=== PATIENT | female | born 1945 | race Caucasian/White ===

== ENCOUNTER 2016-11-02 10:00 | Outpatient (CLI) | payer MEDICARE, OTHER ==
[~2016-11-02] VITALS: Ht 167.6 cm; Wt 71.7 kg
[~2016-11-02 10:00] MED LIST: ALLO100T PO; ASCO500C14 PO; ASP81TEC PO; CHOL5000 PO; CLOP75TA PO; CYAN10006 PO; EXEN5PEN3 SQ; FELO10TA3 PO; FELO5TAB2 PO; FERR-74 PO; FLUT1DIS27 IH; GLIP10TA13 PO; HYDR-3812 PO; HYDR12.56 PO; IRON45TA2 PO; LEVO50TA6 PO; LIOT25TA4 PO; LIRA0.6P INJ; MAGN400T39 PO; METO-272 PO; METO50TA7 PO; MTF500T PO; MULT1CAP27 PO; OLME40TA14 PO; OMEG-105 PO; RT-COMBINH IH; SIMV40TA4 PO; TRAM50TA2 PO; VALS320T14 PO; VITORIN PO
[2016-11-02] MEDS ORDERED: MAGN250T35 PO (10:36)
== END 2016-11-02 11:05 ==
LOC: PREOP 10:00
PROVIDERS: ATTEND Internal Medicine
DX: Z01.818 Encounter for other preprocedural examination (principal); Z12.11 Encounter for screening for malignant neoplasm of colon; K21.9 Gastro-esophageal reflux disease without esophagitis

== ENCOUNTER 2016-11-04 07:14 | Day surgery (SDC) | payer MEDICARE, OTHER ==
[~2016-11-04] VITALS: Ht 167.6 cm; Wt 71.7 kg
[~2016-11-04 07:14] MED LIST changes: +MAGN250T35 PO
[2016-11-04] MEDS ORDERED: 1/2 NS IV SOLUTION 1,000 ML IV STA (07:22)
--- NOTE | 2016-11-04 07:29 | HISTORY AND PHYSICAL ---
DATE OF SERVICE: The patient is a 70-year-old white female referred by Dr. Hughes for screening colonoscopy. She has had one other colonoscopy a little over 10 years ago that she believes was unremarkable. She did have an episode of diarrhea starting about 3 weeks ago that lasted for 2 weeks. She was started on a probiotic a little over a week ago and reports that bowel habits are just about back to normal. She denies weight loss, bright red blood per rectum, melena or associated lower quadrant abdominal pain. She does report increased epigastric discomfort with increased antacid usage for the past several months. She denies dysphagia. She is not aware of any past history of peptic ulcer disease. She is on no nonsteroidal medication but does take an aspirin daily for secondary prevention. PAST MEDICAL HISTORY: Significant for type 2 diabetes mellitus, hypertension, hyperlipidemia and coronary artery disease. She has a distant past history of coronary artery stent placement. PAST SURGICAL HISTORY: She has had a total abdominal hysterectomy for benign reasons and some orthopedic surgeries. SOCIAL HISTORY: She is retired with no past smoking history and no reported alcohol intake. FAMILY HISTORY: She is not aware of any family history for colon cancer or colon polyps. Her mother of breast cancer at the age of 60. Father at age 69 with history of COPD and heart disease. MEDICATIONS: 1. Levothyroxine 50 mcg daily. 2. Glipizide 10 mg b.i.d. 3. Hydrochlorothiazide 12.5 ever other day. 4. Felodipine 10 mg daily. 5. Allopurinol 100 mg b.i.d. 6. Simvastatin 40 mg daily. 7. Metoprolol 50 mg daily. 8. Aspirin 81 mg daily. 9. Vitamin D 5000 units daily. 10. Victoza 1.2 mg subcu daily. 11. Fish oil 1 gm b.i.d. 12. Vitamin C. 13. Had been on ferrous sulfate 325 mg daily. 14. Magnesium 400 mg daily. PHYSICAL EXAMINATION: Reveals a pleasant white female, appears to be in no acute distress. BLOOD PRESSURE: 136/64. ORAL CAVITY: Reveals Mallampati class III pharyngeal configuration. NECK: No JVD, adenopathy or bruits. CHEST: Clear. CARDIOVASCULAR: Regular rate and rhythm without murmur, S3 or S4. ABDOMEN: Soft, supple. There is epigastric discomfort to palpation without rebound or guarding. No bruits are noted. EXTREMITIES: Reveal no clubbing, cyanosis or edema. ASSESSMENT: The patient is set up for screening colonoscopy as well as diagnostic esophagogastroduodenoscopy. The latter due to epigastric pain and increased reflux symptoms. She is advised to abstain from aspirin usage. Prep instructions with split dose Colyte were given and questions were answered. She is set up for November 04, 2016. Job ID: [id number] DocumentID: [id number] Dictated Date: 10/27/2016 08:47:23 Source Water Protection Specialist Date: 10/27/2016 10:29:09 Dictated By: DAREN ALMODOVAR MD MTDD
[2016-11-04] MEDS ORDERED: NALOXONE 0.4 MG/ML 1 ML (NARCAN) VIAL IVP PRN (07:30)
[2016-11-04] MEDS ORDERED: LIDOCAINE JELLY 2% (XYLOCAINE) 5 ML TUBE MM PRN (07:30)
[2016-11-04] MEDS ORDERED: FLUMAZENIL (ROMAZICON) 0.1 MG/ML 5 ML VIAL INJ PRN (07:30)
[2016-11-04] MEDS ORDERED: HURRICAINE EXT TUBE (BENZOCAINE) XX PRN (07:30)
[2016-11-04] MEDS ORDERED: 1/2 NS IV SOLUTION 1,000 ML IV ONE (07:37)
[2016-11-04 07:45] VITALS: BP 150/72
[2016-11-04] MEDS ORDERED: HURRICAINE EXT TUBE (BENZOCAINE) ONE (08:12)
[2016-11-04] MEDS ORDERED: fentaNYL INJECTION 100 MCG/2 ML AMP ONE ×2 (08:12)
[2016-11-04] MEDS ORDERED: LIDOCAINE JELLY 2% (XYLOCAINE) 5 ML TUBE ONE (08:12)
[2016-11-04] MEDS ORDERED: MIDAZOLAM 2 MG/2 ML (VERSED) VIAL ONE ×3 (08:12)
[2016-11-04] MEDS: fentaNYL INJECTION 100 MCG/2 ML AMP IVP PRN ×3 (08:40→08:55)
[2016-11-04] MEDS: MIDAZOLAM 2 MG/2 ML (VERSED) VIAL IVP PRN ×4 (08:41→09:15)
--- NOTE | 2016-11-04 09:34 | Pre-Op Note & Conscious Sedat ---
Pre-Operative Progress Note H&P Reviewed The H&P was reviewed, patient examined and no changes noted. Date H&P Reviewed: November 04, 2016 Time H&P Reviewed: 08:00 Conscious Sedation Pre-Proced ASA Class: 2 Airway Mallampati Classification: (huslia appropriate class) I. II. III, IV Lungs Heart ASA score ASA 1: a normal healthy patient ASA 2: a patient with a mild systemic disease (mid diabetes, controlled hypertension, obesity ASA 3: a patient with a severe systemic disease that limits activity (angina , COPD, prior Myocardial infarction) ASA 4: a patient with an incapacitating disease that is a constant threat to life (CHF, renal failure) ASA 5: a moribund patient not expected to survive 24 hrs. (ruptured aneurysm) ASA 6: a declared brain patient whose organs are being harvested. For emergent operations, add the letter E after the classification Grade 3 Sedation Plan: Analgesia, Amnesia, Plan communicated to team members, Discussed options with patient/fam, Discussed risks with patient/fam Note The patient is an appropriate candidate to undergo the planned procedure, sedation, and anesthesia. The patient immediately re-assessed prior to indication. DAREN ALMODOVAR MD November 04, 2016 09:33
[2016-11-04 09:45] VITALS: BP 147/72
[2016-11-04 10:15] VITALS: BP 124/77
[2016-11-04 10:30] VITALS: BP 124/77
--- NOTE | 2016-11-05 03:26 | OPERATIVE REPORT ---
DATE OF SERVICE: COLONOSCOPY AND DIAGNOSTIC ESOPHAGOGASTRODUODENOSCOPY INDICATION FOR PROCEDURE: Screening colonoscopy as well as diagnostic EGD due to epigastric pain with reflux symptoms. The patient was placed in the left lateral decubitus position. Rectal evaluation was performed. Anal sphincterotome was normal and the perianal reflex was intact. No abnormalities were noted on additional inspection of the anal canal or distal rectal vault. The colonoscope was then inserted into the rectum under direct visualization and advanced to the cecum. The cecum was identified by identification of the ileocecal valve and the cecal strap. Photographic documentation was obtained. A careful inspection was made as the colonoscope was withdrawn. FINDINGS: There was no evidence for internal or external hemorrhoids. The rectum, sigmoid colon, descending colon, transverse colon, ascending colon and the cecum were unremarkable with no evidence for neoplasia, diverticular disease or vascular malformation. ASSESSMENT: Normal colonoscopy to the cecum. As the patient denies any history of first-degree relatives with colon cancer, considering this patient's age, future screening colonoscopy is debatable but would reevaluate in 10 years. We then proceeded with esophagogastroduodenoscopy evaluation. The upper endoscope was inserted into the oral cavity and under direct visualization the esophagus was intubated. The scope was passed down the esophagus through the stomach and into the second portion of the duodenum. A careful inspection was made as the endoscope was withdrawn. FINDINGS: The esophagus was unremarkable. There was no evidence of rings, webs, strictures or Rascon's change. The Z-line was distinct with no evidence for ulceration. The cardia, fundus and antrum of the stomach were unremarkable. The pylorus, the pyloric channel, the duodenal bulb and second portion of the duodenum were unremarkable as well with no evidence of peptic ulcer disease. There is evidence for a small sliding hiatal hernia. ASSESSMENT: Small hiatal hernia is noted without evidence for erosive esophagitis. The patient was reassured by today's findings. She was advised to continued p.r.n. antacid therapy and non-medication reflux measures were discussed as well. I thank you for the referral of this pleasant lady. Sincerely, Job ID: [id number] DocumentID: [id number] Dictated Date: 11/04/2016 11:50:37 Currency Machine Operator Date: 11/05/2016 03:25:24 Dictated By: DAREN ALMODOVAR MD [facility]
== END 2016-11-04 10:30 | disposition home or self-care (01) ==
LOC: ENDO 07:14
PROVIDERS: ATTEND Internal Medicine
DX: Z12.11 Encounter for screening for malignant neoplasm of colon (principal); K21.9 Gastro-esophageal reflux disease without esophagitis; K44.9 Diaphragmatic hernia without obstruction or gangrene; E11.9 Type 2 diabetes mellitus without complications; I10 Essential (primary) hypertension; E78.5 Hyperlipidemia, unspecified; I25.10 Atherosclerotic heart disease of native coronary artery without angina pectoris; Z95.5 Presence of coronary angioplasty implant and graft; Z79.899 Other long term (current) drug therapy
CPT/HCPCS: 43235; G0121

== ENCOUNTER 2016-12-12 09:37 | Emergency (ER) | payer MEDICARE, OTHER ==
[~2016-12-12] VITALS: Ht 167.6 cm; Wt 70.3 kg
[2016-12-12] MEDS ORDERED: KETOROLAC 30 MG/ML VIAL IM ONE (10:45)
--- NOTE | 2016-12-12 11:06 | ED Back Pain ---
General Chief Complaint: Back Problems Stated Complaint: BACK PAIN Nursing Triage Note: STATES SHE SPENT MOST OF THE DAY [employer] ON MONDAY BENDING OVER ALOT. HAS HAD BACK PAIN SINCE BUT MORE SO YESTERDAY AND TODAY. STATES SHE TOOK A HYDROCODONE DURING THE NOC BUT DID NOT SLEEP WELL. Nursing Sepsis Screen: No Definite Risk Source of Information: Patient Exam Limitations: No Limitations History of Present Illness Time Seen by Provider: 10:25 Initial Comments This 71-year-old woman presents to emergency room with complaints of lower back pain progressively worsening since Monday when she stood to can beats all day. She has a history of lumbar spine problems and right sacroiliac problems. She had previously received injections for this problem but her provider moved from the area. She has some associated right knee pain which is not unusual for her. She denies any paresthesias or weakness in the extremities. She has chronic incontinence problems but denies any acute bowel or bladder changes. She took a hydrocodone at home which was not very helpful. She has not used any NSAIDs yet. Allergies and Home Medications Allergies Coded Allergies: aspirin (Unverified Allergy, Mild, HIVES, 01/15/10) CAN TAKE THE 81MG BUT NOT THE 325MG acetaminophen (Unverified Adverse Reaction, Mild, HALLUCINATIONS, 01/15/10) oxycodone (Unverified Adverse Reaction, Mild, HALLUCINATIONS, 01/15/10) Home Medications Allopurinol 100 Mg Tablet, 100 MG PO BID, (Reported) Ascorbic Acid 500 Mg Capsule.sa, 500 MG PO DAILY, (Reported) Aspirin 81 Mg Tabec, 81 MG PO DAILY, (Reported) Cephalexin 500 Mg Capsule, 500 MG PO TID, #21 Prescribed by: INÉS GANDHI on 12/12/16 1403 Cholecalciferol (Vitamin D3) 5,000 Unit Capsule, 5,000 UNIT PO DAILY, (Reported) Cyanocobalamin (Vitamin B-12) 1,000 Mcg Tablet, 1,000 MCG PO DAILY, (Reported) Cyclobenzaprine HCl 10 Mg Tablet, 10 MG PO TID PRN for SPASMS, #10 Prescribed by: INÉS GANDHI on 12/12/16 1403 Felodipine 10 Mg Tab.er.24h, 10 MG PO DAILY, (Reported) Ferrous Sulfate 325 Mg Tablet, 325 MG PO DAILY, (Reported) Glipizide 10 Mg Tablet, 10 MG PO BID, (Reported) Hydrochlorothiazide 12.5 Mg Tablet, 12.5 MG PO TuThSa, (Reported) Levothyroxine Sodium 50 Mcg Tablet, 50 MCG PO DAILY, (Reported) Liraglutide 0.6 Mg/0.1 Ml Pen.injctr, 1.2 MG INJ DAILY, (Reported) Magnesium Oxide 250 Mg Tablet, 250 MG PO DAILY, (Reported) Metoprolol Succinate 50 Mg Tab.er.24h, 50 MG PO HS, (Reported) Multivitamins 1 Each Capsule, 1 TAB PO DAILY, (Reported) [place]-3 Acid Ethyl Esters 1 Gm Capsule, 1 GM PO DAILY, (Reported) [place]-3 Acid Ethyl Esters 1 Gm Capsule, 2 GM PO EVERY EVENING, (Reported) TAKES 2 (1 GM) TABLETS Prednisone 10 Mg Tab, 10 MG PO DAILY, #5 Prescribed by: INÉS GANDHI on 12/12/16 1403 Simvastatin 40 Mg Tablet, 40 MG PO HS, (Reported) Constitutional: no symptoms reported EENTM: no symptoms reported Respiratory: no symptoms reported Cardiovascular: no symptoms reported Gastrointestinal: no symptoms reported Genitourinary: see HPI Musculoskeletal: see HPI Skin: no symptoms reported Psychiatric/Neurological: No Symptoms Reported Past Wgtmpqv-Sosrlt-Mesnng Hx Patient Social History Alcohol Use: Denies Use Recreational Drug Use: No Smoking Status: Never a Smoker Recent Foreign Travel: No Contact w/Someone Who Travel: No Recent Infectious Disease Expo: No Recent Hopitalizations: No Immunizations Up To Date Tetanus Booster (TDap): Unknown Date of Pneumonia Vaccine: May 09, 2014 Date of Influenza Vaccine: May 11, 2016 Seasonal Allergies Seasonal Allergies: No Surgeries HX Surgeries: Yes (FOOT SURGERY, bilat TKR, R hip replaced) Surgeries: Coronary Stent, Gallbladder, Hysterectomy, Joint Replacement, Orthopedic Respiratory Hx Respiratory Disorders: Yes Respiratory Disorders: Chronic Bronchitis Cardiovascular Hx Cardiac Disorders: Yes Cardiac Disorders: Coronary Artery Disease, High Cholesterol, Hypertension Neurological Hx Neurological Disorders: No Reproductive System Hx Reproductive Disorders: No Sexually Transmitted Disease: No HIV/AIDS: No Female Reproductive Disorders: Denies CAT DRIVER History: Hysterectomy Genitourinary Hx Genitourinary Disorders: Yes (bladder prolapse, kidney disease, incontinence ) Genitourinary Disorders: Renal Failure Gastrointestinal Hx Gastrointestinal Disorders: Yes (recent diarrhea for about 16 days) Gastrointestinal Disorders: Gastroesophageal Reflux Musculoskeletal Hx Musculoskeletal Disorders: Yes Musculoskeletal Disorders: Osteoporosis, Arthritis, Back Injury, Chronic Back Pain Endocrine Hx Endocrine Disorders: Yes Endocrine Disorders: Hypothyroidsim, Diabetes, Non-Insulin dep HEENT HX ENT Disorders: No Loss of Vision: Denies Hearing Impairment: Denies Cancer Hx Cancer: No Psychosocial Hx Psychiatric Problems: No Integumentary HX Skin/Integumentary Disorder: No Blood Transfusions Hx Blood Disorders: No Family Medical History Significant Family History: No Pertinent Family Hx Physical Exam Vital Signs Vital Sign - Last 12Hours 12/12/16 12/12/16 09:37 14:22 Temp 98.0 Pulse 74 Resp 16 B/P (MAP) 153/71 Pulse Ox 98 O2 Delivery Room Air Capillary Refill : Less Than 3 Seconds General Appearance: No Apparent Distress, WD/WN HEENT: Normal ENT Inspection Neck: Normal Inspection Cardiovascular: Regular Rate, Rhythm, No Edema, Systolic Murmur Respiratory: Lungs Clear, Normal Breath Sounds, No Accessory Muscle Use, No Respiratory Distress Gastrointestinal: Normal Bowel Sounds, Soft, Tenderness (mild in the left lower quadrant) Back: Normal Inspection, No Vertebral Tenderness (mid lumbar spine and paraspinous muscles down into the SI joint region) Extremity: Normal Inspection Neurologic/Psychiatric: Alert, Oriented x3, No Motor/Sensory Deficits, Normal Mood/Affect, director software quality assurance II-XII Norm as Tested Skin: Normal Color, Warm/Dry Progress/Results/Core Measures Results/Orders Lab Results Laboratory Tests Test 12/12/16 11:15 Range/Units Urine Color YELLOW Urine Clarity SLIGHTLY CLOUDY Urine pH 7 5-9 Urine Specific [place] 1.010 L 1.016-1.022 Urine Protein 3+ H NEGATIVE Urine Glucose (UA) NEGATIVE NEGATIVE Urine Ketones NEGATIVE NEGATIVE Urine Nitrite NEGATIVE NEGATIVE Urine Bilirubin NEGATIVE NEGATIVE Urine Urobilinogen NORMAL NORMAL MG/DL Urine Leukocyte Esterase 3+ H NEGATIVE Urine RBC (Auto) NEGATIVE NEGATIVE Urine RBC 0-2 /HPF Urine WBC 25-50 H /HPF Urine Squamous Epithelial Cells 5-10 /HPF Urine Crystals NONE /LPF Urine Bacteria NEGATIVE /HPF Urine Casts NONE /LPF Urine Mucus NEGATIVE /LPF Urine Culture Indicated YES My Orders Orders - INÉS AGUILAR MD Ketorolac Injection (Toradol Injection) (12/12/16 10:45) Ua Culture If Indicated (12/12/16 10:40) Orphenadrine Injection (Norflex Injectio (12/12/16 11:45) Hydrocodone/Apap 5/325 Tablet (Lortab 5 (12/12/16 11:45) Mri Lumbar Spine W/O Contrast (12/12/16 11:34) Urine Culture (12/12/16 11:15) Hydrocodone/Apap 5/325 Tablet (Lortab 5 (12/12/16 14:00) Medications Given in ED Current Medications Medications Dose Ordered Sig/Aron Route Start Time Stop Time Status Last Admin Dose Admin Acetaminophen/ Hydrocodone Bitart 1 tab ONCE ONCE PO 12/12/16 11:45 12/12/16 11:46 DC 12/12/16 11:39 1 TAB Acetaminophen/ Hydrocodone Bitart 1 tab ONCE ONCE PO 12/12/16 14:00 12/12/16 14:01 DC 12/12/16 14:15 1 TAB Ketorolac Tromethamine 30 mg ONCE ONCE IM 12/12/16 10:45 12/12/16 10:46 DC 12/12/16 10:45 30 MG Orphenadrine Citrate 60 mg ONCE ONCE IM 12/12/16 11:45 12/12/16 11:46 DC 12/12/16 11:40 60 MG Vital Signs/I&O Vital Sign - Last 12Hours 12/12/16 12/12/16 09:37 14:22 Temp 98.0 Pulse 74 78 Resp 16 16 B/P (MAP) 153/71 Pulse Ox 98 96 O2 Delivery Room Air Blood Pressure Mean: 98 Progress Note #1: Progress Note Patient received a Toradol injection which improved her pain some. She was able to get up and provide a urine sample. Progress Note #2: Time: 11:46 Progress Note Patient has modest improvement in pain after Toradol. She is still experiencing paroxysms of pain which she believes are spasms. Norflex and hydrocodone have been ordered. I inquired further about her incontinence. She reports this is been progressive over about 6 months. Additional inquired about prior imaging of the spine. She has not had any imaging of the spine beyond x-rays in several years and she has a known significant injury to the lumbar spine from her youth. MRI has been ordered for further evaluation as her incontinence may be related. UTI has also been identified which is probably a contributing factor. Progress Note #3: Progress Note MRI demonstrated some neural foraminal stenosis but no central stenosis. Patient was treated with one additional hydrocodone before dismissal. We discussed steroids which she will start if not improving over the next couple of days. She is aware steroids may cause blood sugar dyscrasias and she will monitor this. We discussed potentially seeking referral to a neurosurgeon or smoke and flame specialist. Diagnostic Imaging Diagonstic Imaging: MRI Plain Films/CT/US/NM/MRI: other (lumbar spine) Comments MRI of the lumbar spine viewed by me and report reviewed. See report below: NAME: SOPHIA CHOPRA [facility] REC#: [id number] PT STATUS: REG ER : 1945 PHYSICIAN: INÉS AGUILAR MD ADMIT DATE: 12/12/16/ER Draft Date of Exam:12/12/16 MRI LUMBAR SPINE W/O CONTRAST PROCEDURE: MRI lumbar spine. TECHNIQUE: A multiplanar/multisequence MRI of the lumbar spine was performed without contrast. INDICATION: Severe back pain. FINDINGS: There is grade 1 retrolisthesis of L2 over L3 and grade 1 spondylolisthesis of L4 over L5. The vertebral body heights are preserved. There is mild disc height loss at the L2-3, L4-5, and L5-S1 levels. There is disc desiccation at all levels. There is prominent facet joint arthropathy in the mid and lower lumbar spine levels with effusions in the L2-3 to L4-5 facet joints and some fluid is also seen between the spinous processes of L2 and L3 and also the spinous processes of L3 and L4. Bone marrow edema around the L2-3 disc is seen, compatible with Modic type I changes. No suspicious focal marrow lesion is seen. The cauda equina and conus medullaris appear grossly unremarkable. T12-L1: No disc herniation. No spinal canal or foraminal stenosis. L1-2: No disc herniation. No spinal canal or foraminal stenosis. L2-3: There is diffuse disc bulge and mild to moderate facet hypertrophy. No central canal stenosis. There is mild to moderate lateral recess stenosis bilaterally abutting the descending L3 nerve roots. The foramina demonstrate moderate narrowing bilaterally. L3-4: There is a diffuse disc bulge and bilateral facet arthropathy, severe on the left and moderate on the right side. No central canal stenosis. There is moderate lateral recess stenosis on the left abutting the descending L4 nerve root. The right lateral recess is patent. There is foraminal stenosis of a moderate degree on both sides, worse on the left. L5-S1: There is a diffuse disc bulge and severe bilateral facet arthropathy. No central canal stenosis. There is moderate to severe bilateral lateral recess stenosis with suggestion of encroachment on the descending L5 nerve roots. The foramina demonstrate mild narrowing bilaterally. L5-S1: Mild disc bulge and mild facet hypertrophy are seen. No central canal stenosis. There is mild lateral recess stenosis bilaterally. The foramina demonstrates severe stenosis on the left and mild stenosis on the right. IMPRESSION: Advanced facet and disc degenerative changes in the mid and lower lumbar spine levels. There is significant lateral recess stenosis bilaterally at the L4-5 level encroaching upon the descending L5 nerve roots. Other findings as above. Dictated on workstation # [id number] Dict: 12/12/16 1308 Trans: 12/12/16 1332 [id number] Interpreted by: NEVA MCDUFFIE MD Departure Impression Impression: Primary Impression: Lower back pain Qualified Codes: M54.5 - Low back pain Additional Impressions: Urinary tract infection Qualified Codes: N39.0 - Urinary tract infection, site not specified Urinary incontinence Qualified Codes: R32 - Unspecified urinary incontinence Muscle spasm Neuroforaminal stenosis of lumbar spine Disposition: 01 HOME, SELF-CARE Condition: Improved Departure-Patient Inst. Decision time for Depature: 13:45 Referrals: MIRI AVILEZ MD (PCP/Family) Primary Care Physician Patient Instructions: Urinary Tract Infections in Adults Add. Discharge Instructions: Drink plenty of clear liquids. Complete your antibiotic as prescribed. Follow- up with your primary care provider in 2 or 3 days to review the urine culture results. This will ensure you are taking an antibiotic appropriate for your bladder infection. You may take hydrocodone up to one tablet every 4 hours as needed for pain. Use a stool softener such as Colace while you are on narcotics to avoid constipation. If you're not improving after a couple of days, you may try the prednisone as prescribed. Monitor your blood sugars closely while on prednisone. Stop prednisone if blood sugars become too elevated. Consider seeking referral to a smoke and flame specialist or neurosurgeon when seeing your primary care provider. All discharge instructions reviewed with patient and/or family. Voiced understanding. Scripts Cyclobenzaprine HCl (Cyclobenzaprine HCl) 10 Mg Tablet 10 MG PO TID Y for SPASMS, #10 TAB Prov: INÉS AGUILAR MD 12/12/16 Cephalexin (Keflex) 500 Mg Capsule 500 MG PO TID, #21 CAP Prov: INÉS AGUILAR MD 12/12/16 Prednisone (Prednisone) 10 Mg Tab 10 MG PO DAILY, #5 TAB Prov: INÉS AGUILAR MD 12/12/16 Copy Copies To 1: MIRI AVILEZ MD, JOSHUA T MD Dec 12, 2016 11:06
[2016-12-12 11:28] LABS: BILIRUBIN,URINE NEGATIVE (NEGATIVE); KETONES,URINE NEGATIVE (NEGATIVE); LEUKOCYTE ESTERASE ,URINE 3+ (NEGATIVE); NITRITE,URINE NEGATIVE (NEGATIVE); PH,URINE 7 (5-9); PROTEIN,URINE 3+ (NEGATIVE); UROBILINOGEN,URINE NORMAL (NORMAL)
[2016-12-12 11:37] LABS: WBC,URINE 25-50 /HPF
[2016-12-12] MEDS ORDERED: HYDROcodone/APAP 5 MG/325 MG (LORTAB) TAB PO ONE ×2 (11:45→14:00)
[2016-12-12] MEDS ORDERED: ORPHENADRINE 60 MG/2 ML (NORFLEX) AMP IM ONE (11:45)
--- NOTE | 2016-12-12 13:33 | Diagnostic Imaging Report ---
PROCEDURE: MRI lumbar spine. TECHNIQUE: A multiplanar/multisequence MRI of the lumbar spine was performed without contrast. INDICATION: Severe back pain. FINDINGS: There is grade 1 retrolisthesis of L2 over L3 and grade 1 spondylolisthesis of L4 over L5. The vertebral body heights are preserved. There is mild disc height loss at the L2-3, L4-5, and L5-S1 levels. There is disc desiccation at all levels. There is prominent facet joint arthropathy in the mid and lower lumbar spine levels with effusions in the L2-3 to L4-5 facet joints and some fluid is also seen between the spinous processes of L2 and L3 and also the spinous processes of L3 and L4. Bone marrow edema around the L2-3 disc is seen, compatible with Modic type I changes. No suspicious focal marrow lesion is seen. The cauda equina and conus medullaris appear grossly unremarkable. T12-L1: No disc herniation. No spinal canal or foraminal stenosis. L1-2: No disc herniation. No spinal canal or foraminal stenosis. L2-3: There is diffuse disc bulge and mild to moderate facet hypertrophy. No central canal stenosis. There is mild to moderate lateral recess stenosis bilaterally abutting the descending L3 nerve roots. The foramina demonstrate moderate narrowing bilaterally. L3-4: There is a diffuse disc bulge and bilateral facet arthropathy, severe on the left and moderate on the right side. No central canal stenosis. There is moderate lateral recess stenosis on the left abutting the descending L4 nerve root. The right lateral recess is patent. There is foraminal stenosis of a moderate degree on both sides, worse on the left. L5-S1: There is a diffuse disc bulge and severe bilateral facet arthropathy. No central canal stenosis. There is moderate to severe bilateral lateral recess stenosis with suggestion of encroachment on the descending L5 nerve roots. The foramina demonstrate mild narrowing bilaterally. L5-S1: Mild disc bulge and mild facet hypertrophy are seen. No central canal stenosis. There is mild lateral recess stenosis bilaterally. The foramina demonstrates severe stenosis on the left and mild stenosis on the right. IMPRESSION: Advanced facet and disc degenerative changes in the mid and lower lumbar spine levels. There is significant lateral recess stenosis bilaterally at the L4-5 level encroaching upon the descending L5 nerve roots. Other findings as above. Dictated by: Dictated on workstation # [id number]
[2016-12-12] MEDS ORDERED: CEPH-507 PO (14:03)
[2016-12-12] MEDS ORDERED: PRD10T PO (14:03)
[2016-12-12] MEDS ORDERED: CYCL10TA9 PO (14:03)
[2016-12-12 14:22] VITALS: BP 143/79
== END 2016-12-12 14:22 | disposition home or self-care (01) ==
LOC: EDUNIT# 09:37 → ER 09:39
DX: M54.5 Low back pain (principal); N39.0 Urinary tract infection, site not specified; M62.838 Other muscle spasm; M48.06 Spinal stenosis, lumbar region; I25.10 Atherosclerotic heart disease of native coronary artery without angina pectoris; I10 Essential (primary) hypertension; E78.00 Pure hypercholesterolemia, unspecified; E03.9 Hypothyroidism, unspecified; E11.9 Type 2 diabetes mellitus without complications; Z79.84 Long term (current) use of oral hypoglycemic drugs; Z79.82 Long term (current) use of aspirin; Z90.710 Acquired absence of both cervix and uterus; Z95.5 Presence of coronary angioplasty implant and graft
CPT/HCPCS: 72148; 81000; 87077; 87088; 87186; 99283

== ENCOUNTER → 2016-12-21 | Outpatient (CLI) | payer MEDICARE, OTHER ==
[~2016-12-21] MED LIST changes: +CEPH-507 PO; +CYCL10TA9 PO; +PRD10T PO
== END ==
DX: R07.81 Pleurodynia (principal)

== ENCOUNTER 2017-08-14 14:35 | Emergency (ER) | payer MEDICARE, OTHER ==
[~2017-08-14] VITALS: Ht 167.6 cm; Wt 74.8 kg
[~2017-08-14 14:35] MED LIST changes: +ACHD5005 PO; -FERR-74 PO; +FERR325T18 PO; -HYDR-3812 PO; -METO-272 PO; +METO-370 PO
[2017-08-14] MEDS ORDERED: TETANUS,DIPTH,PERTUSS P/F (BOOSTRIX) 0.5 ML VIAL IM ONE (16:30)
--- NOTE | 2017-08-14 16:32 | ED Fall/Injury ---
General Chief Complaint: Trauma-Non Activation Stated Complaint: NOSE INJ Nursing Triage Note: ARRIVED VIA WC TO ROOM 01. PT WAS SENT OVER FROM [facility]. AROUND 11AM PT SLIPPED ON ICE AND FELL TO HER KNEES AND FACE PLANTED ONTO A STACK OF WOOD. PT HAS A KNOWN NASAL FRACTURE AND A LACERATION THAT HAS BEEN STITCHED. IN REPORT THEY STATED THEY THINK HER TEETH MIGHT HAVE GONE THRU HER LIPS IN SEVERAL PLACES. PT STATES THEY DID NOT -RAY HER KNEES AND FAMILY THINKS SHE NEEDS THEM. Source: patient, family Exam Limitations: no limitations History of Present Illness Date Seen by Provider: Aug 14, 2017 Time Seen by Provider: 16:15 Initial Comments Patient presents to ER by private conveyance where she comes from [facility] were she was seen after she had a fall this morning. She was on the third step above ground and fell flat on her face. She has x-rays at that time in [place] showing normal C-spine and a fractured right nasal bone. She also has a laceration that was sutured up at the ER. She was unable to breathe out of her left nostril and having some nasal bleeding so the concern was that she needed a CT scan of her head and subtly asked them patient to come straight to the ER. [facility] Patient did not have loss of consciousness, nausea vomiting, dizziness. She slipped on ice and denies any dysuria, discharge, fever, chest pain, shortness of breath. She has had both her knees replaced in the past and she says she did land on her knees and was having quite a bit of tenderness there but no x-rays were obtained at that time. She is able to stand and walk on her own. She did have an x-ray of her chest showing no fractured ribs as well as her shoulders and neck and face. She says they're of blood obtained and apparently nothing wrong or anemia. This provider also spoke over the phone with the MICHEL Degroot prior to the patient being sent up. Denies blood thinners. Allergies and Home Medications Allergies Coded Allergies: aspirin (Unverified Allergy, Mild, HIVES, 01/15/10) CAN TAKE THE 81MG BUT NOT THE 325MG acetaminophen (Unverified Adverse Reaction, Mild, HALLUCINATIONS, 01/15/10) oxycodone (Unverified Adverse Reaction, Mild, HALLUCINATIONS, 01/15/10) Home Medications Allopurinol 100 Mg Tablet, 100 MG PO BID, (Reported) Ascorbic Acid 500 Mg Capsule.sa, 500 MG PO DAILY, (Reported) Aspirin 81 Mg Tabec, 81 MG PO DAILY, (Reported) Cephalexin 500 Mg Capsule, 500 MG PO TID, #21 Prescribed by: INÉS GANDHI on 12/12/16 1403 Cholecalciferol (Vitamin D3) 5,000 Unit Capsule, 5,000 UNIT PO DAILY, (Reported) Cyanocobalamin (Vitamin B-12) 1,000 Mcg Tablet, 1,000 MCG PO DAILY, (Reported) Cyclobenzaprine HCl 10 Mg Tablet, 10 MG PO TID PRN for SPASMS, #10 Prescribed by: INÉS GANDHI on 12/12/16 1403 Felodipine 10 Mg Tab.er.24h, 10 MG PO DAILY, (Reported) Ferrous Sulfate 325 Mg Tablet, 325 MG PO DAILY, (Reported) Glipizide 10 Mg Tablet, 10 MG PO BID, (Reported) Hydrochlorothiazide 12.5 Mg Tablet, 12.5 MG PO TuThSa, (Reported) Levothyroxine Sodium 50 Mcg Tablet, 50 MCG PO DAILY, (Reported) Liraglutide 0.6 Mg/0.1 Ml Pen.injctr, 1.2 MG INJ DAILY, (Reported) Magnesium Oxide 250 Mg Tablet, 250 MG PO DAILY, (Reported) Metoprolol Succinate 50 Mg Tab.er.24h, 50 MG PO HS, (Reported) Multivitamins 1 Each Capsule, 1 TAB PO DAILY, (Reported) Dover-3 Acid Ethyl Esters 1 Gm Capsule, 1 GM PO DAILY, (Reported) [place]-3 Acid Ethyl Esters 1 Gm Capsule, 2 GM PO EVERY EVENING, (Reported) TAKES 2 (1 GM) TABLETS Prednisone 10 Mg Tab, 10 MG PO DAILY, #5 Prescribed by: INÉS GANDHI on 12/12/16 1403 Simvastatin 40 Mg Tablet, 40 MG PO HS, (Reported) Constitutional: No chills, No diaphoresis Eyes: Denies Blindness, Denies Blurred Vision Ears, Nose, Mouth, Throat: denies ear pain, denies ear discharge, nose pain, loose teeth (ant upper incisor tender after having it pressed thruough her upper lip. ) Respiratory: No cough, No phlegm Cardiovascular: see HPI, chest pain, No palpitations Gastrointestinal: No abdominal pain, No constipation, No diarrhea, No nausea Genitourinary: No discharge, No dysuria Past Mypoegp-Jqqclx-Lcnhke Hx Patient Social History Alcohol Use: Denies Use Recreational Drug Use: No Smoking Status: Never a Smoker Recent Foreign Travel: No Contact w/Someone Who Travel: No Recent Infectious Disease Expo: No Recent Hopitalizations: No Immunizations Up To Date Tetanus Booster (TDap): Unknown Date of Pneumonia Vaccine: May 09, 2014 Date of Influenza Vaccine: May 11, 2016 Seasonal Allergies Seasonal Allergies: No Surgeries History of Surgeries: Yes (FOOT SURGERY, bilat TKR, R hip replaced) Surgeries: Coronary Stent, Gallbladder, Hysterectomy, Joint Replacement, Orthopedic Respiratory History of Respiratory Disorde: Yes Respiratory Disorders: Chronic Bronchitis Currently Using CPAP: No Currently Using BIPAP: No Cardiovascular History of Cardiac Disorders: Yes Cardiac Disorders: Coronary Artery Disease, High Cholesterol, Hypertension Neurological History of Neurological Disord: No Reproductive System Hx Reproductive Disorders: No Sexually Transmitted Disease: No HIV/AIDS: No Female Reproductive Disorders: Denies FOOD EXPEDITOR History: Hysterectomy Genitourinary History of Genitourinary Disor: Yes Genitourinary Disorders: Renal Failure Gastrointestinal History of Gastrointestinal Di: Yes Gastrointestinal Disorders: Gastroesophageal Reflux Musculoskeletal History of Musculoskeletal Dis: Yes Musculoskeletal Disorders: Osteoporosis, Arthritis, Back Injury, Chronic Back Pain Endocrine History of Endocrine Disorders: Yes Endocrine Disorders: Hypothyroidsim, Diabetes, Non-Insulin dep HEENT Loss of Vision: Denies Hearing Impairment: Denies Cancer History of Cancer: No Psychosocial History of Psychiatric Problem: No Integumentary History of Skin or Integumenta: No Blood Transfusions History of Blood Disorders: No Family Medical History Significant Family History: No Pertinent Family Hx Physical Exam Vital Signs Vital Signs - First Documented 08/14/17 15:40 Temp 98.4 Pulse 74 Resp 18 B/P (MAP) 135/73 (93) Pulse Ox 97 Capillary Refill : Less Than 3 Seconds General Appearance: WD/WN, no apparent distress HEENT: PERRL/EOMI, TMs normal, pharynx normal, other (left anterior a left nosebleed with a 1 cm laceration; super glabellar hematoma 101) Neck: non-tender, full range of motion, supple, normal inspection Cardiovascular: normal peripheral pulses, regular rate, rhythm, no edema Respiratory: chest non-tender, lungs clear, normal breath sounds Gastrointestinal: normal bowel sounds, non tender, soft Neurologic/Psychiatric: 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 Small half centimeter laceration that has been well approximated on the upper lip.) Lymphatic: no adenopathy [place] Coma Score Best Eye Response: (4) Open Spontaneously Best Verbal Response: (5) Oriented Best Motor Response: (6) Obeys Commands [place] Total: 15 Progress/Results/Core Measures Results/Orders My Orders Orders - SHARAD BERNARD Ct Head/Face/Cervical Wo (08/14/17 15:32) Dipht,Pertuss(Acell),Tet Adult (Boostrix (08/14/17 16:30) Knee, 3 Views, Bilateral (08/14/17 16:26) Vital Signs/I&O Vital Sign - Last 12Hours 08/14/17 15:40 Temp 98.4 Pulse 74 Resp 18 B/P (MAP) 135/73 (93) Pulse Ox 97 Blood Pressure Mean: 93 Progress Note : Time: 16:35 Progress Note We will image her knees since they're hurting just make sure the prostheses look to be in good position. Would like to get a CT of her head neck and face make sure there is no trans-maxillary or other fracture to worry about infection risk. She is not having any tenderness or pain on moving her neck. No neurologic symptoms and she had C-spine x-ray so I significant cervical spinal fracture seems much less likely however patient still ruled this out using CT. Used silver cautery on the anterior nose laceration and it is now hemostatic. Diagnostic Imaging Diagonstic Imaging: Xray Plain Films/CT/US/NM/MRI: knee (bilateral 3 views each) Comments Postop changes noted. No acute fractures, loosening or other findings. Reviewed: Reviewed by Me Diagonstic Imaging: CT Plain Films/CT/US/NM/MRI: c-spine, head (maxillofacial) Comments [facility] [place], [place] NAME: SOPHIA CHOPRA REC#: [id number] PT STATUS: REG ER : 1945 PHYSICIAN: SHARAD BERNARD MD ADMIT DATE: 08/14/17/ER Draft Date of Exam:08/14/17 CT HEAD/FACE/CERVICAL WO PROCEDURE: CT head, face, and cervical spine without contrast. TECHNIQUE: Multiple contiguous axial images were obtained through the head, neck, and facial bones without the use of intravenous contrast. Sagittal and coronal reformations through the cervical spine and facial bones were also performed. INDICATION: Trauma. COMPARISON: None. FINDINGS: CT head and maxillofacial: Mildly displaced nasal bone fractures. No other maxillofacial or calvarial fractures. There is a chronic-appearing defect in the floor of the left orbit. Moderate mucosal thickening in the sphenoid sinuses. No air-fluid levels. Mastoids and middle ears are clear. Normal alignment of the temporomandibular joints. There are advanced degenerative changes in both temporomandibular joints. Soft tissue contusion overlying the left frontal bone. No intracranial hemorrhage, mass effect, hydrocephalus or extra-axial fluid collections. No CT evidence of acute infarction. Intracranial vascular calcifications. CT cervical spine: Mild anterolisthesis of C4 on C5 and C7 on T1. Alignment is otherwise unremarkable. Vertebral body heights are preserved. No fractures. There are advanced degenerative endplate changes at C5-T1. No high-grade spinal canal narrowing is evident on this noncontrast exam. Atherosclerotic calcifications in the carotid bifurcations. Lung apices are clear. IMPRESSION: 1. Mildly displaced nasal bone fractures. No other acute fractures. 2. No acute intracranial CT findings. 3. Advanced spondylotic changes in the cervical spine. No acute cervical spine CT findings. Dictated on workstation # [id number] Dict: 08/14/17 1646 Trans: 08/14/17 1700 [facility] [id number] Interpreted by: NAKUL VILLAGRAN MD Electronically signed by: Reviewed: Reviewed by Me Departure Impression Impression: Primary Impression: Fall Qualified Codes: W19.XXXA - Unspecified fall, initial encounter Additional Impressions: Laceration of nose Qualified Codes: S01.21XA - Laceration without foreign body of nose, initial encounter Nasal bone fracture Qualified Codes: S02.2XXA - Fracture of nasal bones, initial encounter for closed fracture Bilateral knee pain Qualified Codes: M25.561 - Pain in right knee; M25.562 - Pain in left knee Rib pain on left side Disposition: 01 HOME, SELF-CARE Condition: Stable Departure-Patient Inst. Decision time for Depature: 17:51 Referrals: MIRI AVILEZ MD (PCP/Family) Primary Care Physician Patient Instructions: Preventing Falls in the Older Adult Add. Discharge Instructions: Use Tylenol and Motrin as needed for your pain. Follow up with your doctor or go back to the ER to put the stitches in within 5-7 days to have them removed. If you begin to have fevers, nausea or other worrisome symptoms come back earlier. If your nose begins to bleed again apply the nasal clamp for 40 minutes and do not blow your nose or dab at it. If he still cannot get the bleeding to stop you may return to care for further evaluation and management. All discharge instructions reviewed with patient and/or family. Voiced understanding. Copy Copies To 1: MIRI AVILEZ MD, TITUS J Aug 14, 2017 16:32
--- NOTE | 2017-08-14 17:01 | Diagnostic Imaging Report ---
PROCEDURE: CT head, face, and cervical spine without contrast. TECHNIQUE: Multiple contiguous axial images were obtained through the head, neck, and facial bones without the use of intravenous contrast. Sagittal and coronal reformations through the cervical spine and facial bones were also performed. INDICATION: Trauma. COMPARISON: None. FINDINGS: CT head and maxillofacial: Mildly displaced nasal bone fractures. No other maxillofacial or calvarial fractures. There is a chronic-appearing defect in the floor of the left orbit. Moderate mucosal thickening in the sphenoid sinuses. No air-fluid levels. Mastoids and middle ears are clear. Normal alignment of the temporomandibular joints. There are advanced degenerative changes in both temporomandibular joints. Soft tissue contusion overlying the left frontal bone. No intracranial hemorrhage, mass effect, hydrocephalus or extra-axial fluid collections. No CT evidence of acute infarction. Intracranial vascular calcifications. CT cervical spine: Mild anterolisthesis of C4 on C5 and C7 on T1. Alignment is otherwise unremarkable. Vertebral body heights are preserved. No fractures. There are advanced degenerative endplate changes at C5-T1. No high-grade spinal canal narrowing is evident on this noncontrast exam. Atherosclerotic calcifications in the carotid bifurcations. Lung apices are clear. IMPRESSION: 1. Mildly displaced nasal bone fractures. No other acute fractures. 2. No acute intracranial CT findings. 3. Advanced spondylotic changes in the cervical spine. No acute cervical spine CT findings. Dictated by: Dictated on workstation # [id number]
--- NOTE | 2017-08-14 17:35 | Diagnostic Imaging Report ---
INDICATION: Status post fall down steps, landing on both knees. TECHNIQUE: 3 views of the bilateral knees CORRELATION STUDY: None FINDINGS: Postop changes of bilateral knee arthroplasties are present. There is also resurfacing of the patella. There is asymmetry with the left joint space larger than the right, may be normal. A few bone fragments noted in and around the knee. An acute appearing bony abnormality however is not suggested. There is the presence of vascular calcifications bilaterally. IMPRESSION: 1. 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 While there is asymmetry with the left joint space wider than the right, no acute bony abnormality is suggested. Dictated by: Dictated on workstation # [id number]
[2017-08-14 17:58] VITALS: BP 141/75
--- OUTSIDE RECORDS SUMMARY | 2017-08-17 12:37 | XMS REPORT | CCD ---
Author Author Melisa Hughes MD, [facility] Address [address] [place] [address] Phone Care Team Providers Care Clinical Support Specialist Name Role Phone PP Unavailable CCM Unavailable Summary Purpose Interface Exchange Insurance Providers Payer name Policy type / Coverage type Covered constitution party ID Effective Begin Date Effective End Date WPS Medicare Part B Medicare Part B [id number] Unknown Unknown GEHA Medicare Part B [id number] Unknown Unknown Family history Grandmother Diagnosis Age At Onset Stroke Unknown Mother Diagnosis Age At Onset Arthritis Unknown Osteoporosis Unknown Breast cancer Unknown Daughter Diagnosis Age At Onset Ovarian cancer Unknown Depression Unknown Cancer Unknown Father Diagnosis Age At Onset Heart disease Unknown Grandfather Diagnosis Age At Onset Diabetes Unknown Brother Diagnosis Age At Onset Hypertension Unknown Asthma Unknown Social History Social History Element Codes Description Effective Dates Marital status Unknown 03/03/2015 Employment Unknown Retired [employer] 03/03/[address]: 464849687 Never smoker 03/03/[address]: 084285898 Never drinks alcohol 03/03/2015 Allergies, Adverse Reactions, Alerts Substance Reaction Codes Entered Date Inactivated Date Status aspirin hives RxNorm: 1191 11/16/2015 No Inactive Date Active Past Medical History Illness Codes Condition Status Onset Date Resolved Date Essential (primary) hypertension ICD-9: 401.1 ICD-10: I10 Active 06/20/2016 Unknown Mixed hyperlipidemia ICD-9: 272.2 ICD-10: E78.2 Active 06/20/2016 Unknown Type 2 diabetes mellitus without complications ICD-9: 250.00 ICD-10: E11.9 Active 03/02/2015 Unknown 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 ICD-10: E11.21 Active 03/02/2015 Unknown Encounter for general adult medical examination with abnormal findings ICD-9: V70.0 ICD-10: Z00.01 Active 01/26/2017 Unknown Generalized anxiety disorder ICD-9: 300.00 ICD-10: F41.1 Active 06/20/2016 Unknown Pleurodynia ICD-9: 786.50 ICD-10: R07.81 Active 12/21/2016 Unknown Low back pain ICD-9: 724.2 ICD-10: M54.5 Active 12/15/2016 Unknown Urinary tract infection, site not specified ICD-9: 599.0 ICD-10: N39.0 Active 12/15/2016 Unknown Other insomnia ICD-9: 327.09 ICD-10: G47.09 Active 10/18/2016 Unknown Acute follicular conjunctivitis, bilateral ICD-9: 372.02 ICD-10: H10.013 Active 05/30/2016 Unknown Cystocele, unspecified ICD-9: 618.01 ICD-10: N81.10 Active 02/21/2016 Unknown Essential (primary) hypertension ICD-9: 401.9 ICD-10: I10 Active 03/02/2015 Unknown Pain in right hip ICD- 9: 719.45 ICD-10: M25.551 Active 02/21/2016 Unknown Pain in right knee ICD -9: 719.46 ICD-10: M25.561 Active 02/21/2016 Unknown Second degree hemorrhoids ICD-9: 455.8 ICD-10: K64.1 Active 02/21/2016 Unknown Sacroiliitis, not elsewhere classified ICD-9: 720.2 ICD-10: M46.1 Active 11/15/2015 Unknown Unspecified inflammatory spondylopathy, sacral and sacrococcygeal region ICD-9: 720.9 ICD-10: M46.98 Active 11/15/2015 Unknown Other specified hypothyroidism ICD-9: 244.9 ICD-10: E03.8 Active 03/02/2015 Unknown Hyperglycemia, unspecified ICD-9: 790.29 ICD-10: R73.9 Active 08/04/2015 Unknown Generalized abdominal pain ICD-9: 789.07 ICD-10: R10.84 Active 08/02/2015 Unknown Other cholelithiasis without obstruction ICD-9: 574.20 ICD-10: K80.80 Active 08/02/2015 Unknown Acute laryngopharyngitis ICD-9: 465.0 ICD-10: J06.0 Active 06/16/2015 Unknown Acute recurrent maxillary sinusitis ICD-9: 461.0 ICD-10: J01.01 Active 06/16/2015 Unknown Gastro-esophageal reflux disease without esophagitis ICD-9: 530.81 ICD-10: K21.9 Active 06/16/2015 Unknown Other specified diseases of inner ear, bilateral ICD-9: 386.8 ICD-10: H83.8X3 Active 06/16/2015 Unknown Diabetes Unknown Active 03/03/2015 Unknown Hypertension Unknown Active 03/03/2015 Unknown Hypothryroidism Unknown Active 03/03/2015 Unknown DIABETES TYPE II ICD-9 : 250.00 Active 03/02/2015 Unknown ESSENTIAL HYPERTENSION ICD-9: 401.9 Active 03/02/2015 Unknown HYPOTHYROIDISM ICD-9: 244.9 Active 03/02/2015 Unknown Stage 3 chronic kidney disease due to type 2 diabetes mellitus ICD-9: 250.40 Active 03/02/2015 Unknown Problems Condition Codes Effective Dates Condition Status Essential (primary) hypertension ICD-9: 401.1 ICD-10: I10 06/20/2016 Active Mixed hyperlipidemia ICD-9: 272.2 ICD-10: E78.2 06/20/2016 Active Type 2 diabetes mellitus without complications ICD-9: 250.00 ICD-10: E11.9 03/02/2015 Active 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 ICD-10: E11.21 03/02/2015 Active Encounter for general adult medical examination with abnormal findings ICD-9: V70.0 ICD-10: Z00.01 01/26/2017 Active Generalized anxiety disorder ICD-9: 300.00 ICD-10: F41.1 06/20/2016 Active Pleurodynia ICD-9: 786.50 ICD-10: R07.81 12/21/2016 Active Low back pain ICD-9: 724.2 ICD-10: M54.5 12/15/2016 Active Urinary tract infection, site not specified ICD-9: 599.0 ICD-10: N39.0 12/15/2016 Active Other insomnia ICD-9: 327.09 ICD-10: G47.09 10/18/2016 Active Acute follicular conjunctivitis, bilateral ICD-9: 372.02 ICD-10: H10.013 05/30/2016 Active Cystocele, unspecified ICD-9: 618.01 ICD-10: N81.10 02/21/2016 Active Essential (primary) hypertension ICD-9: 401.9 ICD-10: I10 03/02/2015 Active Pain in right hip ICD- 9: 719.45 ICD-10: M25.551 02/21/2016 Active Pain in right knee ICD -9: 719.46 ICD-10: M25.561 02/21/2016 Active Second degree hemorrhoids ICD-9: 455.8 ICD-10: K64.1 02/21/2016 Active Sacroiliitis, not elsewhere classified ICD-9: 720.2 ICD-10: M46.1 11/15/2015 Active Unspecified inflammatory spondylopathy, sacral and sacrococcygeal region ICD-9: 720.9 ICD-10: M46.98 11/15/2015 Active Other specified hypothyroidism ICD-9: 244.9 ICD-10: E03.8 03/02/2015 Active Hyperglycemia, unspecified ICD-9: 790.29 ICD-10: R73.9 08/04/2015 Active Generalized abdominal pain ICD-9: 789.07 ICD-10: R10.84 08/02/2015 Active Other cholelithiasis without obstruction ICD-9: 574.20 ICD-10: K80.80 08/02/2015 Active Acute laryngopharyngitis ICD-9: 465.0 ICD-10: J06.0 06/16/2015 Active Acute recurrent maxillary sinusitis ICD-9: 461.0 ICD-10: J01.01 06/16/2015 Active Gastro-esophageal reflux disease without esophagitis ICD-9: 530.81 ICD-10: K21.9 06/16/2015 Active Other specified diseases of inner ear, bilateral ICD-9: 386.8 ICD-10: H83.8X3 06/16/2015 Active Diabetes Unknown 03/03/2015 Active Hypertension Unknown 03/03/2015 Active Hypothryroidism Unknown 03/03/2015 Active DIABETES TYPE II ICD-9 : 250.00 03/02/2015 Active ESSENTIAL HYPERTENSION ICD-9: 401.9 03/02/2015 Active HYPOTHYROIDISM ICD-9: 244.9 03/02/2015 Active Stage 3 chronic kidney disease due to type 2 diabetes mellitus ICD-9: 250.40 03/02/2015 Active Medications Medication Codes Instructions Start Date Stop Date Status Fill Instructions Basaglpradeep KwikPen 100 unit/mL (3 mL) subcutaneous RxNorm: 4246604 34 Unit(s) SQ QPM - pt to increase dose by4 units as directed by physician for goal of 30 units 08/10/2017 08/13/2017 Active Basaglar KwikPen 100 unit/mL (3 mL) subcutaneous RxNorm: 7682479 30 Unit(s) SQ QPM - pt to increase dose by4 units as directed by physician for goal of 30 units 07/26/2017 07/29/2017 Inactive Basaglar KwikPen 100 unit/mL (3 mL) subcutaneous RxNorm: 9557755 30 Unit(s) SQ QPM - pt to increase dose by4 units as directed by physician for goal of 30 units 07/19/2017 07/22/2017 Inactive metoprolol succinate ER 50 mg tablet,extended release 24 hr RxNorm: 141220 TAKE 1 TABLET BY MOUTH EVERY DAY 07/11/201708/2018 Active felodipine ER 10 mg tablet,extended release 24 hr RxNorm: 715924 TAKE 1 TABLET BY MOUTH EVERY DAY 07/10/2017 04/05/2018 Active Basaglar KwikPen 100 unit/mL (3 mL) subcutaneous RxNorm: 4139381 14 Unit(s) SQ QPM 07/10/2017 07/13/2017 Inactive levothyroxine 50 mcg tablet RxNorm: 267457 TAKE 1 TABLET BY MOUTH DAILY 06/29/2017 09/26/2017 Active simvastatin 40 mg tablet RxNorm: 685291 TAKE 1 TABLET BY MOUTH EVERY DAY 06/19/2017 06/13/2018 Active Victoza 2-Dereck 0.6 mg/0.1 mL (18 mg/3 mL) subcutaneous pen injector RxNorm: 397281 INJECT 1.8 MILLIGRAM SUBCUTANEOUSLY DAILY 06/15/2017 12/11/2017 Active Basaglar KwikPen 100 unit/mL (3 mL) subcutaneous RxNorm: 3804608 10 Unit(s) SQ QPM 05/31/2017 05/30/2017 Inactive Basaglar KwikPen 100 unit/mL (3 mL) subcutaneous RxNorm: 6880214 10 Unit(s) SQ QPM 05/31/2017 07/09/2017 Inactive Pen Needle 32 gauge x 5/32" RxNorm: USE WITH INSULIN INJECTIONS WEEKLY 02/28/2017 11/24/2017 Active Victoza 2-Dereck 0.6 mg/0.1 mL (18 mg/3 mL) subcutaneous pen injector RxNorm: 730635 1.8 Milligram(s) SQ daily 02/09/201706/14 Inactive quanity sufficient for 30 day supply- hold for refill escitalopram 10 mg tablet RxNorm: 797757 1 Tablet(s) PO QPM 01/19/2018 Active sulfamethoxazole 800 mg-trimethoprim 160 mg tablet RxNorm: 428611 1 Tablet(s) PO BID 12/15/2016 12/21/2016 Inactive Eliquis 2.5 mg tablet RxNorm: 9097967 1 Tablet(s) PO BID 201610/17/2016 Inactive hydrocodone 10 mg-acetaminophen 325 mg tablet RxNorm: 810773 1 Tablet(s) PO Q4H as needed for pain 07/25/2016 08/08/2016 Inactive tramadol 50 mg tablet RxNorm: 097443 1-2 Tablet(s) PO Q6 as needed for pain 07/19/2016 08/09/2016 Inactive Pen Needle 32 gauge x 5/32" RxNorm: USE WITH INSULIN INJECTIONS WEEKLY 07/01/2016 02/27/2017 Inactive allopurinol 100 mg tablet RxNorm: 785759 1 Tablet(s) PO BID 06/15/2017 Inactive hydrochlorothiazide 12.5 mg tablet RxNorm: 286607 1 Tablet(s) PO 3 x week 06/21/2016 06/15/2017 Inactive glipizide 10 mg tablet RxNorm: 908061 1 Tablet(s) PO BID 201505/30/2017 Inactive felodipine ER 10 mg tablet,extended release 24 hr RxNorm: 452608 1 Tablet(s) PO daily 06/21/2016 06/15/2017 Inactive levothyroxine 50 mcg tablet RxNorm: 052978 1 Tablet(s) PO daily 06/21/2016 06/15/2017 Inactive simvastatin 40 mg tablet RxNorm: 541856 1 Tablet(s) PO daily TAKE 1 TABLET BY MOUTH EVERY DAY 06/21/2016 06/15/2017 Inactive Victoza 2-Dereck 0.6 mg/0.1 mL (18 mg/3 mL) subcutaneous pen injector RxNorm: 724426 1.2 Milligram(s) SQ daily 06/21/201602/08 Inactive quanity sufficient for 30 day supply/DC byetta valsartan 320 mg tablet RxNorm: 820444 1 Tablet(s) PO daily 10/17/2016 Inactive metoprolol succinate ER 50 mg tablet,extended release 24 hr RxNorm: 545645 1 Tablet(s) PO daily 06/21/2016 06/15/2017 Inactive escitalopram 10 mg tablet RxNorm: 138323 1 Tablet(s) PO QPM 11/01/2016 Inactive polymyxin B sulfate 10,000 unit-trimethoprim 1 mg/mL eye drops RxNorm: 937394 2 Drop(s) OPH QID 05/31/2016 06/09/2016 Inactive simvastatin 40 mg tablet RxNorm: 343057 TAKE 1 TABLET BY MOUTH EVERY DAY 03/14/2016 06/20/2016 Inactive hydrochlorothiazide 12.5 mg tablet RxNorm: 455651 1 Tablet(s) PO 3 x week 02/22/2016 06/20/2016 Inactive Anusol-HC 25 mg rectal suppository RxNorm: 6963531 1 Suppository RTL BID as needed hemorrhoid 02/22/2016 04/21/2016 Inactive valsartan 320 mg tablet RxNorm: 369239 1 Tablet(s) PO daily 02/201606/20/2016 Inactive Victoza 2-Dereck 0.6 mg/0.1 mL (18 mg/3 mL) subcutaneous pen injector RxNorm: 780818 1.2 Milligram(s) SQ daily 09/29/201506/20 Inactive quanity sufficient for 30 day supply/DC byetta Victoza 2-Dereck 0.6 mg/0.1 mL (18 mg/3 mL) subcutaneous pen injector RxNorm: 190133 1.2 Milligram(s) SQ daily 08/18/201509/27 Inactive quanity sufficient for 30 day supply/DC byetta glipizide 10 mg tablet RxNorm: 386703 1 Tablet(s) PO BID 201506/20/2016 Inactive levothyroxine 50 mcg tablet RxNorm: 595781 1 Tablet(s) PO daily 07/28/2015 06/20/2016 Inactive felodipine ER 10 mg tablet,extended release 24 hr RxNorm: 617995 1 Tablet(s) PO daily 07/28/2015 06/20/2016 Inactive metoprolol succinate ER 50 mg tablet,extended release 24 hr RxNorm: 994623 1 Tablet(s) PO daily 07/28/2015 06/20/2016 Inactive Victoza 2-Dereck 0.6 mg/0.1 mL (18 mg/3 mL) subcutaneous pen injector RxNorm: 991145 0.6 Milligram(s) SQ daily 07/13/201508/17 Inactive quanity sufficient for 30 day supply/DC byetta Victoza 2-Dereck 0.6 mg/0.1 mL (18 mg/3 mL) subcutaneous pen injector RxNorm: 239446 0.6 Milligram(s) SQ daily 07/13/201507/12 Inactive quanity sufficient for 30 day supply amoxicillin 500 mg capsule RxNorm: 802541 1 Capsule(s) PO TID 07/06/2015 07/15/2015 Inactive [place]etta 5 mcg/dose (250 mcg/mL)1.2 mL subcutaneous pen injector RxNorm: 378115 5 Microgram(s) SQ BID 07/06/20152015 Inactive amoxicillin 500 mg capsule RxNorm: 087220 1 Capsule(s) PO TID 06/17/2015 06/26/2015 Inactive prednisone 20 mg tablet RxNorm: 496547 1 Tablet(s) PO daily 06/21/2015 Inactive Pen Needle 32 gauge x 5/32" RxNorm: 1 injection Miscellaneous QW 06/04/2015 12/30/2015 Inactive Bydureon 2 mg/0.65 mL subcutaneous pen injector RxNorm: 9314742 2 Milligram(s) SQ BID 06/04/2015 07/05/2015 Inactive simvastatin 40 mg tablet RxNorm: 120971 1 Tablet(s) PO daily 02/25/2016 Inactive Vitamin B-12 1,000 mcg tablet RxNorm: 166444 1 Tablet(s) PO daily No Start Date Active Combivent 18 mcg-103 mcg/actuation aerosol inhaler RxNorm: 790754 1 INH daily as needed No Start Date Active magnesium oxide 400 mg tablet RxNorm: 205496 1 Tablet(s) PO daily No Start Date Active ferrous sulfate 325 mg (65 mg iron) tablet RxNorm: 236461 1 Tablet(s) PO daily No Start Date Active [place] 3 capsule RxNorm : Capsule(s) PO No Start Date Active Vitamin C 500 mg tablet RxNorm: 203668 1 Tablet(s) PO daily No Start Date Active Vitamin D3 5,000 unit tablet RxNorm: 373274 1 Tablet(s) PO daily No Start Date Active Aspirin Low Dose 81 mg tablet,delayed release RxNorm: 200175 Tablet(s) PO daily No Start Date Active Fish Oil 300 mg-1,000 mg capsule RxNorm: 359930 1 Capsule(s) PO daily No Start Date Active Senior-Jay oral RxNorm: oral No Start Date Active Eliquis 2.5 mg tablet RxNorm: 5941058 1 Tablet(s) PO BID No Start Date 07/31/2016 Inactive simvastatin 40 mg tablet RxNorm: 042409 1 Tablet(s) PO daily No Start Date 03/02/2015 Inactive Vitamin D3 1,000 unit tablet RxNorm: 254273 1 Tablet(s) PO daily No Start Date 08/17/2016 Inactive hydrochlorothiazide 12.5 mg tablet RxNorm: 900389 1 Tablet(s) PO daily No Start Date 02/21/2016 Inactive metoprolol succinate ER 50 mg tablet,extended release 24 hr RxNorm: 017809 1 Tablet(s) PO daily No Start Date 2015 Inactive Vitamin C RxNorm: PO No Start Date 2014 Inactive allopurinol 100 mg tablet RxNorm: 198107 1 Tablet(s) PO BID No Start Date 06/20/2016 Inactive metformin 1,000 mg tablet RxNorm: 335376 1 Tablet(s) PO BID No Start Date 06/03/2015 Inactive valsartan 320 mg tablet RxNorm: 549511 1 Tablet(s) PO daily No Start Date 10/17/2016 Inactive magnesium 250 mg tablet RxNorm: 1 Tablet(s) PO daily No Start Date 07/19/2016 Inactive Vitamin D3 5,000 unit tablet RxNorm: 977905 1 Tablet(s) PO daily No Start Date 07/19/2016 Inactive allopurinol 100 mg tablet RxNorm: 774143 1 Tablet(s) PO daily No Start Date 07/27/2015 Inactive levothyroxine 50 mcg tablet RxNorm: 118766 1 Tablet(s) PO daily No Start Date 07/27/2015 Inactive glipizide 10 mg tablet RxNorm: 472022 1 Tablet(s) PO BID No Start Date 07/27/2015 Inactive felodipine ER 10 mg tablet,extended release 24 hr RxNorm: 886448 1 Tablet(s) PO daily No Start Date 07/27/2015 Inactive Medication Administered No Medication Administered data Immunizations No Immunization data Assessments Condition Codes Effective Dates Mixed hyperlipidemia ICD-10: E78.2 ICD-9: 272.2 07/19/2017 Type 2 diabetes mellitus without complications ICD-10: E11.9 ICD-9: 250.00 07/19/2017 Essential (primary) hypertension ICD-10: I10 ICD-9: 401.1 07/19/2017 Type 2 diabetes mellitus with diabetic nephropathy ICD-10: E11.21 ICD-9: 250.40 05/30/2017 Encounter for general adult medical examination with abnormal findings ICD-10: Z00.01 ICD-9: V70.0 01/26/2017 Generalized anxiety disorder ICD-10: F41.1 ICD-9: 300.00 01/25/2017 Pleurodynia ICD-10: R07.81 ICD-9: 786.50 12/21/2016 Low back pain ICD-10: M54.5 ICD-9: 724.2 12/15/2016 Urinary tract infection, site not specified ICD-10: N39.0 ICD-9: 599.0 12/15/2016 Other insomnia ICD-10: G47.09 ICD-9: 327.09 10/18/2016 Acute follicular conjunctivitis, bilateral ICD-10: H10.013 ICD-9: 372.02 05/31/2016 Cystocele, unspecified ICD-10: N81.10 ICD-9: 618.01 02/22/2016 Pain in right hip ICD-10: M25.551 ICD-9: 719.45 02/22/2016 Essential (primary) hypertension ICD-10: I10 ICD-9: 401.9 02/22/2016 Pain in right knee ICD-10: M25.561 ICD-9: 719.46 02/22/2016 Second degree hemorrhoids ICD-10: K64.1 ICD-9: 455.8 02/22/2016 Sacroiliitis, not elsewhere classified ICD-10: M46.1 ICD-9: 720.2 11/16/2015 Unspecified inflammatory spondylopathy, sacral and sacrococcygeal region ICD-10: M46.98 ICD-9: 720.9 11/16/2015 Other specified hypothyroidism ICD-10: E03.8 ICD-9: 244.9 09/29/2015 Hyperglycemia, unspecified ICD-10: R73.9 ICD-9: 790.29 08/05/2015 Generalized abdominal pain ICD-10: R10.84 ICD-9: 789.07 08/03/2015 Other cholelithiasis without obstruction ICD-10: K80.80 ICD-9: 574.20 08/03/2015 Acute laryngopharyngitis ICD-10: J06.0 ICD-9: 465.0 06/17/2015 Gastro-esophageal reflux disease without esophagitis ICD-10 : K21.9 ICD-9: 530.81 06/17/2015 Other specified diseases of inner ear, bilateral ICD-10: H83.8X3 ICD-9: 386.8 06/17/2015 Acute recurrent maxillary sinusitis ICD-10: J01.01 ICD-9: 461.0 06/17/2015 HYPOTHYROIDISM ICD-9: 244.9 03/03/2015 Stage 3 chronic kidney disease due to type 2 diabetes mellitus ICD-9: 250.40 03/03/2015 DIABETES TYPE II ICD-9: 250.00 2014 ESSENTIAL HYPERTENSION ICD-9: 401.9 03/03 Reason For Visit Reason For Visit Effective Dates Notes diabetes mellitus 07/19/2017 diabetes mellitus 05/30/2017 Annual Medicare Wellness Exam 01/26/2017 diabetes mellitus 01/25/2017 joint complaint 12/21/2016 Hospital Follow Up 12/15/2016 depression 10/18/2016 depression 08/09/2016 depression 06/21/2016 sore throat 05/31/2016 hypertension 02/22/2016 hypertension 11/16/2015 Hospital Follow Up 09/29/2015 abdominal pain 08/03/2015 hypertension 07/06/2015 cough 06/17/2015 hypertension 06/04/2015 hypertension 03/03/2015 Results Observation Observation Code Item Item Code Result Date Metabolic Ord15 NA 139 mEq/L 05/30/2017 Metabolic Ord15 K 5.0 mEq/L 05/30/2017 Metabolic Ord15 CL 102 mEq/L 05/30/2017 Metabolic Ord15 CO2 27.0 mEq/L 05/30/2017 Metabolic Ord15 GLUCOSE 221 mg/dL 05/30/2017 Metabolic Ord15 BUN 39 mg/dL 05/30/2017 Metabolic Ord15 Creat 1.3 mg/dL 05/30/2017 Metabolic Ord15 B/C Ratio 30.5 Ratio 05/30/2017 Metabolic Ord15 eGFR 43 ml/min/1.73m2 05/30/2017 Metabolic Ord15 Osmo 294 mOsmo 05/30/2017 Metabolic Ord15 ANION GAP 15 05/30/2017 Metabolic Ord15 CALCIUM 9.4 mg/dL 05/30/2017 Microalbumin Krj732 MicroAlb 97.5 mg/dL 05/30/2017 %Hba1C Lna597 % HbA1c 96418-1 7.8 % 05/30/2017 %Hba1C Jol571 Gluc Ave 177 mg/dL 05/30/2017 %Hba1C Rjl298 % HbA1c 95663-0 7.8 % 08/06/2015 %Hba1C Ocw994 Gluc Ave 177 mg/dL 08/06/2015 Comp Metabolic Puo590 NA 135 mEq/L 08/03/2015 Comp Metabolic Hlt390 K 4.7 mEq/L 08/03/2015 Comp Metabolic Vfh617 CL 100 mEq/L 08/03/2015 Comp Metabolic Qdg577 CO2 24.0 mEq/L 08/03/2015 Comp Metabolic Cmx593 ANION GAP 16 08/03/2015 Comp Metabolic Xeg684 GLUCOSE 214 mg/dL 08/03/2015 Comp Metabolic Orb124 Creat 1.5 mg/dL 08/03/2015 Comp Metabolic Ykv080 eGFR 37 ml/min/1.73m2 08/03/2015 Comp Metabolic Usq118 BUN 46 mg/dL 08/03/2015 Comp Metabolic Qez046 B/C Ratio 31.3 Ratio 08/03/2015 Comp Metabolic Kby383 CALCIUM 9.6 mg/dL 08/03/2015 Comp Metabolic Edy768 ALK PHOS 51 U/L 08/03/2015 Comp Metabolic Xqp252 AST(SGOT) 25 U/L 08/03/2015 Comp Metabolic Wrs719 ALT(SGPT) 24 U/L 08/03/2015 Comp Metabolic Fzv269 BILI T 0.3 mg/dL 08/03/2015 Comp Metabolic Llm369 ALBUMIN 4.3 g/dL 08/03/2015 Comp Metabolic Aal288 TPRO 7.1 g/dL 08/03/2015 Comp Metabolic Yrp801 GLOB 2.8 g/dL 08/03/2015 Comp Metabolic Ukx739 A/G Ratio 1.5 Ratio 08/03/2015 Comp Metabolic Tmn424 Osmo 288 mOsmo 08/03/2015 Cbc With Differential Ord2 WBC 10.12 K/ul 08/03/2015 Cbc With Differential Ord2 RBC 3.89 M/ul 08/03/2015 Cbc With Differential Ord2 HGB 11.9 g/dl 08/03/2015 Cbc With Differential Ord2 HCT 35.6 % 08/03/2015 Cbc With Differential Ord2 Neut% 62.7 % 08/03/2015 Cbc With Differential Ord2 Lymph% 25.5 % 08/03/2015 Cbc With Differential Ord2 MCV 91.5 fl 08/03/2015 Cbc With Differential Ord2 [place]% 8.7 % 08/03/2015 Cbc With Differential Ord2 MCH 30.6 pg 08/03/2015 Cbc With Differential Ord2 MCHC 33.4 pg 08/03/2015 Cbc With Differential Ord2 Eos% 2.8 % 08/03/2015 Cbc With Differential Ord2 PLT 215 K/ul 08/03/2015 Cbc With Differential Ord2 Baso% 0.3 % 08/03/2015 Cbc With Differential Ord2 RDW 13.9 % 08/03/2015 Cbc With Differential Ord2 Neut ABS# 6.35 K/ul 08/03/2015 Cbc With Differential Ord2 Lymph ABS# 2.58 K/ul 08/03/2015 Cbc With Differential Ord2 [place] ABS# 0.9 K/ul 08/03/2015 Cbc With Differential Ord2 Eos ABS# 0.3 K/ul 08/03/2015 Cbc With Differential Ord2 Baso ABS# 0.0 K/ul 08/03/2015 Cbc With Differential Ord2 New Analyzer Notice Please note new ref ranges starting 07-15-2015 due to implemntation of new five part differential hematolgy analyzer. 08/03/2015 Amylase Ord34 AMYLASE 60 U/L 08/03/2015 Lipase Dfr847 LIPASE 64 U/L 08/03/2015 Review of Systems System Result Effective Dates Constitutional No recent illness 2017 Constitutional No chills 07/19/2017 Constitutional fatigue 07/19/2017 Constitutional No fever 07/19/2017 Eyes No vision change 07/19/2017 Ears/Nose/Throat/Neck No dizziness 2017 Ears/Nose/Throat/Neck No dysphagia 2017 Ears/Nose/Throat/Neck No headache 2017 Ears/Nose/Throat/Neck No hearing loss Ears/Nose/Throat/Neck No hoarseness 07/19 Cardiovascular No chest pain/pressure Respiratory No chest tightness 2017 Respiratory No cigarette smoking 2017 Respiratory No cough 07/19/2017 Respiratory No dyspnea 07/19/2017 Respiratory No pedal edema 07/19/2017 Respiratory No snoring 07/19/2017 Respiratory No wheezing 07/19/2017 Gastrointestinal No abdominal pain 2017 Gastrointestinal No constipation 2017 Gastrointestinal No diarrhea 07/19/2017 Gastrointestinal nausea 07/19/2017 Genitourinary/Nephrology No dysuria 07/19 Genitourinary/Nephrology No hernia 2017 Genitourinary/Nephrology urinary frequency 07/19/2017 Musculoskeletal No bone pain 07/19/2017 Musculoskeletal joint complaint 2017 Musculoskeletal No myalgias 07/19/2017 Dermatologic No rash 07/19/2017 Dermatologic actinic keratosis 2017 Neurologic No dizziness 07/19/2017 Neurologic No hearing loss 07/19/2017 Psychiatric No anxiety 07/19/2017 Psychiatric depression 07/19/2017 Hematologic/Lymphatic abnormal ecchymoses 07/19/2017 Constitutional No recent illness 2016 Constitutional No chills 05/30/2017 Constitutional fatigue 05/30/2017 Constitutional No fever 05/30/2017 Eyes No vision change 05/30/2017 Ears/Nose/Throat/Neck No dizziness 2016 Ears/Nose/Throat/Neck No dysphagia 2016 Ears/Nose/Throat/Neck No headache 2016 Ears/Nose/Throat/Neck No hearing loss Ears/Nose/Throat/Neck No hoarseness 05/30 Cardiovascular No chest pain/pressure Respiratory No chest tightness 2016 Respiratory No cigarette smoking 2016 Respiratory No cough 05/30/2017 Respiratory No dyspnea 05/30/2017 Respiratory No pedal edema 05/30/2017 Respiratory No snoring 05/30/2017 Respiratory No wheezing 05/30/2017 Gastrointestinal No abdominal pain 2016 Gastrointestinal No constipation 2016 Gastrointestinal No diarrhea 05/30/2017 Gastrointestinal nausea 05/30/2017 Genitourinary/Nephrology No dysuria 05/30 Genitourinary/Nephrology No hernia 2016 Genitourinary/Nephrology urinary frequency 05/30/2017 Musculoskeletal No bone pain 05/30/2017 Musculoskeletal joint complaint 2016 Musculoskeletal No myalgias 05/30/2017 Dermatologic No rash 05/30/2017 Dermatologic actinic keratosis 2016 Neurologic No dizziness 05/30/2017 Neurologic No hearing loss 05/30/2017 Psychiatric No anxiety 05/30/2017 Psychiatric depression 05/30/2017 Constitutional No recent illness 2016 Constitutional No chills 01/26/2017 Constitutional fatigue 01/26/2017 Constitutional No fever 01/26/2017 Eyes No vision change 01/26/2017 Cardiovascular No chest pain/pressure Respiratory No cough 01/26/2017 Respiratory No dyspnea 01/26/2017 Gastrointestinal No abdominal pain 2016 Ears/Nose/Throat/Neck No nasal discharge 01/26/2017 Cardiovascular No dyspnea 01/26/2017 Neurologic No alteration of consciousness 01/26/2017 Neurologic No mental status change 2016 Constitutional No chills 01/25/2017 Constitutional fatigue 01/25/2017 Constitutional No fever 01/25/2017 Eyes No vision change 01/25/2017 Ears/Nose/Throat/Neck No dizziness 2016 Ears/Nose/Throat/Neck No dysphagia 2016 Ears/Nose/Throat/Neck No headache 2016 Ears/Nose/Throat/Neck No hearing loss Ears/Nose/Throat/Neck No hoarseness 01/25 Cardiovascular No chest pain/pressure Respiratory No chest tightness 2016 Respiratory No cigarette smoking 2016 Respiratory No cough 01/25/2017 Respiratory No dyspnea 01/25/2017 Respiratory No pedal edema 01/25/2017 Respiratory No snoring 01/25/2017 Respiratory No wheezing 01/25/2017 Gastrointestinal No abdominal pain 2016 Gastrointestinal No constipation 2016 Gastrointestinal No diarrhea 01/25/2017 Gastrointestinal nausea 01/25/2017 Genitourinary/Nephrology No dysuria 01/25 Genitourinary/Nephrology No hernia 2016 Musculoskeletal No bone pain 01/25/2017 Musculoskeletal joint complaint 2016 Musculoskeletal No myalgias 01/25/2017 Dermatologic No rash 01/25/2017 Dermatologic actinic keratosis 2016 Neurologic No dizziness 01/25/2017 Neurologic No hearing loss 01/25/2017 Psychiatric No anxiety 01/25/2017 Psychiatric depression 01/25/2017 Constitutional No recent illness 2016 Genitourinary/Nephrology urinary frequency 01/25/2017 Constitutional No recent illness 2016 Constitutional No chills 12/21/2016 Constitutional No diaphoresis 12/21/2016 Constitutional No fever 12/21/2016 Eyes No eye erythema 12/21/2016 Ears/Nose/Throat/Neck No nasal discharge 12/21/2016 Cardiovascular No chest pain/pressure Cardiovascular No dyspnea 12/21/2016 Respiratory No cough 12/21/2016 Respiratory No chest congestion 2016 Gastrointestinal No abdominal pain 2016 Musculoskeletal joint complaint 2016 Dermatologic No rash 12/21/2016 Neurologic No alteration of consciousness 12/21/2016 Neurologic No mental status change 2016 Constitutional No chills 12/15/2016 Constitutional No fatigue 12/15/2016 Constitutional No fever 12/15/2016 Eyes No vision change 12/15/2016 Ears/Nose/Throat/Neck No dizziness 2016 Ears/Nose/Throat/Neck No dysphagia 2016 Ears/Nose/Throat/Neck No headache 2016 Ears/Nose/Throat/Neck No hearing loss Ears/Nose/Throat/Neck No hoarseness 12/15 Cardiovascular No chest pain/pressure Respiratory No chest tightness 2016 Respiratory No cigarette smoking 2016 Respiratory No cough 12/15/2016 Respiratory No dyspnea 12/15/2016 Respiratory No pedal edema 12/15/2016 Respiratory No snoring 12/15/2016 Respiratory No wheezing 12/15/2016 Gastrointestinal No abdominal pain 2016 Gastrointestinal No constipation 2016 Gastrointestinal No diarrhea 12/15/2016 Genitourinary/Nephrology No dysuria 12/15 Genitourinary/Nephrology No hernia 2016 Musculoskeletal No bone pain 12/15/2016 Musculoskeletal joint complaint 2016 Musculoskeletal No myalgias 12/15/2016 Dermatologic No rash 12/15/2016 Dermatologic actinic keratosis 2016 Neurologic No dizziness 12/15/2016 Neurologic No hearing loss 12/15/2016 Psychiatric No anxiety 12/15/2016 Psychiatric depression 12/15/2016 Hematologic/Lymphatic anemia 12/15/2016 Constitutional No chills 10/18/2016 Constitutional No fatigue 10/18/2016 Constitutional No fever 10/18/2016 Eyes No vision change 10/18/2016 Ears/Nose/Throat/Neck No dizziness 2016 Ears/Nose/Throat/Neck No dysphagia 2016 Ears/Nose/Throat/Neck No headache 2016 Ears/Nose/Throat/Neck No hearing loss Ears/Nose/Throat/Neck No hoarseness 10/18 Cardiovascular No chest pain/pressure Respiratory No chest tightness 2016 Respiratory No cigarette smoking 2016 Respiratory No cough 10/18/2016 Respiratory No dyspnea 10/18/2016 Respiratory No pedal edema 10/18/2016 Respiratory No snoring 10/18/2016 Respiratory No wheezing 10/18/2016 Gastrointestinal No abdominal pain 2016 Gastrointestinal No constipation 2016 Gastrointestinal No diarrhea 10/18/2016 Gastrointestinal nausea 10/18/2016 Genitourinary/Nephrology No dysuria 10/18 Genitourinary/Nephrology No hernia 2016 Musculoskeletal No bone pain 10/18/2016 Musculoskeletal joint complaint 2016 Musculoskeletal No myalgias 10/18/2016 Dermatologic No rash 10/18/2016 Dermatologic actinic keratosis 2016 Neurologic No dizziness 10/18/2016 Neurologic No hearing loss 10/18/2016 Psychiatric No anxiety 10/18/2016 Psychiatric depression 10/18/2016 Constitutional No chills 08/09/2016 Constitutional No fatigue 08/09/2016 Constitutional No fever 08/09/2016 Eyes No vision change 08/09/2016 Ears/Nose/Throat/Neck No dizziness 2016 Ears/Nose/Throat/Neck No dysphagia 2016 Ears/Nose/Throat/Neck No headache 2016 Ears/Nose/Throat/Neck No hearing loss 12/2016 Ears/Nose/Throat/Neck No hoarseness 08/09 Cardiovascular No chest pain/pressure 12/2016 Respiratory No chest tightness 2016 Respiratory No cigarette smoking 2016 Respiratory No cough 08/09/2016 Respiratory No dyspnea 08/09/2016 Respiratory No pedal edema 08/09/2016 Respiratory No snoring 08/09/2016 Respiratory No wheezing 08/09/2016 Gastrointestinal No abdominal pain 2016 Gastrointestinal No constipation 2016 Gastrointestinal No diarrhea 08/09/2016 Genitourinary/Nephrology No dysuria 08/09 Genitourinary/Nephrology No hernia 2016 Musculoskeletal No bone pain 08/09/2016 Musculoskeletal joint complaint 2016 Musculoskeletal No myalgias 08/09/2016 Dermatologic No rash 08/09/2016 Dermatologic actinic keratosis 2016 Neurologic No dizziness 08/09/2016 Neurologic No hearing loss 08/09/2016 Psychiatric No anxiety 08/09/2016 Psychiatric depression 08/09/2016 Hematologic/Lymphatic anemia 08/09/2016 Constitutional No chills 06/21/2016 Constitutional No fatigue 06/21/2016 Constitutional No fever 06/21/2016 Eyes No vision change 06/21/2016 Ears/Nose/Throat/Neck No dizziness 2015 Ears/Nose/Throat/Neck No dysphagia 2015 Ears/Nose/Throat/Neck No headache 2015 Ears/Nose/Throat/Neck No hearing loss Ears/Nose/Throat/Neck No hoarseness 06/21 Cardiovascular No chest pain/pressure Gastrointestinal No abdominal pain 2015 Gastrointestinal No constipation 2015 Gastrointestinal No diarrhea 06/21/2016 Genitourinary/Nephrology No dysuria 06/21 Genitourinary/Nephrology No hernia 2015 Musculoskeletal No bone pain 06/21/2016 Musculoskeletal joint complaint 2015 Musculoskeletal No myalgias 06/21/2016 Dermatologic No rash 06/21/2016 Dermatologic actinic keratosis 2015 Neurologic No dizziness 06/21/2016 Neurologic No hearing loss 06/21/2016 Psychiatric No anxiety 06/21/2016 Psychiatric depression 06/21/2016 Respiratory No chest tightness 2015 Respiratory No cigarette smoking 2015 Respiratory No cough 06/21/2016 Respiratory No dyspnea 06/21/2016 Respiratory No pedal edema 06/21/2016 Respiratory No snoring 06/21/2016 Respiratory No wheezing 06/21/2016 Gastrointestinal nausea 06/21/2016 Constitutional No recent illness 2015 Constitutional No anorexia 05/31/2016 Constitutional No diaphoresis 05/31/2016 Constitutional No chills 05/31/2016 Constitutional No night sweats 2015 Constitutional No fatigue 05/31/2016 Constitutional No fever 05/31/2016 Constitutional No insomnia 05/31/2016 Constitutional No malaise 05/31/2016 Constitutional No weight loss 05/31/2016 Constitutional No weight gain 05/31/2016 Eyes eye discharge 05/31/2016 Eyes eye erythema 05/31/2016 Ears/Nose/Throat/Neck No dizziness 2015 Ears/Nose/Throat/Neck No headache 2015 Ears/Nose/Throat/Neck No nasal discharge 05/31/2016 Ears/Nose/Throat/Neck nasal allergies Cardiovascular No chest pain/pressure Respiratory cough 05/31/2016 Gastrointestinal No abdominal pain 2015 Gastrointestinal No constipation 2015 Gastrointestinal No diarrhea 05/31/2016 Genitourinary/Nephrology No dysuria 05/31 Musculoskeletal joint complaint 2015 Dermatologic No rash 05/31/2016 Dermatologic No sores 05/31/2016 Constitutional No chills 02/22/2016 Constitutional No fatigue 02/22/2016 Constitutional No fever 02/22/2016 Eyes No vision change 02/22/2016 Ears/Nose/Throat/Neck No dizziness 2015 Ears/Nose/Throat/Neck No dysphagia 2015 Ears/Nose/Throat/Neck No headache 2015 Ears/Nose/Throat/Neck No hearing loss Ears/Nose/Throat/Neck No hoarseness 02/21 Cardiovascular No chest pain/pressure Respiratory No chest tightness 2015 Respiratory No cigarette smoking 2015 Respiratory No cough 02/22/2016 Respiratory No dyspnea 02/22/2016 Respiratory No pedal edema 02/22/2016 Respiratory No snoring 02/22/2016 Respiratory No wheezing 02/22/2016 Gastrointestinal No abdominal pain 2015 Gastrointestinal No constipation 2015 Gastrointestinal No diarrhea 02/22/2016 Gastrointestinal nausea 02/22/2016 Musculoskeletal bone pain 02/22/2016 Musculoskeletal joint complaint 2015 Musculoskeletal No myalgias 02/22/2016 Dermatologic No rash 02/22/2016 Dermatologic actinic keratosis 2015 Neurologic No dizziness 02/22/2016 Neurologic No hearing loss 02/22/2016 Psychiatric No anxiety 02/22/2016 Psychiatric No depression 02/22/2016 Musculoskeletal stiffness 02/22/2016 Musculoskeletal arthralgia(s) 02/22/2016 Constitutional No chills 11/16/2015 Constitutional fatigue 11/16/2015 Constitutional No fever 11/16/2015 Eyes No vision change 11/16/2015 Ears/Nose/Throat/Neck No dizziness 2015 Ears/Nose/Throat/Neck No dysphagia 2015 Ears/Nose/Throat/Neck No headache 2015 Ears/Nose/Throat/Neck No hearing loss Ears/Nose/Throat/Neck No hoarseness 11/15 Cardiovascular No chest pain/pressure Respiratory No chest tightness 2015 Respiratory No cigarette smoking 2015 Respiratory No cough 11/16/2015 Respiratory No dyspnea 11/16/2015 Respiratory No pedal edema 11/16/2015 Respiratory No snoring 11/16/2015 Respiratory No wheezing 11/16/2015 Gastrointestinal No abdominal pain 2015 Gastrointestinal No constipation 2015 Gastrointestinal No diarrhea 11/16/2015 Gastrointestinal nausea 11/16/2015 Genitourinary/Nephrology No dysuria 11/15 Genitourinary/Nephrology No hernia 2015 Musculoskeletal No bone pain 11/16/2015 Musculoskeletal joint complaint 2015 Musculoskeletal No myalgias 11/16/2015 Dermatologic No rash 11/16/2015 Dermatologic actinic keratosis 2015 Neurologic No dizziness 11/16/2015 Neurologic No hearing loss 11/16/2015 Psychiatric No anxiety 11/16/2015 Psychiatric No depression 11/16/2015 Constitutional No recent illness 2015 Musculoskeletal stiffness 11/16/2015 Musculoskeletal back pain 11/16/2015 Musculoskeletal sciatica 11/16/2015 Constitutional No chills 09/29/2015 Constitutional No fatigue 09/29/2015 Constitutional No fever 09/29/2015 Eyes No vision change 09/29/2015 Ears/Nose/Throat/Neck No dizziness 2015 Ears/Nose/Throat/Neck No dysphagia 2015 Ears/Nose/Throat/Neck No headache 2015 Ears/Nose/Throat/Neck No hearing loss Ears/Nose/Throat/Neck No hoarseness 09/28 Cardiovascular No chest pain/pressure Gastrointestinal No abdominal pain 2015 Gastrointestinal No constipation 2015 Gastrointestinal No diarrhea 09/29/2015 Gastrointestinal nausea 09/29/2015 Genitourinary/Nephrology No dysuria 09/28 Genitourinary/Nephrology No hernia 2015 Musculoskeletal No bone pain 09/29/2015 Musculoskeletal No joint complaint 2015 Musculoskeletal No myalgias 09/29/2015 Dermatologic No rash 09/29/2015 Dermatologic actinic keratosis 2015 Neurologic No dizziness 09/29/2015 Neurologic No hearing loss 09/29/2015 Psychiatric No anxiety 09/29/2015 Psychiatric No depression 09/29/2015 Respiratory No chest tightness 2015 Respiratory No cigarette smoking 2015 Respiratory No cough 09/29/2015 Respiratory No dyspnea 09/29/2015 Respiratory No pedal edema 09/29/2015 Respiratory No snoring 09/29/2015 Respiratory No wheezing 09/29/2015 Constitutional No chills 08/03/2015 Constitutional No fatigue 08/03/2015 Constitutional No fever 08/03/2015 Eyes No vision change 08/03/2015 Cardiovascular No chest pain/pressure 07/2015 Respiratory dyspnea 08/03/2015 Respiratory passive smoking 08/03/2015 Gastrointestinal abdominal pain 2015 Gastrointestinal No constipation 2015 Gastrointestinal diarrhea 08/03/2015 Gastrointestinal nausea 08/03/2015 Genitourinary/Nephrology No dysuria 08/03 Musculoskeletal No joint complaint 2015 Dermatologic No rash 08/03/2015 Psychiatric No anxiety 08/03/2015 Psychiatric No depression 08/03/2015 Ears/Nose/Throat/Neck No nasal allergies 08/03/2015 Ears/Nose/Throat/Neck No nasal discharge 08/03/2015 Gastrointestinal dyspepsia 08/03/2015 Genitourinary/Nephrology No flank pain Neurologic No alteration of consciousness 08/03/2015 Neurologic No mental status change 2015 Constitutional No chills 07/06/2015 Constitutional No fatigue 07/06/2015 Constitutional No fever 07/06/2015 Eyes No vision change 07/06/2015 Ears/Nose/Throat/Neck No dizziness 2015 Ears/Nose/Throat/Neck No dysphagia 2015 Ears/Nose/Throat/Neck No headache 2015 Ears/Nose/Throat/Neck No hearing loss 10/2015 Ears/Nose/Throat/Neck No hoarseness 07/06 Cardiovascular No chest pain/pressure 10/2015 Respiratory dyspnea 07/06/2015 Respiratory passive smoking 07/06/2015 Gastrointestinal No abdominal pain 2015 Gastrointestinal No constipation 2015 Gastrointestinal No diarrhea 07/06/2015 Genitourinary/Nephrology No dysuria 07/06 Genitourinary/Nephrology No hernia 2015 Musculoskeletal No bone pain 07/06/2015 Musculoskeletal No joint complaint 2015 Musculoskeletal No myalgias 07/06/2015 Dermatologic No rash 07/06/2015 Dermatologic actinic keratosis 2015 Neurologic No dizziness 07/06/2015 Neurologic No hearing loss 07/06/2015 Psychiatric No anxiety 07/06/2015 Psychiatric No depression 07/06/2015 Gastrointestinal nausea 07/06/2015 Constitutional No chills 06/17/2015 Constitutional No fatigue 06/17/2015 Constitutional fever 06/17/2015 Eyes No vision change 06/17/2015 Ears/Nose/Throat/Neck dizziness 2014 Ears/Nose/Throat/Neck No headache 2014 Cardiovascular No chest pain/pressure Respiratory dyspnea 06/17/2015 Respiratory passive smoking 06/17/2015 Gastrointestinal No abdominal pain 2014 Gastrointestinal No constipation 2014 Gastrointestinal No diarrhea 06/17/2015 Neurologic dizziness 06/17/2015 Psychiatric No anxiety 06/17/2015 Psychiatric No depression 06/17/2015 Constitutional recent illness 06/17/2015 Ears/Nose/Throat/Neck nasal allergies Ears/Nose/Throat/Neck nasal discharge Ears/Nose/Throat/Neck sinus congestion Ears/Nose/Throat/Neck sore throat 2014 Ears/Nose/Throat/Neck otalgia 06/17/2015 Respiratory cough 06/17/2015 Gastrointestinal No nausea 06/17/2015 Gastrointestinal No vomiting 06/17/2015 Gastrointestinal gastroesophageal reflux 06/17/2015 Neurologic No alteration of consciousness 06/17/2015 Neurologic No mental status change 2014 Constitutional No chills 06/04/2015 Constitutional No fatigue 06/04/2015 Constitutional No fever 06/04/2015 Eyes No vision change 06/04/2015 Ears/Nose/Throat/Neck No dizziness 2014 Ears/Nose/Throat/Neck No dysphagia 2014 Ears/Nose/Throat/Neck No headache 2014 Ears/Nose/Throat/Neck No hearing loss 08/2014 Ears/Nose/Throat/Neck No hoarseness 06/04 Cardiovascular No chest pain/pressure 08/2014 Respiratory dyspnea 06/04/2015 Respiratory passive smoking 06/04/2015 Gastrointestinal No abdominal pain 2014 Gastrointestinal No constipation 2014 Gastrointestinal No diarrhea 06/04/2015 Genitourinary/Nephrology No dysuria 06/04 Genitourinary/Nephrology No hernia 2014 Musculoskeletal No bone pain 06/04/2015 Musculoskeletal No joint complaint 2014 Musculoskeletal No myalgias 06/04/2015 Dermatologic No rash 06/04/2015 Dermatologic actinic keratosis 2014 Neurologic No dizziness 06/04/2015 Neurologic No hearing loss 06/04/2015 Psychiatric No anxiety 06/04/2015 Psychiatric No depression 06/04/2015 Respiratory passive smoking 03/03/2015 Respiratory dyspnea 03/03/2015 Allergy/Immunology rhinitis 03/03/2015 Cardiovascular No chest pain/pressure 07/2014 Gastrointestinal No diarrhea 03/03/2015 Gastrointestinal No constipation 2014 Gastrointestinal No abdominal pain 2014 Musculoskeletal No myalgias 03/03/2015 Musculoskeletal No bone pain 03/03/2015 Musculoskeletal No joint complaint 2014 Constitutional No chills 03/03/2015 Constitutional No fatigue 03/03/2015 Constitutional No fever 03/03/2015 Dermatologic No rash 03/03/2015 Neurologic No dizziness 03/03/2015 Neurologic No hearing loss 03/03/2015 Dermatologic actinic keratosis 2014 Psychiatric No anxiety 03/03/2015 Psychiatric No depression 03/03/2015 Eyes No vision change 03/03/2015 Endocrine dry or coarse skin 03/03/2015 Endocrine No cold sensitivity 03/03/2015 Endocrine No weakness 03/03/2015 Genitourinary/Nephrology No hernia 2014 Genitourinary/Nephrology No dysuria 03/03 Ears/Nose/Throat/Neck No headache 2014 Ears/Nose/Throat/Neck No hearing loss 07/2014 Ears/Nose/Throat/Neck No hoarseness 03/03 Ears/Nose/Throat/Neck No dysphagia 2014 Ears/Nose/Throat/Neck No dizziness 2014 Hematologic/Lymphatic No abnormal bleeding and bruising 03/03/2015 Physical Exam Exam Name System Name Item Name Status Result Effective Dates Notes Full Exam - General 1994 Constitutional general appearance Overall: well developed 07/19/2017 None Full Exam - General 1994 Constitutional general appearance Overall: in no acute distress 07/19/2017 None Full Exam - General 1994 Constitutional general appearance Overall: well nourished 07/19/2017 None Full Exam - General 1994 Eyes pupils and irises Overall: pupils equal, round, reactive to light and accomodation 07/19/2017 None Full Exam - General 1994 Ears/Nose/Throat otoscopic exam Overall: external auditory canals clear 07/19/2017 None Full Exam - General 1994 Ears/Nose/Throat otoscopic exam Tympanic membrane: erythematous 07/19/2017 None Full Exam - General 1994 Ears/Nose/Throat otoscopic exam Tympanic membrane: air- fluid level 07/19/2017 None Full Exam - General 1994 Ears/Nose/Throat lips/teeth/gingiva Overall: benign lips 07/19/2017 None Full Exam - General 1994 Ears/Nose/Throat lips/teeth/gingiva Overall: normal dentition 07/19/2017 None Full Exam - General 1994 Ears/Nose/Throat lips/teeth/gingiva Overall: benign gingiva 07/19/2017 None Full Exam - General 1994 Ears/Nose/Throat lips/teeth/gingiva Overall: no masses 07/19/2017 None Full Exam - General 1994 Ears/Nose/Throat oral cavity/pharynx/larynx Overall: oral mucosa clear 07/19/2017 None Full Exam - General 1994 Ears/Nose/Throat oral cavity/pharynx/larynx Overall: oropharyngeal mucosa clear 07/19/2017 None Full Exam - General 1994 Ears/Nose/Throat oral cavity/pharynx/larynx Overall: no masses 07/19/2017 None Full Exam - General 1994 Respiratory auscultation Overall: breath sounds clear bilaterally 07/19/2017 None Full Exam - General 1994 Cardiovascular inspection of carotid pulses Overall: strong, bilaterally equal, no bruits 07/19/2017 None Full Exam - General 1994 Cardiovascular auscultation of heart Overall: regular rate 07/19/2017 None Full Exam - General 1994 Cardiovascular auscultation of heart Overall: normal heart sounds 07/19/2017 None Full Exam - General 1994 Cardiovascular auscultation of heart Overall: no murmurs 07/19/2017 None Full Exam - General 1994 Abdomen abdominal exam Overall: no tenderness 07/19/2017 None Full Exam - General 1994 Abdomen abdominal exam Overall: normal bowel sounds 07/19/2017 None Full Exam - General 1994 Lymphatic neck nodes Overall: shotty lymphadenopathy 07/19/2017 None Full Exam - General 1994 Musculoskeletal spine, ribs and pelvis Overall: spine benign 07/19/2017 None Full Exam - General 1994 Musculoskeletal spine, ribs and pelvis Overall: sacroiliac joint benign 07/19/2017 None Full Exam - General 1994 Musculoskeletal spine, ribs and pelvis Overall: good posture 07/19/2017 None Full Exam - General 1994 Musculoskeletal head and neck Overall: head atraumatic 07/19/2017 None Full Exam - General 1994 Musculoskeletal head and neck Overall: cervical spine benign 07/19/2017 None Full Exam - General 1994 Neurologic cranial nerves Overall: crainial nerves 2 - 12 grossly intact 07/19/2017 None Full Exam - General 1994 Psychiatric orientation/consciousness Overall: oriented to person, place and time 07/19/2017 None Full Exam - General 1994 Constitutional general appearance Overall: well developed 05/30/2017 None Full Exam - General 1994 Constitutional general appearance Overall: in no acute distress 05/30/2017 None Full Exam - General 1994 Constitutional general appearance Overall: well nourished 05/30/2017 None Full Exam - General 1994 Eyes pupils and irises Overall: pupils equal, round, reactive to light and accomodation 05/30/2017 None Full Exam - General 1994 Ears/Nose/Throat otoscopic exam Overall: external auditory canals clear 05/30/2017 None Full Exam - General 1994 Ears/Nose/Throat otoscopic exam Tympanic membrane: erythematous 05/30/2017 None Full Exam - General 1994 Ears/Nose/Throat otoscopic exam Tympanic membrane: air- fluid level 05/30/2017 None Full Exam - General 1994 Ears/Nose/Throat lips/teeth/gingiva Overall: benign lips 05/30/2017 None Full Exam - General 1994 Ears/Nose/Throat lips/teeth/gingiva Overall: normal dentition 05/30/2017 None Full Exam - General 1994 Ears/Nose/Throat lips/teeth/gingiva Overall: benign gingiva 05/30/2017 None Full Exam - General 1994 Ears/Nose/Throat lips/teeth/gingiva Overall: no masses 05/30/2017 None Full Exam - General 1994 Ears/Nose/Throat oral cavity/pharynx/larynx Overall: oral mucosa clear 05/30/2017 None Full Exam - General 1994 Ears/Nose/Throat oral cavity/pharynx/larynx Overall: oropharyngeal mucosa clear 05/30/2017 None Full Exam - General 1994 Ears/Nose/Throat oral cavity/pharynx/larynx Overall: no masses 05/30/2017 None Full Exam - General 1994 Respiratory auscultation Overall: breath sounds clear bilaterally 05/30/2017 None Full Exam - General 1994 Cardiovascular inspection of carotid pulses Overall: strong, bilaterally equal, no bruits 05/30/2017 None Full Exam - General 1994 Cardiovascular auscultation of heart Overall: regular rate 05/30/2017 None Full Exam - General 1994 Cardiovascular auscultation of heart Overall: normal heart sounds 05/30/2017 None Full Exam - General 1994 Cardiovascular auscultation of heart Overall: no murmurs 05/30/2017 None Full Exam - General 1994 Abdomen abdominal exam Overall: no tenderness 05/30/2017 None Full Exam - General 1994 Abdomen abdominal exam Overall: normal bowel sounds 05/30/2017 None Full Exam - General 1994 Lymphatic neck nodes Overall: shotty lymphadenopathy 05/30/2017 None Full Exam - General 1994 Neurologic cranial nerves Overall: crainial nerves 2 - 12 grossly intact 05/30/2017 None Full Exam - General 1994 Psychiatric orientation/consciousness Overall: oriented to person, place and time 05/30/2017 None Full Exam - General 1995 Musculoskeletal spine, ribs and pelvis Overall: good posture 05/30/2017 None Full Exam - General 1994 Musculoskeletal spine, ribs and pelvis Overall: sacroiliac joint benign 05/30/2017 None Full Exam - General 1994 Musculoskeletal spine, ribs and pelvis Overall: spine benign 05/30/2017 None Full Exam - General 1994 Musculoskeletal head and neck Overall: cervical spine benign 05/30/2017 None Full Exam - General 1994 Musculoskeletal head and neck Overall: head atraumatic 05/30/2017 None Full Exam - General 1994 Constitutional general appearance Overall: well developed 01/26/2017 None Full Exam - General 1994 Constitutional general appearance Overall: in no acute distress 01/26/2017 None Full Exam - General 1994 Constitutional general appearance Overall: well nourished 01/26/2017 None Full Exam - General 1994 Ears/Nose/Throat lips/teeth/gingiva Overall: benign lips 01/26/2017 None Full Exam - General 1994 Ears/Nose/Throat oral cavity/pharynx/larynx Overall: oral mucosa clear 01/26/2017 None Full Exam - General 1994 Neurologic cranial nerves Overall: crainial nerves 2 - 12 grossly intact 01/26/2017 None Full Exam - General 1994 Psychiatric orientation/consciousness Overall: oriented to person, place and time 01/26/2017 None Full Exam - General 1994 Eyes conjunctiva /eyelids Overall: conjunctiva clear 01/26/2017 None Full Exam - General 1994 Eyes conjunctiva /eyelids Overall: eyelids normal 01/26/2017 None Full Exam - General 1994 Respiratory respiratory effort/rhythm Overall: no retractions 01/26/2017 None Full Exam - General 1994 Respiratory respiratory effort/rhythm Overall: normal rate 01/26/2017 None Full Exam - General 1994 Musculoskeletal head and neck Overall: head atraumatic 01/26/2017 None Full Exam - General 1994 Psychiatric mood and affect Overall: normal mood and affect 01/26/2017 None Full Exam - General 1994 Psychiatric appearance Overall: well-groomed, good eye contact 01/26/2017 None Full Exam - General 1994 Constitutional general appearance Overall: well developed 01/25/2017 None Full Exam - General 1994 Constitutional general appearance Overall: in no acute distress 01/25/2017 None Full Exam - General 1994 Constitutional general appearance Overall: well nourished 01/25/2017 None Full Exam - General 1994 Eyes pupils and irises Overall: pupils equal, round, reactive to light and accomodation 01/25/2017 None Full Exam - General 1994 Ears/Nose/Throat otoscopic exam Overall: external auditory canals clear 01/25/2017 None Full Exam - General 1994 Ears/Nose/Throat otoscopic exam Tympanic membrane: erythematous 01/25/2017 None Full Exam - General 1994 Ears/Nose/Throat otoscopic exam Tympanic membrane: air- fluid level 01/25/2017 None Full Exam - General 1994 Ears/Nose/Throat lips/teeth/gingiva Overall: benign lips 01/25/2017 None Full Exam - General 1994 Ears/Nose/Throat lips/teeth/gingiva Overall: normal dentition 01/25/2017 None Full Exam - General 1994 Ears/Nose/Throat lips/teeth/gingiva Overall: benign gingiva 01/25/2017 None Full Exam - General 1994 Ears/Nose/Throat lips/teeth/gingiva Overall: no masses 01/25/2017 None Full Exam - General 1994 Ears/Nose/Throat oral cavity/pharynx/larynx Overall: oral mucosa clear 01/25/2017 None Full Exam - General 1994 Ears/Nose/Throat oral cavity/pharynx/larynx Overall: oropharyngeal mucosa clear 01/25/2017 None Full Exam - General 1994 Ears/Nose/Throat oral cavity/pharynx/larynx Overall: no masses 01/25/2017 None Full Exam - General 1994 Respiratory auscultation Overall: breath sounds clear bilaterally 01/25/2017 None Full Exam - General 1994 Cardiovascular inspection of carotid pulses Overall: strong, bilaterally equal, no bruits 01/25/2017 None Full Exam - General 1994 Cardiovascular auscultation of heart Overall: regular rate 01/25/2017 None Full Exam - General 1994 Cardiovascular auscultation of heart Overall: normal heart sounds 01/25/2017 None Full Exam - General 1994 Cardiovascular auscultation of heart Overall: no murmurs 01/25/2017 None Full Exam - General 1994 Abdomen abdominal exam Overall: no tenderness 01/25/2017 None Full Exam - General 1994 Abdomen abdominal exam Overall: normal bowel sounds 01/25/2017 None Full Exam - General 1994 Lymphatic neck nodes Overall: shotty lymphadenopathy 01/25/2017 None Full Exam - General 1994 Neurologic cranial nerves Overall: crainial nerves 2 - 12 grossly intact 01/25/2017 None Full Exam - General 1994 Psychiatric orientation/consciousness Overall: oriented to person, place and time 01/25/2017 None Full Exam - Orthopedics Constitutional general appearance Overall: well nourished 12/21/2016 None Full Exam - Orthopedics Constitutional general appearance Overall: well developed 12/21/2016 None Full Exam - Orthopedics Constitutional general appearance Overall: in no acute distress 12/21/2016 None Full Exam - Orthopedics Eyes conjunctiva/ eyelids Overall: conjunctiva clear 12/21/2016 None Full Exam - Orthopedics Eyes conjunctiva/ eyelids Overall: eyelids normal 12/21/2016 None Full Exam - Orthopedics Ears/Nose/Throat lips/teeth/gingiva Overall: benign lips 12/21/2016 None Full Exam - Orthopedics Ears/Nose/Throat oral cavity/pharynx/larynx Overall: oral mucosa clear 12/21/2016 None Full Exam - Orthopedics Respiratory auscultation Overall: breath sounds clear bilaterally 12/21/2016 None Full Exam - Orthopedics Respiratory respiratory effort/rhythm Overall: no retractions 12/21/2016 None Full Exam - Orthopedics Respiratory respiratory effort/rhythm Overall: normal rate 12/21/2016 None Full Exam - Orthopedics MS: spine/rib/pelvis insp & palp - S/R/P Ribs/trunk inspection: normal ribs and sternum 12/21/2016 tender to palpation over right ribs Full Exam - Orthopedics Psychiatric orientation/consciousness Overall: oriented to person, place and time 12/21/2016 None Full Exam - Orthopedics Psychiatric mood and affect Overall: normal mood and affect 12/21/2016 None Full Exam - Orthopedics Psychiatric appearance Overall: well-groomed, good eye contact 12/21/2016 None Full Exam - General 1994 Constitutional general appearance Overall: well developed 12/15/2016 None Full Exam - General 1994 Constitutional general appearance Overall: in no acute distress 12/15/2016 None Full Exam - General 1994 Constitutional general appearance Overall: well nourished 12/15/2016 None Full Exam - General 1994 Eyes pupils and irises Overall: pupils equal, round, reactive to light and accomodation 12/15/2016 None Full Exam - General 1994 Ears/Nose/Throat otoscopic exam Overall: external auditory canals clear 12/15/2016 None Full Exam - General 1994 Ears/Nose/Throat otoscopic exam Tympanic membrane: erythematous 12/15/2016 None Full Exam - General 1994 Ears/Nose/Throat otoscopic exam Tympanic membrane: air- fluid level 12/15/2016 None Full Exam - General 1994 Ears/Nose/Throat lips/teeth/gingiva Overall: benign lips 12/15/2016 None Full Exam - General 1994 Ears/Nose/Throat lips/teeth/gingiva Overall: normal dentition 12/15/2016 None Full Exam - General 1994 Ears/Nose/Throat lips/teeth/gingiva Overall: benign gingiva 12/15/2016 None Full Exam - General 1994 Ears/Nose/Throat lips/teeth/gingiva Overall: no masses 12/15/2016 None Full Exam - General 1994 Ears/Nose/Throat oral cavity/pharynx/larynx Overall: oral mucosa clear 12/15/2016 None Full Exam - General 1994 Ears/Nose/Throat oral cavity/pharynx/larynx Overall: oropharyngeal mucosa clear 12/15/2016 None Full Exam - General 1994 Ears/Nose/Throat oral cavity/pharynx/larynx Overall: no masses 12/15/2016 None Full Exam - General 1994 Respiratory auscultation Overall: breath sounds clear bilaterally 12/15/2016 None Full Exam - General 1994 Cardiovascular inspection of carotid pulses Overall: strong, bilaterally equal, no bruits 12/15/2016 None Full Exam - General 1994 Cardiovascular auscultation of heart Overall: regular rate 12/15/2016 None Full Exam - General 1994 Cardiovascular auscultation of heart Overall: normal heart sounds 12/15/2016 None Full Exam - General 1994 Cardiovascular auscultation of heart Overall: no murmurs 12/15/2016 None Full Exam - General 1994 Abdomen abdominal exam Overall: no tenderness 12/15/2016 None Full Exam - General 1994 Abdomen abdominal exam Overall: normal bowel sounds 12/15/2016 None Full Exam - General 1994 Lymphatic neck nodes Overall: shotty lymphadenopathy 12/15/2016 None Full Exam - General 1994 Neurologic cranial nerves Overall: crainial nerves 2 - 12 grossly intact 12/15/2016 None Full Exam - General 1994 Psychiatric orientation/consciousness Overall: oriented to person, place and time 12/15/2016 None Full Exam - General 1994 Constitutional general appearance Overall: well developed 10/18/2016 None Full Exam - General 1994 Constitutional general appearance Overall: in no acute distress 10/18/2016 None Full Exam - General 1994 Constitutional general appearance Overall: well nourished 10/18/2016 None Full Exam - General 1994 Eyes pupils and irises Overall: pupils equal, round, reactive to light and accomodation 10/18/2016 None Full Exam - General 1994 Ears/Nose/Throat otoscopic exam Overall: external auditory canals clear 10/18/2016 None Full Exam - General 1994 Ears/Nose/Throat otoscopic exam Tympanic membrane: erythematous 10/18/2016 None Full Exam - General 1994 Ears/Nose/Throat otoscopic exam Tympanic membrane: air- fluid level 10/18/2016 None Full Exam - General 1994 Ears/Nose/Throat lips/teeth/gingiva Overall: benign lips 10/18/2016 None Full Exam - General 1994 Ears/Nose/Throat lips/teeth/gingiva Overall: normal dentition 10/18/2016 None Full Exam - General 1994 Ears/Nose/Throat lips/teeth/gingiva Overall: benign gingiva 10/18/2016 None Full Exam - General 1994 Ears/Nose/Throat lips/teeth/gingiva Overall: no masses 10/18/2016 None Full Exam - General 1994 Ears/Nose/Throat oral cavity/pharynx/larynx Overall: oral mucosa clear 10/18/2016 None Full Exam - General 1994 Ears/Nose/Throat oral cavity/pharynx/larynx Overall: oropharyngeal mucosa clear 10/18/2016 None Full Exam - General 1994 Ears/Nose/Throat oral cavity/pharynx/larynx Overall: no masses 10/18/2016 None Full Exam - General 1994 Respiratory auscultation Overall: breath sounds clear bilaterally 10/18/2016 None Full Exam - General 1994 Cardiovascular inspection of carotid pulses Overall: strong, bilaterally equal, no bruits 10/18/2016 None Full Exam - General 1994 Cardiovascular auscultation of heart Overall: regular rate 10/18/2016 None Full Exam - General 1994 Cardiovascular auscultation of heart Overall: normal heart sounds 10/18/2016 None Full Exam - General 1994 Cardiovascular auscultation of heart Overall: no murmurs 10/18/2016 None Full Exam - General 1994 Abdomen abdominal exam Overall: no tenderness 10/18/2016 None Full Exam - General 1994 Abdomen abdominal exam Overall: normal bowel sounds 10/18/2016 None Full Exam - General 1994 Lymphatic neck nodes Overall: shotty lymphadenopathy 10/18/2016 None Full Exam - General 1994 Neurologic cranial nerves Overall: crainial nerves 2 - 12 grossly intact 10/18/2016 None Full Exam - General 1994 Psychiatric orientation/consciousness Overall: oriented to person, place and time 10/18/2016 None Full Exam - General 1994 Constitutional general appearance Overall: well developed 08/09/2016 None Full Exam - General 1994 Constitutional general appearance Overall: in no acute distress 08/09/2016 None Full Exam - General 1994 Constitutional general appearance Overall: well nourished 08/09/2016 None Full Exam - General 1994 Eyes pupils and irises Overall: pupils equal, round, reactive to light and accomodation 08/09/2016 None Full Exam - General 1994 Ears/Nose/Throat otoscopic exam Overall: external auditory canals clear 08/09/2016 None Full Exam - General 1994 Ears/Nose/Throat otoscopic exam Tympanic membrane: erythematous 08/09/2016 None Full Exam - General 1994 Ears/Nose/Throat otoscopic exam Tympanic membrane: air- fluid level 08/09/2016 None Full Exam - General 1994 Ears/Nose/Throat lips/teeth/gingiva Overall: benign lips 08/09/2016 None Full Exam - General 1994 Ears/Nose/Throat lips/teeth/gingiva Overall: normal dentition 08/09/2016 None Full Exam - General 1995 Ears/Nose/Throat lips/teeth/gingiva Overall: benign gingiva 08/09/2016 None Full Exam - General 1995 Ears/Nose/Throat lips/teeth/gingiva Overall: no masses 08/09/2016 None Full Exam - General 1994 Ears/Nose/Throat oral cavity/pharynx/larynx Overall: oral mucosa clear 08/09/2016 None Full Exam - General 1994 Ears/Nose/Throat oral cavity/pharynx/larynx Overall: oropharyngeal mucosa clear 08/09/2016 None Full Exam - General 1995 Ears/Nose/Throat oral cavity/pharynx/larynx Overall: no masses 08/09/2016 None Full Exam - General 1994 Respiratory auscultation Overall: breath sounds clear bilaterally 08/09/2016 None Full Exam - General 1994 Cardiovascular inspection of carotid pulses Overall: strong, bilaterally equal, no bruits 08/09/2016 None Full Exam - General 1994 Cardiovascular auscultation of heart Overall: regular rate 08/09/2016 None Full Exam - General 1994 Cardiovascular auscultation of heart Overall: normal heart sounds 08/09/2016 None Full Exam - General 1994 Cardiovascular auscultation of heart Overall: no murmurs 08/09/2016 None Full Exam - General 1994 Abdomen abdominal exam Overall: no tenderness 08/09/2016 None Full Exam - General 1994 Abdomen abdominal exam Overall: normal bowel sounds 08/09/2016 None Full Exam - General 1994 Lymphatic neck nodes Overall: shotty lymphadenopathy 08/09/2016 None Full Exam - General 1994 Neurologic cranial nerves Overall: crainial nerves 2 - 12 grossly intact 08/09/2016 None Full Exam - General 1994 Psychiatric orientation/consciousness Overall: oriented to person, place and time 08/09/2016 None Full Exam - General 1994 Constitutional general appearance Overall: well developed 06/21/2016 None Full Exam - General 1994 Constitutional general appearance Overall: in no acute distress 06/21/2016 None Full Exam - General 1994 Constitutional general appearance Overall: well nourished 06/21/2016 None Full Exam - General 1994 Eyes pupils and irises Overall: pupils equal, round, reactive to light and accomodation 06/21/2016 None Full Exam - General 1994 Ears/Nose/Throat otoscopic exam Overall: external auditory canals clear 06/21/2016 None Full Exam - General 1994 Ears/Nose/Throat otoscopic exam Tympanic membrane: erythematous 06/21/2016 None Full Exam - General 1994 Ears/Nose/Throat otoscopic exam Tympanic membrane: air- fluid level 06/21/2016 None Full Exam - General 1994 Ears/Nose/Throat lips/teeth/gingiva Overall: benign lips 06/21/2016 None Full Exam - General 1994 Ears/Nose/Throat lips/teeth/gingiva Overall: normal dentition 06/21/2016 None Full Exam - General 1994 Ears/Nose/Throat lips/teeth/gingiva Overall: benign gingiva 06/21/2016 None Full Exam - General 1994 Ears/Nose/Throat lips/teeth/gingiva Overall: no masses 06/21/2016 None Full Exam - General 1994 Ears/Nose/Throat oral cavity/pharynx/larynx Overall: oral mucosa clear 06/21/2016 None Full Exam - General 1994 Ears/Nose/Throat oral cavity/pharynx/larynx Overall: oropharyngeal mucosa clear 06/21/2016 None Full Exam - General 1994 Ears/Nose/Throat oral cavity/pharynx/larynx Overall: no masses 06/21/2016 None Full Exam - General 1994 Respiratory auscultation Overall: breath sounds clear bilaterally 06/21/2016 None Full Exam - General 1994 Cardiovascular inspection of carotid pulses Overall: strong, bilaterally equal, no bruits 06/21/2016 None Full Exam - General 1994 Cardiovascular auscultation of heart Overall: regular rate 06/21/2016 None Full Exam - General 1994 Cardiovascular auscultation of heart Overall: normal heart sounds 06/21/2016 None Full Exam - General 1994 Cardiovascular auscultation of heart Overall: no murmurs 06/21/2016 None Full Exam - General 1994 Abdomen abdominal exam Overall: no tenderness 06/21/2016 None Full Exam - General 1994 Abdomen abdominal exam Overall: normal bowel sounds 06/21/2016 None Full Exam - General 1994 Lymphatic neck nodes Overall: shotty lymphadenopathy 06/21/2016 None Full Exam - General 1994 Psychiatric orientation/consciousness Overall: oriented to person, place and time 06/21/2016 None Full Exam - General 1994 Neurologic cranial nerves Overall: crainial nerves 2 - 12 grossly intact 06/21/2016 None Full Exam - General 1994 Constitutional general appearance Overall: well developed 05/31/2016 None Full Exam - General 1994 Constitutional general appearance Overall: in no acute distress 05/31/2016 None Full Exam - General 1994 Constitutional general appearance Overall: well nourished 05/31/2016 None Full Exam - General 1994 Eyes pupils and irises Overall: pupils equal, round, reactive to light and accomodation 05/31/2016 None Full Exam - General 1994 Respiratory auscultation Overall: breath sounds clear bilaterally 05/31/2016 None Full Exam - General 1994 Cardiovascular auscultation of heart Overall: normal heart sounds 05/31/2016 None Full Exam - General 1994 Cardiovascular auscultation of heart Overall: no murmurs 05/31/2016 None Full Exam - General 1994 Eyes conjunctiva /eyelids Conjunctiva: injection 05/31/2016 None Full Exam - General 1994 Eyes conjunctiva /eyelids Conjunctiva: erythema 05/31/2016 None Full Exam - General 1994 Psychiatric orientation/consciousness Overall: oriented to person, place and time 05/31/2016 None Full Exam - General 1994 Integument inspection of skin Overall: few scattered moles, no gross abnormalities 05/31/2016 None Full Exam - General 1994 Lymphatic neck nodes Overall: anterior cervical chain benign 05/31/2016 None Full Exam - General 1994 Lymphatic neck nodes Overall: posterior cervical chain benign 05/31/2016 None Full Exam - General 1994 Respiratory respiratory effort/rhythm Overall: no retractions 05/31/2016 None Full Exam - General 1994 Respiratory respiratory effort/rhythm Overall: normal rate 05/31/2016 None Full Exam - General 1994 Ears/Nose/Throat otoscopic exam Overall: external auditory canals clear 05/31/2016 None Full Exam - General 1994 Ears/Nose/Throat otoscopic exam Overall: tympanic membranes clear 05/31/2016 None Full Exam - General 1994 Constitutional general appearance Overall: well developed 02/22/2016 None Full Exam - General 1994 Constitutional general appearance Overall: in no acute distress 02/22/2016 None Full Exam - General 1994 Constitutional general appearance Overall: well nourished 02/22/2016 None Full Exam - General 1994 Eyes pupils and irises Overall: pupils equal, round, reactive to light and accomodation 02/22/2016 None Full Exam - General 1994 Ears/Nose/Throat otoscopic exam Overall: external auditory canals clear 02/22/2016 None Full Exam - General 1994 Ears/Nose/Throat otoscopic exam Tympanic membrane: erythematous 02/22/2016 None Full Exam - General 1994 Ears/Nose/Throat otoscopic exam Tympanic membrane: air- fluid level 02/22/2016 None Full Exam - General 1994 Ears/Nose/Throat lips/teeth/gingiva Overall: benign lips 02/22/2016 None Full Exam - General 1994 Ears/Nose/Throat lips/teeth/gingiva Overall: normal dentition 02/22/2016 None Full Exam - General 1994 Ears/Nose/Throat lips/teeth/gingiva Overall: benign gingiva 02/22/2016 None Full Exam - General 1994 Ears/Nose/Throat lips/teeth/gingiva Overall: no masses 02/22/2016 None Full Exam - General 1994 Ears/Nose/Throat oral cavity/pharynx/larynx Overall: oral mucosa clear 02/22/2016 None Full Exam - General 1994 Ears/Nose/Throat oral cavity/pharynx/larynx Overall: oropharyngeal mucosa clear 02/22/2016 None Full Exam - General 1994 Ears/Nose/Throat oral cavity/pharynx/larynx Overall: no masses 02/22/2016 None Full Exam - General 1994 Respiratory auscultation Overall: breath sounds clear bilaterally 02/22/2016 None Full Exam - General 1994 Cardiovascular inspection of carotid pulses Overall: strong, bilaterally equal, no bruits 02/22/2016 None Full Exam - General 1994 Cardiovascular auscultation of heart Overall: regular rate 02/22/2016 None Full Exam - General 1994 Cardiovascular auscultation of heart Overall: normal heart sounds 02/22/2016 None Full Exam - General 1994 Cardiovascular auscultation of heart Overall: no murmurs 02/22/2016 None Full Exam - General 1994 Abdomen abdominal exam Overall: no tenderness 02/22/2016 None Full Exam - General 1994 Abdomen abdominal exam Overall: normal bowel sounds 02/22/2016 None Full Exam - General 1994 Lymphatic neck nodes Overall: shotty lymphadenopathy 02/22/2016 None Full Exam - General 1994 Neurologic cranial nerves Overall: crainial nerves 2 - 12 grossly intact 02/22/2016 None Full Exam - General 1994 Psychiatric orientation/consciousness Overall: oriented to person, place and time 02/22/2016 None Full Exam - General 1994 Constitutional general appearance Overall: well developed 11/16/2015 None Full Exam - General 1994 Constitutional general appearance Overall: in no acute distress 11/16/2015 None Full Exam - General 1994 Constitutional general appearance Overall: well nourished 11/16/2015 None Full Exam - General 1994 Eyes pupils and irises Overall: pupils equal, round, reactive to light and accomodation 11/16/2015 None Full Exam - General 1994 Ears/Nose/Throat otoscopic exam Overall: external auditory canals clear 11/16/2015 None Full Exam - General 1994 Ears/Nose/Throat otoscopic exam Tympanic membrane: erythematous 11/16/2015 None Full Exam - General 1994 Ears/Nose/Throat otoscopic exam Tympanic membrane: air- fluid level 11/16/2015 None Full Exam - General 1994 Ears/Nose/Throat lips/teeth/gingiva Overall: benign lips 11/16/2015 None Full Exam - General 1994 Ears/Nose/Throat lips/teeth/gingiva Overall: normal dentition 11/16/2015 None Full Exam - General 1994 Ears/Nose/Throat lips/teeth/gingiva Overall: benign gingiva 11/16/2015 None Full Exam - General 1994 Ears/Nose/Throat lips/teeth/gingiva Overall: no masses 11/16/2015 None Full Exam - General 1994 Ears/Nose/Throat oral cavity/pharynx/larynx Overall: oral mucosa clear 11/16/2015 None Full Exam - General 1994 Ears/Nose/Throat oral cavity/pharynx/larynx Overall: oropharyngeal mucosa clear 11/16/2015 None Full Exam - General 1994 Ears/Nose/Throat oral cavity/pharynx/larynx Overall: no masses 11/16/2015 None Full Exam - General 1994 Respiratory auscultation Overall: breath sounds clear bilaterally 11/16/2015 None Full Exam - General 1994 Cardiovascular inspection of carotid pulses Overall: strong, bilaterally equal, no bruits 11/16/2015 None Full Exam - General 1994 Cardiovascular auscultation of heart Overall: regular rate 11/16/2015 None Full Exam - General 1994 Cardiovascular auscultation of heart Overall: normal heart sounds 11/16/2015 None Full Exam - General 1994 Cardiovascular auscultation of heart Overall: no murmurs 11/16/2015 None Full Exam - General 1994 Abdomen abdominal exam Overall: no tenderness 11/16/2015 None Full Exam - General 1994 Abdomen abdominal exam Overall: normal bowel sounds 11/16/2015 None Full Exam - General 1994 Lymphatic neck nodes Overall: shotty lymphadenopathy 11/16/2015 None Full Exam - General 1994 Neurologic cranial nerves Overall: crainial nerves 2 - 12 grossly intact 11/16/2015 None Full Exam - General 1994 Psychiatric orientation/consciousness Overall: oriented to person, place and time 11/16/2015 None Full Exam - General 1994 Musculoskeletal spine, ribs and pelvis Sacroiliac joints: tender left sacroiliac joint 11/16/2015 None Full Exam - General 1994 Musculoskeletal spine, ribs and pelvis Sacroiliac joints: tender right sacroiliac joint 11/16/2015 None Full Exam - General 1994 Constitutional general appearance Overall: well developed 09/29/2015 None Full Exam - General 1994 Constitutional general appearance Overall: in no acute distress 09/29/2015 None Full Exam - General 1994 Constitutional general appearance Overall: well nourished 09/29/2015 None Full Exam - General 1994 Eyes pupils and irises Overall: pupils equal, round, reactive to light and accomodation 09/29/2015 None Full Exam - General 1994 Ears/Nose/Throat otoscopic exam Overall: external auditory canals clear 09/29/2015 None Full Exam - General 1994 Ears/Nose/Throat otoscopic exam Tympanic membrane: erythematous 09/29/2015 None Full Exam - General 1994 Ears/Nose/Throat otoscopic exam Tympanic membrane: air- fluid level 09/29/2015 None Full Exam - General 1994 Ears/Nose/Throat lips/teeth/gingiva Overall: benign lips 09/29/2015 None Full Exam - General 1994 Ears/Nose/Throat lips/teeth/gingiva Overall: normal dentition 09/29/2015 None Full Exam - General 1994 Ears/Nose/Throat lips/teeth/gingiva Overall: benign gingiva 09/29/2015 None Full Exam - General 1994 Ears/Nose/Throat lips/teeth/gingiva Overall: no masses 09/29/2015 None Full Exam - General 1994 Ears/Nose/Throat oral cavity/pharynx/larynx Overall: oral mucosa clear 09/29/2015 None Full Exam - General 1994 Ears/Nose/Throat oral cavity/pharynx/larynx Overall: oropharyngeal mucosa clear 09/29/2015 None Full Exam - General 1994 Ears/Nose/Throat oral cavity/pharynx/larynx Overall: no masses 09/29/2015 None Full Exam - General 1994 Respiratory auscultation Overall: breath sounds clear bilaterally 09/29/2015 None Full Exam - General 1994 Cardiovascular inspection of carotid pulses Overall: strong, bilaterally equal, no bruits 09/29/2015 None Full Exam - General 1994 Cardiovascular auscultation of heart Overall: regular rate 09/29/2015 None Full Exam - General 1994 Cardiovascular auscultation of heart Overall: normal heart sounds 09/29/2015 None Full Exam - General 1994 Cardiovascular auscultation of heart Overall: no murmurs 09/29/2015 None Full Exam - General 1994 Abdomen abdominal exam Overall: no tenderness 09/29/2015 None Full Exam - General 1994 Abdomen abdominal exam Overall: normal bowel sounds 09/29/2015 None Full Exam - General 1994 Lymphatic neck nodes Overall: shotty lymphadenopathy 09/29/2015 None Full Exam - General 1994 Psychiatric orientation/consciousness Overall: oriented to person, place and time 09/29/2015 None Full Exam - General 1994 Neurologic cranial nerves Overall: crainial nerves 2 - 12 grossly intact 09/29/2015 None Full Exam - General 1994 Constitutional general appearance Overall: well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 adulthood 10/18/2016 None hypertension Blood Pressure Values patient checking blood pressure at home - did not bring in readings 10/18/2016 None hypertension Alleviating Factors medication 10/18/2016 None hypertension Pertinent Findings Denies dizziness 10/18/2016 -occasional hypertension Pertinent Findings Denies dyspnea 10/18/2016 None hypertension Pertinent Findings edema 10/18/2016 None diabetes mellitus Quality chronic 10/18/2016 None diabetes mellitus Alleviating Factors medication 10/18/2016 None diabetes mellitus Exacerbating Factors diet 10/18/2016 None diabetes mellitus Pertinent Findings dizziness 10/18/2016 None diabetes mellitus Pertinent Findings Denies nausea 10/18/2016 None diabetes mellitus Test results Pt checking blood glucose readings, did not bring results to clinic 10/18/2016 124 this AM diabetes mellitus Glucose monitoring twice daily 10/18/2016 None diabetes mellitus Pertinent Findings Denies dyspnea 10/18/2016 None depression Quality stable 10/18/2016 None depression Quality improving 10/18/2016 None depression Quality worsening 08/09/2016 None depression Onset and Resolution gradual in onset 08/09/2016 None hypertension Onset and Resolution ongoing 08/09/2016 None hypertension Onset of Symptom during adulthood 08/09/2016 None hypertension Blood Pressure Values patient checking blood pressure at home - did not bring in readings 08/09/2016 None hypertension Alleviating Factors medication 08/09/2016 None hypertension Pertinent Findings Denies dizziness 08/09/2016 -occasional hypertension Pertinent Findings Denies dyspnea 08/09/2016 None hypertension Pertinent Findings edema 08/09/2016 None diabetes mellitus Quality chronic 08/09/2016 None diabetes mellitus Alleviating Factors medication 08/09/2016 None diabetes mellitus Exacerbating Factors diet 08/09/2016 None diabetes mellitus Pertinent Findings Denies dizziness 08/09/2016 None diabetes mellitus Pertinent Findings Denies nausea 08/09/2016 None hypertension Onset and Resolution ongoing 06/21/2016 None hypertension Onset of Symptom during adulthood 06/21/2016 None hypertension Blood Pressure Values patient checking blood pressure at home - did not bring in readings 06/21/2016 None hypertension Alleviating Factors medication 06/21/2016 None hypertension Pertinent Findings Denies dizziness 06/21/2016 -occasional hypertension Pertinent Findings Denies dyspnea 06/21/2016 None hypertension Pertinent Findings edema 06/21/2016 None diabetes mellitus Quality chronic 06/21/2016 None diabetes mellitus Alleviating Factors medication 06/21/2016 None diabetes mellitus Exacerbating Factors diet 06/21/2016 None diabetes mellitus Pertinent Findings Denies dizziness 06/21/2016 None diabetes mellitus Pertinent Findings Denies nausea 06/21/2016 None depression Onset and Resolution gradual in onset 06/21/2016 None depression Quality worsening 06/21/2016 None sore throat Location on both sides 05/31/2016 None sore throat Quality aching 05/31/2016 None sore throat Onset and Resolution gradual in onset 05/31/2016 None sore throat Pertinent Findings Denies cough 05/31/2016 None sore throat Pertinent Findings decreased energy level 05/31/2016 None sore throat Pertinent Findings Denies fever 05/31/2016 None eye discharge Location in the left eye 05/31/2016 None eye discharge Location in the right eye 05/31/2016 None eye discharge Quality intermittent 05/31/2016 None eye discharge Onset and Resolution sudden in onset 05/31/2016 None eye discharge Onset of Symptom 1 weeks ago 05/31/2016 None eye discharge Pertinent Findings Denies use of eye drops 05/31/2016 None eye discharge Pertinent Findings Denies URI symptoms 05/31/2016 None eye discharge Pertinent Findings eyelid erythema 05/31/2016 sclera redness sore throat Onset of Symptom 1 days ago 05/31/2016 None hypertension Onset and Resolution ongoing 02/22/2016 None hypertension Onset of Symptom during adulthood 02/22/2016 None hypertension Blood Pressure Values patient checking blood pressure at home - did not bring in readings 02/22/2016 None hypertension Alleviating Factors medication 02/22/2016 None hypertension Pertinent Findings Denies dizziness 02/22/2016 -occasional hypertension Pertinent Findings Denies dyspnea 02/22/2016 None hypertension Pertinent Findings edema 02/22/2016 None diabetes mellitus Quality chronic 02/22/2016 None diabetes mellitus Alleviating Factors medication 02/22/2016 None diabetes mellitus Exacerbating Factors diet 02/22/2016 None diabetes mellitus Glucose monitoring twice daily 02/22/2016 None diabetes mellitus Pertinent Findings Denies dizziness 02/22/2016 None diabetes mellitus Pertinent Findings Denies nausea 02/22/2016 None hip pain Location on the right 11/16/2015 None hip pain Quality constant 11/16/2015 None hip pain Quality worsening 11/16/2015 None hip pain Location in the groin 11/16/2015 None hip pain Quality sharp pain 11/16/2015 None hip pain Quality acute 11/16/2015 None hip pain Onset and Resolution sudden in onset 11/16/2015 None hip pain Onset of Symptom 3 weeks ago 11/16/2015 None hip pain Onset and Resolution ongoing 11/16/2015 None hip pain Pertinent Findings pain with movement 11/16/2015 None hypertension Onset and Resolution ongoing 11/16/2015 None hypertension Onset of Symptom during adulthood 11/16/2015 None hypertension Blood Pressure Values patient checking blood pressure at home - did not bring in readings 11/16/2015 None hypertension Alleviating Factors medication 11/16/2015 None hypertension Pertinent Findings dizziness 11/16/2015 -occasional hypertension Pertinent Findings Denies dyspnea 11/16/2015 None hypertension Pertinent Findings edema 11/16/2015 None diabetes mellitus Quality chronic 11/16/2015 None diabetes mellitus Glucose monitoring daily 11/16/2015 None diabetes mellitus Glucose monitoring twice daily 11/16/2015 None diabetes mellitus Test results Pt checking blood glucose at home, see scanned readings 2015 None diabetes mellitus Alleviating Factors medication 11/16/2015 None diabetes mellitus Exacerbating Factors diet 11/16/2015 None low back and leg pain Location on the right 11/16/2015 None low back and leg pain Radiating the right groin 11/16/2015 None low back and leg pain Quality sharp pain 11/16/2015 None low back and leg pain Quality acute 11/16/2015 None low back and leg pain Quality constant 11/16/2015 None low back and leg pain Onset of Symptom 3 weeks ago 11/16/2015 None low back and leg pain Limitation on Activities allows weight bearing activity 11/16/2015 None low back and leg pain Limitation on Activities moderately limits activities 11/16/2015 None low back and leg pain Pertinent Findings pain with movement 11/16/2015 None Hospital Follow Up Quality acute 09/29/2015 None Hospital Follow Up Onset and Resolution resolved 09/29/2015 None hypertension Quality stable 09/29/2015 None hypertension Onset and Resolution ongoing 09/29/2015 None hypertension Frequency of Episodes unchanged 09/29/2015 None hypertension Alleviating Factors medication 09/29/2015 None abdominal pain Location in the LUQ 08/03/2015 None abdominal pain Quality stabbing 08/03/2015 None abdominal pain Quality dull 08/03/2015 when she eats abdominal pain Onset and Resolution sudden in onset 08/03/2015 None abdominal pain Onset of Symptom 2 weeks ago 08/03/2015 None abdominal pain Limitation on Activities does not limit activities 08/03/2015 None abdominal pain Pertinent Findings abdominal distension 08/03/2015 None abdominal pain Pertinent Findings bloating 08/03/2015 None hypertension Quality intermittent 07/06/2015 None hypertension Onset and Resolution ongoing 07/06/2015 None hypertension Blood Pressure Values patient checking blood pressure at home - did not bring in readings 07/06/2015 None hypertension Frequency of Episodes unchanged 07/06/2015 None hypertension Alleviating Factors medication 07/06/2015 None hypertension Pertinent Findings Denies dizziness 07/06/2015 None hypertension Pertinent Findings Denies dyspnea 07/06/2015 None hypertension Pertinent Findings Denies edema 07/06/2015 None diabetes mellitus Alleviating Factors medication 07/06/2015 None diabetes mellitus Alleviating Factors diet 07/06/2015 None diabetes mellitus Nutrition ADA diet 07/06/2015 None hyperlipidemia Onset and Resolution ongoing 07/06/2015 None hyperlipidemia Frequency of Episodes unchanged 07/06/2015 None hyperlipidemia Significant Medical Conditions renal failure 07/06/2015 None hyperlipidemia Alleviating Factors medication 07/06/2015 None hyperlipidemia Exacerbating Factors diet 07/06/2015 None diabetes mellitus Glucose monitoring daily 07/06/2015 Checks sporadically diabetes mellitus Quality IDDM 07/06/2015 None diabetes mellitus Test results Pt checking blood glucose at home, see scanned readings 2015 None diabetes mellitus Pertinent Findings Denies dizziness 07/06/2015 None diabetes mellitus Pertinent Findings Denies increased hunger 07/06/2015 None diabetes mellitus Pertinent Findings Denies lethargy 07/06/2015 None diabetes mellitus Pertinent Findings nausea 07/06/2015 Since beginning bydureon hypertension Quality stable 07/06/2015 None nausea Onset and Resolution sudden in onset 07/06/2015 None nausea Onset and Resolution ongoing 07/06/2015 None nausea Onset of Symptom 4 weeks ago 07/06/2015 None nausea Frequency of Episodes daily 07/06/2015 Comes on about 36 hours after the bydureon injection and it lasts at least 3 days nausea Length of Episodes 3-5 days 07/06/2015 at a time neck pain Location on the left 07/06/2015 None neck pain Quality acute 07/06/2015 None neck pain Onset and Resolution sudden in onset 07/06/2015 None neck pain Onset of Symptom 10 days ago 07/06/2015 None neck pain Pertinent Findings ear pain 07/06/2015 None neck pain Pertinent Findings hoarseness 07/06/2015 None neck pain Pertinent Findings Denies mental status changes 07/06/2015 None cough Location in the throat 06/17/2015 None cough Quality constant 06/17/2015 None cough Quality hacking 06/17/2015 None cough Quality productive 06/17/2015 None cough Onset and Resolution sudden in onset 06/17/2015 None cough Onset of Symptom 2 weeks ago 06/17/2015 None cough Frequency of Episodes daily 06/17/2015 None cough Pertinent Findings chest discomfort 06/17/2015 None cough Pertinent Findings fever 06/17/2015 None cough Pertinent Findings hoarseness 06/17/2015 None cough Pertinent Findings nausea 06/17/2015 None cough Pertinent Findings vomiting 06/17/2015 None sore throat Location on both sides 06/17/2015 None sore throat Quality dull 06/17/2015 None sore throat Quality scratchy 06/17/2015 None sore throat Onset and Resolution sudden in onset 06/17/2015 None sore throat Onset of Symptom 2 weeks ago 06/17/2015 None sore throat Frequency of Episodes daily 06/17/2015 None earache Location both ears 06/17/2015 None earache Onset and Resolution gradual in onset 06/17/2015 None earache Onset of Symptom 2 weeks ago 06/17/2015 None earache Frequency of Episodes daily 06/17/2015 None chest congestion Quality constant 06/17/2015 None chest congestion Onset and Resolution sudden in onset 06/17/2015 None chest congestion Onset of Symptom 2 weeks ago 06/17/2015 None chest congestion Pertinent Findings cough 06/17/2015 None nausea Onset of Symptom 2 weeks ago 06/17/2015 None hypertension Quality intermittent 06/04/2015 None hypertension Blood Pressure Values patient checking blood pressure at home - did not bring in readings 06/04/2015 None hypertension Pertinent Findings dizziness 06/04/2015 None hypertension Pertinent Findings dyspnea 06/04/2015 None hypertension Pertinent Findings edema 06/04/2015 Was started on allopurinal and hctz in January diabetes mellitus Quality NIDDM 06/04/2015 None diabetes mellitus Pertinent Findings Denies numbness 06/04/2015 None hyperlipidemia Onset and Resolution ongoing 06/04/2015 None hypertension Onset and Resolution ongoing 06/04/2015 None hypertension Frequency of Episodes unchanged 06/04/2015 None hypertension Alleviating Factors medication 06/04/2015 None diabetes mellitus Test results Pt checking blood glucose readings, did not bring results to clinic 06/04/2015 None diabetes mellitus Glucose monitoring twice daily 06/04/2015 None diabetes mellitus Alleviating Factors medication 06/04/2015 None diabetes mellitus Alleviating Factors diet 06/04/2015 None diabetes mellitus Nutrition ADA diet 06/04/2015 None diabetes mellitus Exercise minimal exercise 06/04/2015 None hyperlipidemia Frequency of Episodes unchanged 06/04/2015 None hyperlipidemia Significant Medical Conditions renal failure 06/04/2015 None hypertension Quality intermittent 03/03/2015 None hypertension Blood Pressure Values patient checking blood pressure at home - did not bring in readings 03/03/2015 None hypertension Pertinent Findings dizziness 03/03/2015 occ lightheaded due to med hypertension Pertinent Findings Denies dyspnea 03/03/2015 None hypertension Pertinent Findings Denies edema 03/03/2015 None diabetes mellitus Quality NIDDM 03/03/2015 None diabetes mellitus Glucose monitoring before meals 03/03/2015 2-3 times diabetes mellitus Pertinent Findings Denies numbness 03/03/2015 None hyperlipidemia Onset and Resolution ongoing 03/03/2015 None Advance Directives Advance Directives Present Encounters Encounter Performer Location Codes Date ([id number]) [id number] EST. PATIENT, LEVEL IV Diagnosis: Type 2 diabetes mellitus without complications[ICD10: E11.9] Diagnosis: Essential (primary) hypertension[ICD10: I10] Diagnosis: Mixed hyperlipidemia[ICD10: E78.2] Melisa Hughes MD, [facility] CPT-4: 57318 07/19/2017 ([id number]) 50175 EST. 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 PATIENT, LEVEL IV Diagnosis: Type 2 diabetes mellitus without complications[ICD10: E11.9] Diagnosis: Generalized anxiety disorder[ICD10: F41.1] Diagnosis: Essential (primary) hypertension[ICD10: I10] Melisa Hughes MD, [facility] CPT-4: 82694 01/25/2017 [id number] EST. PATIENT, LEVEL III Diagnosis: Pleurodynia[ICD10: R07.81] Virgie Hughes MD, [facility] CPT-4 : 40635 12/21/2016 [id number]) 23143 EST. PATIENT, LEVEL IV Diagnosis: Generalized anxiety disorder[ICD10: F41.1] Diagnosis: Essential (primary) hypertension[ICD10: I10] Diagnosis: Low back pain[ICD10: M54.5] Diagnosis: Urinary tract infection, site not specified[ICD10: N39.0] Diagnosis: Type 2 diabetes mellitus without complications[ICD10: E11.9] Melisa Hughes MD [facility] CPT-4: 64780 12/15/2016 ([id number]) 41727 EST. PATIENT, LEVEL IV Diagnosis: Type 2 diabetes mellitus without complications[ICD10: E11.9] Diagnosis: Essential (primary) hypertension[ICD10: I10] Diagnosis: Other insomnia[ICD10: G47.09] Melisa Hughes MD [facility] CPT- 4: 84282 10/18/2016 ([id number]) 03131 EST. PATIENT, LEVEL IV Diagnosis: Essential (primary) hypertension[ICD10: I10] Diagnosis: Type 2 diabetes mellitus without complications[ICD10: E11.9] Melisa Hughes MD [facility] CPT-4: 65734 08/09/2016 ([id number]) 53311 EST. PATIENT, LEVEL IV Diagnosis: Type 2 diabetes mellitus without complications[ICD10: E11.9] Diagnosis: Essential (primary) hypertension[ICD10: I10] Diagnosis: Mixed hyperlipidemia[ICD10: E78.2] Diagnosis: Generalized anxiety disorder[ICD10: F41.1] Melisa Hughes MD [facility] CPT-4: 56884 06/21/2016 ([id number]) 57388 EST. PATIENT, LEVEL III Diagnosis: Acute follicular conjunctivitis, bilateral[ICD10: H10.013] Aleena Hughes MD [facility] CPT-4: 02939 05/31/2016 ([id number]) 41561 EST. 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 PATIENT, LEVEL IV Diagnosis: Sacroiliitis, not elsewhere classified[ICD10: M46.1] Diagnosis: Unspecified inflammatory spondylopathy, sacral and sacrococcygeal region[ICD10: M46.98] Diagnosis: Essential (primary) hypertension[ICD10: I10] Melisa Hughes MD, [facility] CPT-4: 11779 11/16/2015 ([id number]) 31667 EST. 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 PATIENT, LEVEL IV Diagnosis: Generalized abdominal pain[ICD10: R10.84] Diagnosis: Other cholelithiasis without obstruction[ICD10: K80.80] Virgie Hughes MD, [facility] CPT-4: 34263 08/03/2015 ([id number]) 22848 EST. 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 PATIENT, LEVEL IV Diagnosis: Acute recurrent maxillary sinusitis[ICD10: J01.01] Diagnosis: Acute laryngopharyngitis[ICD10: J06.0] Diagnosis: Gastro-esophageal reflux disease without esophagitis[ICD10: K21.9] Diagnosis: Other specified diseases of inner ear, bilateral[ICD10: H83.8X3] Virgie Hughes MD, [facility] CPT-4: 61107 06/17/2015 ([id number]) 23575 EST. 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] Diagnosis: Essential (primary) hypertension[ICD10: I10] Melisa Hughes MD, [facility] CPT-4: 93644 06/04/2015 ([id number]) OFFICE VISIT, NEW - LEVEL 4 Diagnosis: ESSENTIAL HYPERTENSION[ICD9: 401.9] Diagnosis: HYPOTHYROIDISM[ICD9: 244.9] Diagnosis: DIABETES TYPE II[ICD9: 250.00] Diagnosis: Stage 3 chronic kidney disease due to type 2 diabetes mellitus[ICD9: 250.40] Melisa Hughes MD, [facility] CPT-4: 00070 2014 Plan of Care Planned Activity Notes Codes Status Date Appointment: Melisa Hughes WPtel: [phone] [facility] [place] (15 min) Moderate 07/19/2017 Patient Education: Patient Medication Summary Completed 07/19/2017 Appointment: Melisa Hughes WPtel: [phone] [facility] [place] (15 min) Moderate 05/30/2017 Patient Education: Patient Medication Summary Completed 05/30/2017 [facility]ment[phone] [place] [facility] - Annual Wellness Visit 01/26/2017 Patient Education: Patient Medication Summary Completed 01/26/2017 Appointment: [phone] [place] (15 min) Moderate 01/25/2017 Patient Education: Patient Medication Summary Completed 01/25/2017 Appointment: [facility] Hughes [phone] [place] (15 min) Moderate 01/17/2017 Referral: Giuliano Santo at 12:40 PM. Patient informed. Referral info faxed. Completed 01/17/2017 App[facility]ment: [phone] [place] (30 min) Complex 12/21/2016 Patient Education: Patient Medication Summary Completed 12/21/2016 Referral: External, Ordering Provider Patient informed. Script faxed. Completed 12/20/2016 Appointment: Melisa Hughes WPtel: [phone] [facility] [place] (15 min) Moderate 12/15/2016 Patient Education: Patient Medication Summary Completed 12/15/2016 Care Plan: Referral Order SNOMED-CT : 450306557 Pending 12/15/2016 Care Plan: Referral Order SNOMED-CT : [id number] Pending 12/15/2016 Appointment: Melisa Hughes WPtel: [facility] [place] (15 min) Moderate 10/18/2016 Patient Education: Patient Medication Summary Completed 10/18/2016 Appointment: Melisa Hughes WPtel: [address] [place], [place] [phone] [place] (15 min) Moderate 08/09/2016 Patient Education: Patient Medication Summary Completed 08/09/2016 Appointment: Melisa Hughes WPtel: [address] [place], [place] [phone] [place] (15 min) Moderate 06/21/2016 Patient Education: Patient Medication Summary Completed 06/21/2016 Care Plan: SCREENINGMAMMOGRAPHYDIGITAL LOINC : 60088-7 Pending 06/21/2016 Appointment: Aleena Melton WPtel: [address] [place], [place] [phone] [place] (15 min) Moderate 05/31/2016 Patient Education: Patient Medication Summary Completed 05/31/2016 Referral: Giuliano Joseph at 0925. Patient informed. Completed 02/25/2016 Appointment: Melisa Hughes WPtel: [address] [place], [place] [id number] [place] (15 min) Moderate 02/22/2016 Patient Education: Patient Medication Summary Completed 02/22/2016 Patient Education: Hypertension Completed 02/22/2016 Care Plan: Referral Order SNOMED-CT : [id number] Pending 02/22/2016 Care Plan: Referral Order SNOMED-CT : [id number] Pending 02/22/2016 Patient Education: Patient Medication Summary Completed 11/16/2015 Care Plan: Referral Order SNOMED-CT : [id number] Pending 11/16/2015 Appointment: Melisa Hughes WPtel: [facility] [place] (15 min) Moderate 2015 Appointment: [phone] (15 min) Moderate 09/29/2015 Patient Education: Patient Medication Summary Completed 09/29/2015 Patient Education: Hypertension Completed 09/29/2015 Appointment: (30 min) Complex 09/03/2015 Patient Education: Patient Medication Summary Completed 08/05/2015 Appointment: (30 min) Complex 08/03/2015 Patient Education: Patient Medication Summary Completed 08/03/2015 Appointment: Melisa Hughes WPtel: [facility] (15 min) Moderate 07/06/2015 Patient Education: Patient Medication Summary Completed 07/06/2015 Patient Education: Hypertension Completed 07/06/2015 Appointment: (15 min) Moderate 06/17/2015 Patient Education: Patient Medication Summary Completed 06/17/2015 Appointment: Melisa Hughes WPtel: [facility] (15 min) Moderate 06/04/2015 Patient Education: Patient Medication Summary Completed 06/04/2015 Patient Education: Hypertension Completed 06/04/2015 Appointment: Melisa Hughes WPtel: [facility] [place] New Patient 03/03/2015 Patient Education: Patient Medication Summary Completed 03/03/2015 Patient Education: Hypertension Completed 03/03/2015 Referral: External, Ordering Provider Referral Appointment Requested Referral: Josesito Covarrubias WPtel: Referral Initiated Referral: Josesito Covarrubias WPtel: Referral Appointment Requested Referral: Giuliano Santo Referral Completed Referral: Giuliano Joseph Referral Appointment Requested Referral: Linnea Cleveland WPtel: [address] [place], [place] [phone] [place] Referral Appointment Requested Referral: Linnea Cleveland WPtel: [address] [place], [place] [phone] Referral Completed Instructions No Instructions
--- OUTSIDE RECORDS SUMMARY | 2017-08-17 12:39 | XMS REPORT ---
Author Author JOE KENYON [facility] DENTAL Address Unknown Care Team Providers Care Accounts Payable Associate Name Role Phone JOE KENYON Unavailable PROBLEMS Unknown Problems ALLERGIES Substance Reaction Event Type Date Status hig dose of aspirin Unknown Non Drug Allergy May, Active SOCIAL HISTORY No smoking Hx information available PLAN OF CARE Activity Details Follow Up prn Reason:prophy VITAL SIGNS Blood pressure systolic 161 mmHg 2016-05-17 Blood pressure diastolic 84 mmHg 2016-05-17 MEDICATIONS Medication Instructions Dosage Frequency Start Date End Date Duration Status Metoprolol Succinate Active Hydrochlorothiazide Active Vitamin D-3 Active Mtccv-0-tmrb Ethyl Esters Active Valsartan Active Multi Vitamin Daily Active Felodipine Active Combivent Active Victoza Active Vitamin C Active Ferrous Sulfate Active Magnesium Active Levothyroxine Sodium Active Vitamin B12 Active Allopurinol Active Simvastatin Active Tramadol HCl Active GlipiZIDE Active Aspirin Adult Low Dose Active RESULTS No Results PROCEDURES Procedure Date Ordered Related Diagnosis Body Site LTD ORAL EVALUATION - PROBLEM FOCUS May 17, 2016 INTRAORL-PERIAPICAL 1 FILM [id number] May 17, 2016 RESIN COMPOS - 1 SURFACE POSTERIOR May 17, 2016 BITEWING - SINGLE FILM May 17, 2016 IMMUNIZATIONS No Known Immunizations
--- OUTSIDE RECORDS SUMMARY | 2017-08-17 12:39 | XMS REPORT | CCD ---
Author Author Melisa Hughes MD, [facility] Address [address] [place] [address] Phone Care Team Providers Care Channeler Runner Name Role Phone PP Unavailable CCM Unavailable Summary Purpose Interface Exchange Insurance Providers Payer name Policy type / Coverage type Covered alliance party ID Effective Begin Date Effective End Date WPS Medicare Part B Medicare Part B [id number] Unknown Unknown GEHA Medicare Part B [id number] Unknown Unknown Family history Grandmother Diagnosis Age [...] Retired [employer] 03/03/[address]: 549763597 Never smoker 03/03/[address]: 309491949 Never drinks alcohol 03/03/2015 Allergies, Adverse Reactions, [...] KwikPen 100 unit/mL (3 mL) subcutaneous RxNorm: 8088188 30 Unit(s) SQ QPM - pt to increase dose by4 units as directed by physician for goal of 30 units 07/19/2017 07/22/2017 Active metoprolol succinate ER 50 mg tablet,extended release 24 hr RxNorm: 262499 TAKE 1 TABLET BY MOUTH EVERY DAY 07/11/201708/2018 Active felodipine ER 10 mg tablet,extended release 24 hr RxNorm: 953024 TAKE 1 TABLET BY MOUTH EVERY DAY 07/10/2017 04/05/2018 Active Basaglar KwikPen 100 unit/mL (3 mL) subcutaneous RxNorm: 2735054 14 Unit(s) SQ QPM 07/10/2017 07/13/2017 Inactive levothyroxine 50 mcg tablet RxNorm: 604827 TAKE 1 TABLET BY MOUTH DAILY 06/29/2017 09/26/2017 Active simvastatin 40 mg tablet RxNorm: 200587 TAKE 1 TABLET BY MOUTH EVERY DAY 06/19/2017 06/13/2018 Active Victoza 2-Dereck 0.6 mg/0.1 mL (18 mg/3 mL) subcutaneous pen injector RxNorm: 585531 INJECT 1.8 MILLIGRAM SUBCUTANEOUSLY DAILY 06/15/2017 12/11/2017 Active Basaglar KwikPen 100 unit/mL (3 mL) subcutaneous RxNorm: 5797042 10 Unit(s) SQ QPM 05/31/2017 05/30/2017 Inactive Basaglar KwikPen 100 unit/mL (3 mL) subcutaneous RxNorm: 3354131 10 Unit(s) SQ QPM 05/31/2017 07/09/2017 Inactive Pen Needle 32 gauge x 5/32" RxNorm: USE WITH INSULIN INJECTIONS WEEKLY 02/28/2017 11/24/2017 Active Victoza 2-Dereck 0.6 mg/0.1 mL (18 mg/3 mL) subcutaneous pen injector RxNorm: 768917 1.8 Milligram(s) SQ daily 02/09/201706/14 Inactive quanity sufficient for 30 day supply- hold for refill escitalopram 10 mg tablet RxNorm: 126565 1 Tablet(s) PO QPM 01/19/2018 Active sulfamethoxazole 800 mg-trimethoprim 160 mg tablet RxNorm: 181738 1 Tablet(s) PO BID 12/15/2016 12/21/2016 Inactive Eliquis 2.5 mg tablet RxNorm: 9451245 1 Tablet(s) PO BID 201610/17/2016 Inactive hydrocodone 10 mg-acetaminophen 325 mg tablet RxNorm: 900065 1 Tablet(s) PO Q4H as needed for pain 07/25/2016 08/08/2016 Inactive tramadol 50 mg tablet RxNorm: 387340 1-2 Tablet(s) PO Q6 as needed for pain 07/19/2016 08/09/2016 Inactive Pen Needle 32 gauge x 32" RxNorm: USE WITH INSULIN INJECTIONS WEEKLY 07/01/2016 02/27/2017 Inactive allopurinol 100 mg tablet RxNorm: 300825 1 Tablet(s) PO BID 06/15/2017 Inactive hydrochlorothiazide 12.5 mg tablet RxNorm: 395799 1 Tablet(s) PO 3 x week 06/21/2016 06/15/2017 Inactive glipizide 10 mg tablet RxNorm: 127795 1 Tablet(s) PO BID 201505/30/2017 Inactive felodipine ER 10 mg tablet,extended release 24 hr RxNorm: 358084 1 Tablet(s) PO daily 06/21/2016 06/15/2017 Inactive levothyroxine 50 mcg tablet RxNorm: 024388 1 Tablet(s) PO daily 06/21/2016 06/15/2017 Inactive simvastatin 40 mg tablet RxNorm: 241342 1 Tablet(s) PO daily TAKE 1 TABLET BY MOUTH EVERY DAY 06/21/2016 06/15/2017 Inactive Victoza 2-Dereck 0.6 mg/0.1 mL (18 mg/3 mL) subcutaneous pen injector RxNorm: 937449 1.2 Milligram(s) SQ daily 06/21/201602/08 Inactive quanity sufficient for 30 day supply/DC byetta valsartan 320 mg tablet RxNorm: 940701 1 Tablet(s) PO daily 10/17/2016 Inactive metoprolol succinate ER 50 mg tablet,extended release 24 hr RxNorm: 745445 1 Tablet(s) PO daily 06/21/2016 06/15/2017 Inactive escitalopram 10 mg tablet RxNorm: 614509 1 Tablet(s) PO QPM 11/01/2016 Inactive polymyxin B sulfate 10,000 unit-trimethoprim 1 mg/mL eye drops RxNorm: 666548 2 Drop(s) OPH QID 05/31/2016 06/09/2016 Inactive simvastatin 40 mg tablet RxNorm: 601942 TAKE 1 TABLET BY MOUTH EVERY DAY 03/14/2016 06/20/2016 Inactive hydrochlorothiazide 12.5 mg tablet RxNorm: 006162 1 Tablet(s) PO 3 x week 02/22/2016 06/20/2016 Inactive Anusol-HC 25 mg rectal suppository RxNorm: 5653772 1 Suppository RTL BID as needed hemorrhoid 02/22/2016 04/21/2016 Inactive valsartan 320 mg tablet RxNorm: 200267 1 Tablet(s) PO daily 02/201606/20/2016 Inactive Victoza 2-Dereck 0.6 mg/0.1 mL (18 mg/3 mL) subcutaneous pen injector RxNorm: 483451 1.2 Milligram(s) SQ daily 09/29/201506/20 Inactive quanity sufficient for 30 day supply/DC byetta Victoza 2-Dereck 0.6 mg/0.1 mL (18 mg/3 mL) subcutaneous pen injector RxNorm: 558635 1.2 Milligram(s) SQ daily 08/18/201509/27 Inactive quanity sufficient for 30 day supply/DC byetta glipizide 10 mg tablet RxNorm: 926137 1 Tablet(s) PO BID 201506/20/2016 Inactive levothyroxine 50 mcg tablet RxNorm: 663968 1 Tablet(s) PO daily 07/28/2015 06/20/2016 Inactive felodipine ER 10 mg tablet,extended release 24 hr RxNorm: 257038 1 Tablet(s) PO daily 07/28/2015 06/20/2016 Inactive metoprolol succinate ER 50 mg tablet,extended release 24 hr RxNorm: 995667 1 Tablet(s) PO daily 07/28/2015 06/20/2016 Inactive Victoza 2-Dereck 0.6 mg/0.1 mL (18 mg/3 mL) subcutaneous pen injector RxNorm: 165546 0.6 Milligram(s) SQ daily 07/13/201508/17 Inactive quanity sufficient for 30 day supply/DC byetta Victoza 2-Dereck 0.6 mg/0.1 mL (18 mg/3 mL) subcutaneous pen injector RxNorm: 770838 0.6 Milligram(s) SQ daily 07/13/201507/12 Inactive quanity sufficient for 30 day supply amoxicillin 500 mg capsule RxNorm: 061393 1 Capsule(s) PO TID 07/06/2015 07/15/2015 Inactive Byetta 5 mcg/dose (250 mcg/mL)1.2 mL subcutaneous pen injector RxNorm: 181436 5 Microgram(s) SQ BID 07/06/20152015 Inactive amoxicillin 500 mg capsule RxNorm: 892431 1 Capsule(s) PO TID 06/17/2015 06/26/2015 Inactive prednisone 20 mg tablet RxNorm: 412371 1 Tablet(s) PO daily 06/21/2015 Inactive Pen Needle 32 gauge x 5/32" RxNorm: 1 injection Miscellaneous QW 06/04/2015 12/30/2015 Inactive Bydureon 2 mg/0.65 mL subcutaneous pen injector RxNorm: 6871792 2 Milligram(s) SQ BID 06/04/2015 07/05/2015 Inactive simvastatin 40 mg tablet RxNorm: 763307 1 Tablet(s) PO daily 02/25/2016 Inactive Vitamin B-12 1,000 mcg tablet RxNorm: 082877 1 Tablet(s) PO daily No Start Date Active Combivent 18 mcg-103 mcg/actuation aerosol inhaler RxNorm: 939451 1 INH daily as needed No Start Date Active magnesium oxide 400 mg tablet RxNorm: 942357 1 Tablet(s) PO daily No Start Date Active ferrous sulfate 325 mg (65 mg iron) tablet RxNorm: 805031 1 Tablet(s) PO daily No Start Date Active Flint 3 capsule RxNorm : Capsule(s) PO No Start Date Active Vitamin C 500 mg tablet RxNorm: 872358 1 Tablet(s) PO daily No Start Date Active Vitamin D3 5,000 unit tablet RxNorm: 461478 1 Tablet(s) PO daily No Start Date Active Aspirin Low Dose 81 mg tablet,delayed release RxNorm: 126777 Tablet(s) PO daily No Start Date Active Fish Oil 300 mg-1,000 mg capsule RxNorm: 784641 1 Capsule(s) PO daily No Start Date Active Senior-Jay oral RxNorm: oral No Start Date Active Eliquis 2.5 mg tablet RxNorm: 0137657 1 Tablet(s) PO BID No Start Date 07/31/2016 Inactive simvastatin 40 mg tablet RxNorm: 496294 1 Tablet(s) PO daily No Start Date 03/02/2015 Inactive Vitamin D3 1,000 unit tablet RxNorm: 856916 1 Tablet(s) PO daily No Start Date 08/17/2016 Inactive hydrochlorothiazide 12.5 mg tablet RxNorm: 937888 1 Tablet(s) PO daily No Start Date 02/21/2016 Inactive metoprolol succinate ER 50 mg tablet,extended release 24 hr RxNorm: 817543 1 Tablet(s) PO daily No Start Date 2015 Inactive Vitamin C RxNorm: PO No Start Date 2014 Inactive allopurinol 100 mg tablet RxNorm: 451232 1 Tablet(s) PO BID No Start Date 06/20/2016 Inactive metformin 1,000 mg tablet RxNorm: 425273 1 Tablet(s) PO BID No Start Date 06/03/2015 Inactive valsartan 320 mg tablet RxNorm: 176759 1 Tablet(s) PO daily No Start Date 10/17/2016 Inactive magnesium 250 mg tablet RxNorm: 1 Tablet(s) PO daily No Start Date 07/19/2016 Inactive Vitamin D3 5,000 unit tablet RxNorm: 357977 1 Tablet(s) PO daily No Start Date 07/19/2016 Inactive allopurinol 100 mg tablet RxNorm: 509288 1 Tablet(s) PO daily No Start Date 07/27/2015 Inactive levothyroxine 50 mcg tablet RxNorm: 291586 1 Tablet(s) PO daily No Start Date 07/27/2015 Inactive glipizide 10 mg tablet RxNorm: 260617 1 Tablet(s) PO BID No Start Date 07/27/2015 Inactive felodipine ER 10 mg tablet,extended release 24 hr RxNorm: 916551 1 Tablet(s) PO daily No Start Date [...] Observation Code Item Item Code Result Date %Hba1C Haz364 % HbA1c 44497-4 7.8 % 05/30/2017 %Hba1C Kzx846 Gluc Ave 177 mg/dL 05/30/2017 Metabolic Ord15 NA 139 mEq/L 05/30/2017 Metabolic [...] Metabolic Ord15 CALCIUM 9.4 mg/dL 05/30/2017 Microalbumin Bsx889 MicroAlb 97.5 mg/dL 05/30/2017 %Hba1C Uuj807 % HbA1c 81847-5 7.8 % 08/06/2015 %Hba1C Zlw134 Gluc Ave 177 mg/dL 08/06/2015 Comp Metabolic Pun687 NA 135 mEq/L 08/03/2015 Comp Metabolic Cjc832 K 4.7 mEq/L 08/03/2015 Comp Metabolic Hft902 CL 100 mEq/L 08/03/2015 Comp Metabolic Fow622 CO2 24.0 mEq/L 08/03/2015 Comp Metabolic Vsh482 ANION GAP 16 08/03/2015 Comp Metabolic Buh081 GLUCOSE 214 mg/dL 08/03/2015 Comp Metabolic Zuv658 Creat 1.5 mg/dL 08/03/2015 Comp Metabolic Cyy684 eGFR 37 ml/min/1.73m2 08/03/2015 Comp Metabolic Mja764 BUN 46 mg/dL 08/03/2015 Comp Metabolic Urb457 B/C Ratio 31.3 Ratio 08/03/2015 Comp Metabolic Vab395 CALCIUM 9.6 mg/dL 08/03/2015 Comp Metabolic Jjc742 ALK PHOS 51 U/L 08/03/2015 Comp Metabolic Ynw020 AST(SGOT) 25 U/L 08/03/2015 Comp Metabolic Skf239 ALT(SGPT) 24 U/L 08/03/2015 Comp Metabolic Fim695 BILI T 0.3 mg/dL 08/03/2015 Comp Metabolic Apt186 ALBUMIN 4.3 g/dL 08/03/2015 Comp Metabolic Wdb308 TPRO 7.1 g/dL 08/03/2015 Comp Metabolic Ggq557 GLOB 2.8 g/dL 08/03/2015 Comp Metabolic Jtk295 A/G Ratio 1.5 Ratio 08/03/2015 Comp Metabolic Ydy508 Osmo 288 mOsmo 08/03/2015 Cbc With Differential [...] 91.5 fl 08/03/2015 Cbc With Differential Ord2 [place]% 8.7 % 08/03/2015 Cbc With Differential Ord2 [...] 2.58 K/ul 08/03/2015 Cbc With Differential Ord2 [place] ABS# 0.9 K/ul 08/03/2015 Cbc With Differential Ord2 Eos ABS# 0.3 K/ul 08/03/2015 Cbc With Differential Ord2 Baso ABS# 0.0 K/ul 08/03/2015 Cbc With Differential Ord2 New Analyzer Notice Please note new ref ranges starting 07-15-2015 due to implemntation of new five part differential hematolgy analyzer. 08/03/2015 Lipase Nlc204 LIPASE 64 U/L 08/03/2015 Amylase Ord34 AMYLASE 60 U/L 08/03/2015 Review of Systems System Result [...] time 05/30/2017 None Full Exam - General 1994 [...] level 08/09/2016 None Full Exam - General 1995 Ears/Nose/Throat lips/teeth/gingiva Overall: benign lips 08/09/2016 None Full Exam - General 1994 Ears/Nose/Throat lips/teeth/gingiva Overall: normal dentition 08/09/2016 None Full Exam - General 1994 Ears/Nose/Throat lips/teeth/gingiva Overall: benign gingiva 08/09/2016 None Full Exam - General 1994 Ears/Nose/Throat lips/teeth/gingiva Overall: no masses 08/09/2016 None Full Exam - General 1994 Ears/Nose/Throat oral cavity/pharynx/larynx Overall: oral mucosa clear 08/09/2016 None Full Exam - General 1994 Ears/Nose/Throat oral cavity/pharynx/larynx Overall: oropharyngeal mucosa clear 08/09/2016 None Full Exam - General 1994 Ears/Nose/Throat oral cavity/pharynx/larynx Overall: no masses 08/09/2016 [...] accomodation 03/03/2015 None Full Exam - General 1994 Ears/Nose/Throat oral cavity/pharynx/larynx Overall: oropharyngeal mucosa clear 03/03/2015 None Full Exam - General 1994 Ears/Nose/Throat oral cavity/pharynx/larynx Overall: no masses 03/03/2015 None Full Exam - General 1994 Ears/Nose/Throat oral cavity/pharynx/larynx Overall: oral mucosa clear 03/03/2015 None Full Exam - General 1994 Ears/Nose/Throat lips/teeth/gingiva Overall: benign gingiva 03/03/2015 None Full Exam - General 1994 Ears/Nose/Throat lips/teeth/gingiva Overall: no masses 03/03/2015 None Full Exam - General 1994 Ears/Nose/Throat lips/teeth/gingiva Overall: normal dentition 03/03/2015 None [...] 1: 140/60 Code: 8480-6 BMI: 26.5 Code: 23934-7 Heart Rate 1: 87 bpm Height: 5'6" SpO2: 97% Weight: 164 lbs 05/30/2017 Blood Pressure 1: 128/66 Code : 8480-6 BMI: 26.6 Code : 21076-0 Heart Rate 1 : 66 bpm Height: 5'6" SpO2: 94% Weight: 165 lbs 01/26/2017 Blood Pressure 1: 140/82 Code : 8480-6 BMI: 26.3 Code : 61269-3 Heart Rate 1 : 73 bpm Height: 5'6" SpO2: 96% Waist Measure (cm): 84 cm Weight: 163 lbs 01/25/2017 Blood Pressure 1: 140/80 Code : 8480-6 BMI: 26.3 Code : 77979-0 Heart Rate 1 : 73 bpm Height: 5'6" SpO2: 96% Weight: 163 lbs 12/21/2016 Blood Pressure 1: 122/68 Code : 8480-6 BMI: 26.6 Code : 49410-5 Heart Rate 1 : 73 bpm Height: 5'6" SpO2: 97% Weight: 165 lbs 12/15/2016 Blood Pressure 1: 124/60 Code : 8480-6 BMI: 26.6 Code : 56402-7 Heart Rate 1 : 68 bpm Height: 5'6" SpO2: 96% Weight: 165 lbs 10/18/2016 Blood Pressure 1: 138/68 Code : 8480-6 BMI: 26.1 Code : 78166-8 Heart Rate 1 : 68 bpm Height: 5'6" SpO2: 96% Weight: 162 lbs 08/09/2016 Blood Pressure 1: 116/54 Code : 8480-6 BMI: 25.7 Code : 33264-0 Heart Rate 1 : 71 bpm Height: 5'6" SpO2: 97% Weight: 159 lbs 06/21/2016 Blood Pressure 1: 140/72 Code : 8480-6 BMI: 26.5 Code : 97693-8 Heart Rate 1 : 71 bpm Height: 5'6" SpO2: 98% Weight: 164 lbs 05/31/2016 Blood Pressure 1: 142/88 Code : 8480-6 BMI: 26.6 Code : 45323-8 Heart Rate 1 : 77 bpm Height: 5'6" SpO2: 97% Weight: 165 lbs 02/22/2016 Blood Pressure 1: 138/80 Code : 8480-6 BMI: 26.1 Code : 89512-8 Heart Rate 1 : 72 bpm Height: 5'6" SpO2: 97% Weight: 162 lbs 11/16/2015 Blood Pressure 1: 148/70 Code : 8480-6 BMI: 25.5 Code : 09943-2 Heart Rate 1 : 76 bpm Height: 5'6" SpO2: 97% Weight: 158 lbs 09/29/2015 Blood Pressure 1: 130/70 Code : 8480-6 BMI: 26.0 Code : 25248-9 Heart Rate 1 : 78 bpm Height: 5'6" SpO2: 98% Weight: 161 lbs 08/03/2015 Blood Pressure 1: 140/72 Code : 8480-6 BMI: 26.0 Code : 28462-7 Heart Rate 1 : 90 bpm Height: 5'6" SpO2: 97% Weight: 161 lbs 07/06/2015 Blood Pressure 1: 122/70 Code : 8480-6 BMI: 26.0 Code : 51892-4 Heart Rate 1 : 76 bpm Height: 5'6" SpO2: 96% Weight: 161 lbs 06/17/2015 Blood Pressure 1: 136/68 Code : 8480-6 BMI: 25.5 Code : 09664-4 Heart Rate 1 : 75 bpm Height: 5'6" SpO2: 98% Weight: 158 lbs 06/04/2015 Blood Pressure 1: 135/78 Code : 8480-6 BMI: 26.8 Code : 19029-3 Heart Rate 1 : 73 bpm Height: 5'6" SpO2: 98% Weight: 166 lbs 03/03/2015 Blood Pressure 1: 128/62 Code : 8480-6 BMI: 26.0 Code : 03342-3 Heart Rate 1 : 66 bpm Height: [...] Present Encounters Encounter Performer Location Codes Date ([id number]) 06484 EST. PATIENT, LEVEL IV Diagnosis: Type 2 diabetes mellitus without complications[ICD10: E11.9] Diagnosis: Essential (primary) hypertension[ICD10: I10] Diagnosis: Mixed hyperlipidemia[ICD10: E78.2] Melisa Hughes MD, [facility] CPT-4: 62662 07/19/2017 ([id number]) 09223 EST. 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 PATIENT, LEVEL IV Diagnosis: Type 2 diabetes mellitus without complications[ICD10: E11.9] Diagnosis: Generalized anxiety disorder[ICD10: F41.1] Diagnosis: Essential (primary) hypertension[ICD10: I10] Melisa Hughes MD, [facility] CPT-4: 57511 01/25/2017 05655 EST. PATIENT, LEVEL III Diagnosis: Pleurodynia[ICD10: R07.81] Virgie Hughes MD, [facility] CPT-4 : 42707 12/21/2016 ([id number]) 12470 EST. PATIENT, LEVEL IV Diagnosis: Generalized anxiety disorder[ICD10: F41.1] Diagnosis: Essential (primary) hypertension[ICD10: I10] Diagnosis: Low back pain[ICD10: M54.5] Diagnosis: Urinary tract infection, site not specified[ICD10: N39.0] Diagnosis: Type 2 diabetes mellitus without complications[ICD10: E11.9] Melisa Hughes MD, [facility] CPT-4: 57879 12/15/2016 ([id number]) 11734 EST. PATIENT, LEVEL IV Diagnosis: Type 2 diabetes mellitus without complications[ICD10: E11.9] Diagnosis: Essential (primary) hypertension[ICD10: I10] Diagnosis: Other insomnia[ICD10: G47.09] Melisa Hughes MD, [facility] CPT- 4: 15984 10/18/2016 ([id number]) 35270 EST. PATIENT, LEVEL IV Diagnosis: Essential (primary) hypertension[ICD10: I10] Diagnosis: Type 2 diabetes mellitus without complications[ICD10: E11.9] Melisa Hughes MD [facility] CPT-4: 48137 08/09/2016 ([id number]) 12542 EST. PATIENT, LEVEL IV Diagnosis: Type 2 diabetes mellitus without complications[ICD10: E11.9] Diagnosis: Essential (primary) hypertension[ICD10: I10] Diagnosis: Mixed hyperlipidemia[ICD10: E78.2] Diagnosis: Generalized anxiety disorder[ICD10: F41.1] Melisa Hughes MD, [facility] CPT-4: 29670 06/21/2016 ([id number]) 32490 EST. PATIENT, LEVEL III Diagnosis: Acute follicular conjunctivitis, bilateral[ICD10: H10.013] Aleena Hughes MD, [facility] CPT-4: 64132 05/31/2016 ([id number]) 66861 EST. 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 PATIENT, LEVEL IV Diagnosis: Generalized abdominal pain[ICD10: R10.84] Diagnosis: Other cholelithiasis without obstruction[ICD10: K80.80] ANKIT Olson MD CPT-4: 67952 08/03/2015 ([id number]) 67762 EST. 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 PATIENT, LEVEL IV Diagnosis: Acute recurrent maxillary sinusitis[ICD10: J01.01] Diagnosis: Acute laryngopharyngitis[ICD10: J06.0] Diagnosis: Gastro-esophageal reflux disease without esophagitis[ICD10: K21.9] Diagnosis: Other specified diseases of inner ear, bilateral[ICD10: H83.8X3] Virgie Hughes MD, [facility] CPT-4: 67155 06/17/2015 ([id number]) 06044 EST. 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 I have recommended for the patient to have follow up labs prior to the next office visit. The patient has been instructed to continue with current medications as previously directed, continue with regular FSBS monitoring to assure continued control of diabetes. Pt to call for any acute concerns, complaints, or if the blood glucose readings are starting to become less controlled. Pt to increase basaglar to 22 units - and after 3 days if the blood glucose averages are below 150, then increase up to 26 units x 3 days and if the blood glucose is on average greater than 150, increase up to 30 units, if the blood glucose is still at or above 150 after 3 days, then increase up to 34 units and then call the office with your blood glucose averages, let the office staff know which end dose of basaglar your are taking. Hypertension - well controlled - continue with current medications, continue with no added salt diet. Pt has been encouraged to exercise daily. The pt has been advised to call the office if there are any acute concerns about change in blood pressure readings at home. Bruise of right bicep - continue with monitoring, call if not improving. 07/19/2017 Patient Education: Patient Medication Summary Completed 07/19/2017 Visit Plan: Diabetes Mellitus - per patient report - not optimally controlled - I have recommended labs today. The patient has been instructed to continue with current medications as previously directed, continue with regular FSBS monitoring to assure continued control of diabetes. Pt to call for any acute concerns, complaints, or if the blood glucose readings are starting to become less controlled. Hypertension - well controlled - continue with current medications, continue with no added salt diet. Pt has been encouraged to exercise daily. The pt has been advised to call the office if there are any acute concerns about change in blood pressure readings at home. Hyperlipidemia - pt has been counseled about appropriate diet, exercise, and need for low fat food choices. I have discussed the need for the patient to take medications as prescribed. If the patient has negative side effects from the medication, they are to CALL the office and not abruptly discontinue the medication without discussion with a practitioner in the office. We will check labs in 3-6 months for follow up on the patient's chronic medical problem and to assure normal liver response to medications. 05/30/2017 Appointment: Melisa Hughes WPtel: [address] [place], [place] [phone] (15 min) Moderate 05/30/2017 Patient Education: Patient Medication Summary Completed 05/30/2017 Visit Plan: Medicare Exam - today we discussed the patients past history, immunizations, preventative exams/evaluations - colonoscopy, fecal occult blood testing, routine labs for renal function, glucose, cholesterol, osteoporosis evaluations, cardiovascular testing and cancer screenings. We have also discussed mental health and the signs/symptoms of depression. The patient was advised of home safety evaluations and the need to make sure that as the aging process continues, we need to be aware of different ways to make the home a safer place to reside. The patient has also been counseled that exercise is necessary - and of utmost importance as we age to help decrease fall risk and to maintain independence in the home. Today we discussed the need for the patient to create paperwork for Advanced directives as well as for the patient to provide this office with a copy of her DOPA paperwork for health care surrogate. 01/26/2017 Appointment: Virgie Holbrook WPtel: [id number] [place] [address] - Annual Wellness Visit 01/26/2017 Patient Education: Patient Medication Summary Completed 01/26/2017 Visit Plan: Hypertension - well controlled - continue with current medications, continue with no added salt diet. Pt has been encouraged to exercise daily. The pt has been advised to call the office if there are any acute concerns about change in blood pressure readings at home. Diabetes Mellitus - controlled - per recent FSBS reports. I have recommended for the patient to have follow up labs prior to the next office visit. The patient has been instructed to continue with current medications as previously directed, continue with regular FSBS monitoring to assure continued control of diabetes. Pt to call for any acute concerns, complaints, or if the blood glucose readings are starting to become less controlled. Chronic Depression and anxiety - the pt has symptoms of chronic anxiety and depression that have been fairly well controlled since the last office visit. The pt has expected periods of exacerbation with abatement of the symptoms with change in situational exposure. No change in current medications. 01/25/2017 Appointment: Melisa Hughes WPtel: [phone] [facility] (15 min) Moderate 01/25/2017 Patient Education: Patient Medication Summary Completed 01/25/2017 Appointment: Melisa Hughes WPtel: [facility]8 [facility] [place] (15 min) Moderate 01/17/2017 Referral: Giuliano Santo Arrive at 12:40 PM. Patient informed. Referral info faxed. Completed 01/17/2017 Visit Plan: Right rib pain - will send for x-ray. Pt is to Turn, Cough, and Deep breath to help prevent pneumonia, discussed 10 deep breaths an hour to help prevent pneumonia. The pt is to use prn antiinflammatories to manage acute pain. The patient is to call the office if the pain is worsening or does not improve. 12/21/2016 Appointment: [facility] Hol[facility] [place] (30 min) Complex 12/21/2016 Patient Education: Patient Medication Summary Completed 12/21/2016 Referral: External, Ordering Provider Patient informed. Script faxed. Completed 12/20/2016 Visit Plan: Back pain - lumbar spine disc degeneration - we will do a referral to dr. santo for injections and physical therapy at [place] or [facility] if we cannot get you in to [place]. HTN - stable continue with current medications. UTI - antibiotic not covering infeciton - recommended pt to stop current antibiotic (keflex) and start on bactrim ds bid x 7 days. Diabetes Mellitus - controlled - per recent FSBS reports. I have recommended for the patient to have follow up labs prior to the next office visit. The patient has been instructed to continue with current medications as previously directed, continue with regular FSBS monitoring to assure continued control of diabetes. Pt to call for any acute concerns, complaints, or if the blood glucose readings are starting to become less controlled. 12/15/2016 Appointment: [facility] Hughes [facility]el[phone] [facility] [place] (15 min) Moderate 12/15/2016 Patient Education: Patient Medication Summary Completed 12/15/2016 Care Plan: Referral Order SNOMED-CT : [id number] Pending 12/15/2016 Care Plan: Referral Order SNOMED-CT : [id number] Pending 12/15/2016 Visit Plan: Diabetes Mellitus - controlled - per recent FSBS reports. I have recommended for the patient to have follow up labs prior to the next office visit. The patient has been instructed to continue with current medications as previously directed, continue with regular FSBS monitoring to assure continued control of diabetes. Pt to call for any acute concerns, complaints, or if the blood glucose readings are starting to become less controlled. last hgba1c was 6.1 - on 08/12/16 Hypertension - well controlled - continue with current medications, continue with no added salt diet. Pt has been encouraged to exercise daily. The pt has been advised to call the office if there are any acute concerns about change in blood pressure readings at home. Insomnia - Pt has been advised to increase the light in the house during the day, and start dimming the lights during the evening hours. Pt has been advised to cut out caffeine after 5pm. Daytime napping worsens night time insomnia. 10/18/2016 Appointment: Melisa Hughes WPtel: 101 [facility] (15 min) Moderate 10/18/2016 Patient Education: Patient Medication Summary Completed 10/18/2016 Visit Plan: Hypertension - well controlled - continue with current medications, continue with no added salt diet. Pt has been encouraged to exercise daily. The pt has been advised to call the office if there are any acute concerns about change in blood pressure readings at home. Diabetes Mellitus - controlled - per recent FSBS reports. I have recommended for the patient to have follow up labs prior to the next office visit. The patient has been instructed to continue with current medications as previously directed, continue with regular FSBS monitoring to assure continued control of diabetes. Pt to call for any acute concerns, complaints, or if the blood glucose readings are starting to become less controlled. Anemia - recommended extra iron daily take independent of meals Right hip OA - post-op - continue with care and treatment per Dr. Ruiz - pt has been receiving home health - continue with therapy as indicated. 08/09/2016 Appointment: Melisa Hughes WPtel: [phone] [facility] (15 min) Moderate 08/09/2016 Patient Education: Patient Medication Summary Completed 08/09/2016 Visit Plan: Hypertension - well controlled - continue with current medications, continue with no added salt diet. Pt has been encouraged to exercise daily. The pt has been advised to call the office if there are any acute concerns about change in blood pressure readings at home. Diabetes Mellitus - controlled - per recent FSBS reports. I have recommended for the patient to have follow up labs prior to the next office visit. The patient has been instructed to continue with current medications as previously directed, continue with regular FSBS monitoring to assure continued control of diabetes. Pt to call for any acute concerns, complaints, or if the blood glucose readings are starting to become less controlled. Hyperlipidemia - pt has been counseled about appropriate diet, exercise, and need for low fat food choices. I have discussed the need for the patient to take medications as prescribed. If the patient has negative side effects from the medication, they are to CALL the office and not abruptly discontinue the medication without discussion with a practitioner in the office. We will check labs in 3-6 months for follow up on the patient's chronic medical problem and to assure normal liver response to medications. Planning on surgery for right hip in the next few weeks - July 11. Anxiety - continue with lexapro 06/21/2016 Appointment: Melisa Hughes WPtel: [phone] [facility] (15 min) Moderate 06/21/2016 Patient Education: Patient Medication Summary Completed 06/21/2016 Care Plan: SCREENINGMAMMOGRAPHYDIGITAL LOINC : 95673-6 Pending 06/21/2016 Visit Plan: Conjunctivitis - rx for eye drops/lube sent electronically to the patient's pharmacy. The patient has been instructed to cleanse affected eye with warm washcloth, then place medication into affected eye four times daily. 05/31/2016 Appointment: Aleena Melton [facility]Ptel: [phone] [facility] (15 min) Moderate 05/31/2016 Patient Education: Patient Medication Summary Completed 05/31/2016 Referral: Giuliano Joseph Arrive at 0925. Patient informed. Completed 02/25/2016 Visit Plan: Hypertension - well controlled - continue with current medications, continue with no added salt diet. Pt has been encouraged to exercise daily. The pt has been advised to call the office if there are any acute concerns about change in blood pressure readings at home. Arthritis- occasionally uncontrolled symptoms- recommend pt to take antiinflammatory as directed for pain control. Use tylenol for break through pain symptoms. Diabetes Mellitus - controlled - per recent FSBS reports. I have recommended for the patient to have follow up labs prior to the next office visit. The patient has been instructed to continue with current medications as previously directed, continue with regular FSBS monitoring to assure continued control of diabetes. Pt to call for any acute concerns, complaints, or if the blood glucose readings are starting to become less controlled. 02/22/2016 Appointment: Melisa Hughes WPtel: [phone] [facility]66[facility] (15 min) Moderate 02/22/2016 Patient Education: Patient Medication Summary Completed 02/22/2016 Patient Education: Hypertension Completed 02/22/2016 Care Plan: Referral Order SNOMED-CT : [id number] Pending 02/22/2016 Care Plan: Referral Order SNOMED-CT : [id number] Pending 02/22/2016 Visit Plan: Sacroiliitis - referral to Dr. Covarrubias at [facility] for injections- sample of voltaren gel given to patient to use topically until she can be seen by the specialist - hopefully she will get a little bit of anti-inflammation with the topical medication - enough to get her through to injections in the SI space. Pt is to call if the symptoms do not improve or if they worsen. HTN - elevated due to uncontrolled pain. Vaginal prolapse - referral to Dr. Cleveland for eval for pessary. 11/16/2015 Patient Education: Patient Medication Summary Completed 11/16/2015 Care Plan: Referral Order SNOMED-CT : [id number] Pending 11/16/2015 Appointment: Melisa Hughes WPtel: [facility]5 [facility] (15 min) Moderate 2015 Visit Plan: Diabetes Mellitus - controlled - per recent FSBS reports. I have recommended for the patient to have follow up labs prior to the next office visit. The patient has been instructed to continue with current medications as previously directed, continue with regular FSBS monitoring to assure continued control of diabetes. Pt to call for any acute concerns, complaints, or if the blood glucose readings are starting to become less controlled. Hypertension - well controlled - continue with current medications, continue with no added salt diet. Pt has been encouraged to exercise daily. The pt has been advised to call the office if there are any acute concerns about change in blood pressure readings at home. Hypothyroidism - pt with chronic hypothyroidism, continue with current medication, will monitor pt to signs or symptoms of lack of adequate supplementation. Pt is to continue with current dose of medication unless directed otherwise. Check labs at regular intervals wither q 3 months or q 6 months based on previous levels of control. 09/29/2015 Appointment: Melisa Hughes WPtel: [phone] [facility] (15 min) Moderate 09/29/2015 Patient Education: Patient Medication Summary Completed 09/29/2015 Patient Education: Hypertension Completed 09/29/2015 Appointment: (30 min) Complex 09/03/2015 Patient Education: Patient Medication Summary Completed 08/05/2015 Visit Plan: abdominal pain/nausea - will order labs and CT scan, pt is to notify clinic if symptoms do not improve, if they worsen, or with any acute concerns. 08/03/2015 Appointment: (30 min) Complex 08/03/2015 Patient Education: Patient Medication Summary Completed 08/03/2015 Visit Plan: Hypertension - well controlled - continue with current medications, continue with no added salt diet. Pt has been encouraged to exercise daily. The pt has been advised to call the office if there are any acute concerns about change in blood pressure readings at home. Diabetes Mellitus - controlled - per recent FSBS reports. I have recommended for the patient to have follow up labs prior to the next office visit. The patient has been instructed to continue with current medications as previously directed, continue with regular FSBS monitoring to assure continued control of diabetes. Pt to call for any acute concerns, complaints, or if the blood glucose readings are starting to become less controlled. change from bydureon and start on byetta - due to GI upset. Ear infection - RX for amoxicillin 07/06/2015 Appointment: Melisa Hughes WPtel: [phone] [facility] (15 min) Moderate 07/06/2015 Patient Education: Patient Medication Summary Completed 07/06/2015 Patient Education: Hypertension Completed 07/06/2015 Visit Plan: Sinusitis - Pt has acute infection - pain in face, maxillary region, Pt informed to use decongestant, RX given to patient, sinus rinses also recommended. Call if symptoms do not show improvement. Pt complained of intermittent dizziness, denies head trauma, pt instructed to notify clinic if symptoms do not improve with treatment of sinus infection. URI - Pt advised to increase fluids, vitamin C. Discussed natural and expected course of this diagnosis and need to alert me if symptoms do not follow expected course, or if any worse. RX sent to patient's pharmacy. Esophageal Reflux - the patient has been counseled against excessive intake of caffeine, spicy foods, peppermint, and cinnamon - all of which can exacerbate esophageal reflux. The patient is to take medications as prescribed and call the office if the symptoms are not improving. 06/17/2015 Appointment: (15 min) Moderate 06/17/2015 Patient Education: Patient Medication Summary Completed 06/17/2015 Visit Plan: Diabetes Mellitus - Uncontrolled - per recent FSBS reports. I have recommended for the patient to have follow up labs prior to the next office visit. The patient has been instructed to continue with current medications as previously directed, continue with regular FSBS monitoring to assure continued control of diabetes. Pt to call for any acute concerns, complaints, or if the blood glucose readings are starting to become less controlled. I have recommended for the patient to follow more strictly to the diabetic diet as discussed in clinic to allow for greater blood glucose control. Hypertension - well controlled - continue with current medications, continue with no added salt diet. Pt has been encouraged to exercise daily. The pt has been advised to call the office if there are any acute concerns about change in blood pressure readings at home. 06/04/2015 Appointment: Melisa Hughes WPtel: [address] [place], [place] [address] (15 min) Moderate 06/04/2015 Patient Education: Patient Medication Summary Completed 06/04/2015 Patient Education: Hypertension Completed 06/04/2015 Visit Plan: CKD- will obtain labs from aviation ordn[employer] officer in [place]. She saw the PA, Liya Ridley, most recently. We have called and left a message to have these faxed over. DM- she is following an locker attendant in [place] who manages her labs and medications CAD- following Dr. Pagan in [facility]. She has had two stents placed in 2008 and 2009. She has an appt. with him coming up soon. Dry skin/sun damage- continue to use the skin cream from home bladder prolapse- has been there since her hysterectomy. She has not seen anybody for this. Will refer her to specialist to get her muscles strengthened to possibly prevent needing procedures or medications. Hypertension - well controlled - continue with current medications, continue with no added salt diet. Pt has been encouraged to exercise daily. The pt has been advised to call the office if there are any acute concerns about change in blood pressure readings at home. 03/03/2015 Appointment: ReginaMelisa WPtel: [phone] [facility]6[address] New Patient 03/03/2015 Patient Education: Patient Medication Summary Completed 03/03/2015 Patient Education: Hypertension Completed 03/03/2015 Referral: External, Ordering Provider Referral Appointment Requested Referral: Josesito Covarrubias WPtel: Referral Initiated Referral: Josesito Covarrubias WPtel: Referral Appointment Requested Referral: Giuliano Santo Referral Completed Referral: Giuliano Joseph Referral Appointment Requested Referral: Linnea Cleveland WPtel: [phone] [facility] [address]66[facility] Referral Appointment Requested Referral: Linnea Cleveland WPtel: [facility] Referral Completed Instructions Comment . Sinusitis - Pt has acute infection - pain in face, maxillary region, Pt informed to use decongestant, RX given to patient, sinus rinses also recommended. Call if symptoms do not show improvement. Pt complained of intermittent dizziness, denies head trauma, pt instructed to notify clinic if symptoms do not improve with treatment of sinus infection. URI - Pt advised to increase fluids, vitamin C. Discussed natural and expected course of this diagnosis and need to alert me if symptoms do not follow expected course, or if any worse. RX sent to patient's pharmacy. Esophageal Reflux - the patient has been counseled against excessive intake of caffeine, spicy foods, peppermint, and cinnamon - all of which can exacerbate esophageal reflux. The patient is to take medications as prescribed and call the office if the symptoms are not improving. increase basaglar to 22 units - and after 3 days if the blood glucose averages are below 150, then increase up to 26 units x 3 days and if the blood glucose is on average greater than 150, increase up to 30 units, if the blood glucose is still at or above 150 after 3 days, then increase up to 34 units and then call the office with your blood glucose averages, let the office staff know which end dose of basaglar your are taking. . Diabetes Mellitus - controlled - per recent FSBS reports. I have recommended for the patient to have follow up labs prior to the next office visit. The patient has been instructed to continue with current medications as previously directed, continue with regular FSBS monitoring to assure continued control of diabetes. Pt to call for any acute concerns, complaints, or if the blood glucose readings are starting to become less controlled. Pt to increase basaglar to 22 units - and after 3 days if the blood glucose averages are below 150, then increase up to 26 units x 3 days and if the blood glucose is on average greater than 150, increase up to 30 units, if the blood glucose is still at or above 150 after 3 days, then increase up to 34 units and then call the office with your blood glucose averages, let the office staff know which end dose of basaglar your are taking. Hypertension - well controlled - continue with current medications, continue with no added salt diet. Pt has been encouraged to exercise daily. The pt has been advised to call the office if there are any acute concerns about change in blood pressure readings at home. Bruise of right bicep - continue with monitoring, call if not improving. . Diabetes Mellitus - controlled - per recent FSBS reports. I have recommended for the patient to have follow up labs prior to the next office visit. The patient has been instructed to continue with current medications as previously directed, continue with regular FSBS monitoring to assure continued control of diabetes. Pt to call for any acute concerns, complaints, or if the blood glucose readings are starting to become less controlled. Hypertension - well controlled - continue with current medications, continue with no added salt diet. Pt has been encouraged to exercise daily. The pt has been advised to call the office if there are any acute concerns about change in blood pressure readings at home. Hypothyroidism - pt with chronic hypothyroidism, continue with current medication, will monitor pt to signs or symptoms of lack of adequate supplementation. Pt is to continue with current dose of medication unless directed otherwise. Check labs at regular intervals wither q 3 months or q 6 months based on previous levels of control. . Hypertension - well controlled - continue with current medications, continue with no added salt diet. Pt has been encouraged to exercise daily. The pt has been advised to call the office if there are any acute concerns about change in blood pressure readings at home. Diabetes Mellitus - controlled - per recent FSBS reports. I have recommended for the patient to have follow up labs prior to the next office visit. The patient has been instructed to continue with current medications as previously directed, continue with regular FSBS monitoring to assure continued control of diabetes. Pt to call for any acute concerns, complaints, or if the blood glucose readings are starting to become less controlled. Anemia - recommended extra iron daily take independent of meals Right hip OA - post-op - continue with care and treatment per Dr. Ruiz - pt has been receiving home health - continue with therapy as indicated. . Sacroiliitis - referral to Dr. Covarrubias at [facility] for injections- sample of voltaren gel given to patient to use topically until she can be seen by the specialist - hopefully she will get a little bit of anti- inflammation with the topical medication - enough to get her through to injections in the SI space. Pt is to call if the symptoms do not improve or if they worsen. HTN - elevated due to uncontrolled pain. Vaginal prolapse - referral to Dr. Cleveland for eval for pessary. . abdominal pain/nausea - will order labs and CT scan, pt is to notify clinic if symptoms do not improve, if they worsen, or with any acute concerns. . Medicare Exam - today we discussed the patients past history, immunizations, preventative exams/evaluations - colonoscopy, fecal occult blood testing, routine labs for renal function, glucose, cholesterol, osteoporosis evaluations, cardiovascular testing and cancer screenings. We have also discussed mental health and the signs/symptoms of depression. The patient was advised of home safety evaluations and the need to make sure that as the aging process continues, we need to be aware of different ways to make the home a safer place to reside. The patient has also been counseled that exercise is necessary - and of utmost importance as we age to help decrease fall risk and to maintain independence in the home. Today we discussed the need for the patient to create paperwork for Advanced directives as well as for the patient to provide this office with a copy of her DOPA paperwork for health care surrogate. Continue to use skin creams for a few months. We want to see how your skin has changed from using this. Begin taking vitamin B12 liquid. Take 2000 mcg at a time. 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 . CKD- will obtain labs from aviation ordnance officer in [place]. She saw the PA, Liya Ridley, most recently. We have called and left a message to have these faxed over. DM- she is following an locker attendant in [place] who manages her labs and medications CAD- following Dr. Pagan in [facility]. She has had two stents placed in 2008 and 2009. She has an appt. with him coming up soon. Dry skin/sun damage- continue to use the skin cream from home bladder prolapse- has been there since her hysterectomy. She has not seen anybody for this. Will refer her to specialist to get her muscles strengthened to possibly prevent needing procedures or medications. Hypertension - well controlled - continue with current medications, continue with no added salt diet. Pt has been encouraged to exercise daily. The pt has been advised to call the office if there are any acute concerns about change in blood pressure readings at home. . Conjunctivitis - rx for eye drops/lube sent electronically to the patient's pharmacy. The patient has been instructed to cleanse affected eye with warm washcloth, then place medication into affected eye four times daily. dr[place] [id number] states in [place] - will do referral for back injections stop the keflex and start on the bactrim ds twice daily x 7 days. we will do a referral to dr. santo for injections and physical therapy at [place] or [facility] if we cannot get you in to [place] . Back pain - lumbar spine disc degeneration - we will do a referral to dr. santo for injections and physical therapy at [place] or [facility] if we cannot get you in to [place]. HTN - stable continue with current medications. UTI - antibiotic not covering infeciton - recommended pt to stop current antibiotic (keflex) and start on bactrim ds bid x 7 days. Diabetes Mellitus - controlled - per recent FSBS reports. I have recommended for the patient to have follow up labs prior to the next office visit. The patient has been instructed to continue with current medications as previously directed, continue with regular FSBS monitoring to assure continued control of diabetes. Pt to call for any acute concerns, complaints, or if the blood glucose readings are starting to become less controlled. . Hypertension - well controlled - continue with current medications, continue with no added salt diet. Pt has been encouraged to exercise daily. The pt has been advised to call the office if there are any acute concerns about change in blood pressure readings at home. Diabetes Mellitus - controlled - per recent FSBS reports. I have recommended for the patient to have follow up labs prior to the next office visit. The patient has been instructed to continue with current medications as previously directed, continue with regular FSBS monitoring to assure continued control of diabetes. Pt to call for any acute concerns, complaints, or if the blood glucose readings are starting to become less controlled. Chronic Depression and anxiety - the pt has symptoms of chronic anxiety and depression that have been fairly well controlled since the last office visit. The pt has expected periods of exacerbation with abatement of the symptoms with change in situational exposure. No change in current medications. change from bydureon and start on byetta - due to GI upset. . Hypertension - well controlled - continue with current medications, continue with no added salt diet. Pt has been encouraged to exercise daily. The pt has been advised to call the office if there are any acute concerns about change in blood pressure readings at home. Diabetes Mellitus - controlled - per recent FSBS reports. I have recommended for the patient to have follow up labs prior to the next office visit. The patient has been instructed to continue with current medications as previously directed, continue with regular FSBS monitoring to assure continued control of diabetes. Pt to call for any acute concerns, complaints, or if the blood glucose readings are starting to become less controlled. change from bydureon and start on byetta - due to GI upset. Ear infection - RX for amoxicillin . Hypertension - well controlled - continue with current medications, continue with no added salt diet. Pt has been encouraged to exercise daily. The pt has been advised to call the office if there are any acute concerns about change in blood pressure readings at home. Arthritis- occasionally uncontrolled symptoms- recommend pt to take antiinflammatory as directed for pain control. Use tylenol for break through pain symptoms. Diabetes Mellitus - controlled - per recent FSBS reports. I have recommended for the patient to have follow up labs prior to the next office visit. The patient has been instructed to continue with current medications as previously directed, continue with regular FSBS monitoring to assure continued control of diabetes. Pt to call for any acute concerns, complaints, or if the blood glucose readings are starting to become less controlled. take 2 a pill daily x 1 week then 1/2 pill every other day x 3 days the ALIGN - take 1 pill twice a day x 1 week then decrease to one pill daily x 3 more weeks. Insomnia - Pt has been advised to increase the light in the house during the day , and start dimming the lights during the evening hours. Start on MELATONIN ER 10mg 30minutes before going to bed. Diabetes Mellitus - controlled - per recent FSBS reports. I have recommended for the patient to have follow up labs prior to the next office visit. The patient has been instructed to continue with current medications as previously directed, continue with regular FSBS monitoring to assure continued control of diabetes. Pt to call for any acute concerns, complaints, or if the blood glucose readings are starting to become less controlled. last hgba1c was 6.1 - on 08/12/16 Hypertension - well controlled - continue with current medications, continue with no added salt diet. Pt has been encouraged to exercise daily. The pt has been advised to call the office if there are any acute concerns about change in blood pressure readings at home. Insomnia - Pt has been advised to increase the light in the house during the day , and start dimming the lights during the evening hours. Pt has been advised to cut out caffeine after 5pm. Daytime napping worsens night time insomnia. . Hypertension - well controlled - continue with current medications, continue with no added salt diet. Pt has been encouraged to exercise daily. The pt has been advised to call the office if there are any acute concerns about change in blood pressure readings at home. Diabetes Mellitus - controlled - per recent FSBS reports. I have recommended for the patient to have follow up labs prior to the next office visit. The patient has been instructed to continue with current medications as previously directed, continue with regular FSBS monitoring to assure continued control of diabetes. Pt to call for any acute concerns, complaints, or if the blood glucose readings are starting to become less controlled. Hyperlipidemia - pt has been counseled about appropriate diet, exercise, and need for low fat food choices. I have discussed the need for the patient to take medications as prescribed. If the patient has negative side effects from the medication, they are to CALL the office and not abruptly discontinue the medication without discussion with a practitioner in the office. We will check labs in 3-6 months for follow up on the patient's chronic medical problem and to assure normal liver response to medications. Planning on surgery for right hip in the next few weeks - July 11. Anxiety - continue with lexapro . Diabetes Mellitus - Uncontrolled - per recent FSBS reports. I have recommended for the patient to have follow up labs prior to the next office visit. The patient has been instructed to continue with current medications as previously directed, continue with regular FSBS monitoring to assure continued control of diabetes. Pt to call for any acute concerns, complaints, or if the blood glucose readings are starting to become less controlled. I have recommended for the patient to follow more strictly to the diabetic diet as discussed in clinic to allow for greater blood glucose control. Hypertension - well controlled - continue with current medications, continue with no added salt diet. Pt has been encouraged to exercise daily. The pt has been advised to call the office if there are any acute concerns about change in blood pressure readings at home. . Diabetes Mellitus - per patient report - not optimally controlled - I have recommended labs today. The patient has been instructed to continue with current medications as previously directed, continue with regular FSBS monitoring to assure continued control of diabetes. Pt to call for any acute concerns, complaints, or if the blood glucose readings are starting to become less controlled. Hypertension - well controlled - continue with current medications, continue with no added salt diet. Pt has been encouraged to exercise daily. The pt has been advised to call the office if there are any acute concerns about change in blood pressure readings at home. Hyperlipidemia - pt has been counseled about appropriate diet, exercise, and need for low fat food choices. I have discussed the need for the patient to take medications as prescribed. If the patient has negative side effects from the medication, they are to CALL the office and not abruptly discontinue the medication without discussion with a practitioner in the office. We will check labs in 3-6 months for follow up on the patient's chronic medical problem and to assure normal liver response to medications. . Right rib pain - will send for x-ray. Pt is to Turn, Cough, and Deep breath to help prevent pneumonia, discussed 10 deep breaths an hour to help prevent pneumonia. The pt is to use prn antiinflammatories to manage acute pain. The patient is to call the office if the pain is worsening or does not improve.
--- OUTSIDE RECORDS SUMMARY | 2017-08-17 12:41 | XMS REPORT | CCD ---
Author Author Melisa Hughes MD, [facility] Address [address] [place] [address] Phone Care Team Providers Care Garnett Mechanic Name Role Phone PP Unavailable CCM Unavailable Summary Purpose Interface Exchange Insurance Providers Payer name Policy type / Coverage type Covered democrat ID Effective Begin Date Effective End Date WPS Medicare Part B Medicare Part B [id number] Unknown Unknown GEHA Medicare Part B [id number] Unknown Unknown Family history Grandmother Diagnosis Age [...] Retired [employer] 03/03/[address]: 901713232 Never smoker 03/03/[address]: 580610367 Never drinks alcohol 03/03/2015 Allergies, Adverse Reactions, [...] KwikPen 100 unit/mL (3 mL) subcutaneous RxNorm: 5685091 30 Unit(s) SQ QPM - pt to increase dose by4 units as directed by physician for goal of 30 units 07/26/2017 07/29/2017 Active Basaglar KwikPen 100 unit/mL (3 mL) subcutaneous RxNorm: 6509701 30 Unit(s) SQ QPM - pt to increase dose by4 units as directed by physician for goal of 30 units 07/19/2017 07/22/2017 Inactive metoprolol succinate ER 50 mg tablet,extended release 24 hr RxNorm: 647729 TAKE 1 TABLET BY MOUTH EVERY DAY 07/11/201708/2018 Active felodipine ER 10 mg tablet,extended release 24 hr RxNorm: 151066 TAKE 1 TABLET BY MOUTH EVERY DAY 07/10/2017 04/05/2018 Active Basaglar KwikPen 100 unit/mL (3 mL) subcutaneous RxNorm: 5307879 14 Unit(s) SQ QPM 07/10/2017 07/13/2017 Inactive levothyroxine 50 mcg tablet RxNorm: 690463 TAKE 1 TABLET BY MOUTH DAILY 06/29/2017 09/26/2017 Active simvastatin 40 mg tablet RxNorm: 772814 TAKE 1 TABLET BY MOUTH EVERY DAY 06/19/2017 06/13/2018 Active Victoza 2-Dereck 0.6 mg/0.1 mL (18 mg/3 mL) subcutaneous pen injector RxNorm: 922825 INJECT 1.8 MILLIGRAM SUBCUTANEOUSLY DAILY 06/15/2017 12/11/2017 Active Basaglar KwikPen 100 unit/mL (3 mL) subcutaneous RxNorm: 3066779 10 Unit(s) SQ QPM 05/31/2017 05/30/2017 Inactive Basaglar KwikPen 100 unit/mL (3 mL) subcutaneous RxNorm: 1899471 10 Unit(s) SQ QPM 05/31/2017 07/09/2017 Inactive Pen Needle 32 gauge x 5/32" RxNorm: USE WITH INSULIN INJECTIONS WEEKLY 02/28/2017 11/24/2017 Active Victoza 2-Dereck 0.6 mg/0.1 mL (18 mg/3 mL) subcutaneous pen injector RxNorm: 929589 1.8 Milligram(s) SQ daily 02/09/201706/14 Inactive quanity sufficient for 30 day supply- hold for refill escitalopram 10 mg tablet RxNorm: 148598 1 Tablet(s) PO QPM 01/19/2018 Active sulfamethoxazole 800 mg-trimethoprim 160 mg tablet RxNorm: 489564 1 Tablet(s) PO BID 12/15/2016 12/21/2016 Inactive Eliquis 2.5 mg tablet RxNorm: 8206059 1 Tablet(s) PO BID 201610/17/2016 Inactive hydrocodone 10 mg-acetaminophen 325 mg tablet RxNorm: 675081 1 Tablet(s) PO Q4H as needed for pain 07/25/2016 08/08/2016 Inactive tramadol 50 mg tablet RxNorm: 753853 1-2 Tablet(s) PO Q6 as needed for pain 07/19/2016 08/09/2016 Inactive Pen Needle 32 gauge x " RxNorm: USE WITH INSULIN INJECTIONS WEEKLY 07/01/2016 02/27/2017 Inactive allopurinol 100 mg tablet RxNorm: 216830 1 Tablet(s) PO BID 06/15/2017 Inactive hydrochlorothiazide 12.5 mg tablet RxNorm: 613849 1 Tablet(s) PO 3 x week 06/21/2016 06/15/2017 Inactive glipizide 10 mg tablet RxNorm: 805788 1 Tablet(s) PO BID 201505/30/2017 Inactive felodipine ER 10 mg tablet,extended release 24 hr RxNorm: 325434 1 Tablet(s) PO daily 06/21/2016 06/15/2017 Inactive levothyroxine 50 mcg tablet RxNorm: 943878 1 Tablet(s) PO daily 06/21/2016 06/15/2017 Inactive simvastatin 40 mg tablet RxNorm: 575872 1 Tablet(s) PO daily TAKE 1 TABLET BY MOUTH EVERY DAY 06/21/2016 06/15/2017 Inactive Victoza 2-Dereck 0.6 mg/0.1 mL (18 mg/3 mL) subcutaneous pen injector RxNorm: 645880 1.2 Milligram(s) SQ daily 06/21/201602/08 Inactive quanity sufficient for 30 day supply/DC byetta valsartan 320 mg tablet RxNorm: 558684 1 Tablet(s) PO daily 10/17/2016 Inactive metoprolol succinate ER 50 mg tablet,extended release 24 hr RxNorm: 641350 1 Tablet(s) PO daily 06/21/2016 06/15/2017 Inactive escitalopram 10 mg tablet RxNorm: 896671 1 Tablet(s) PO QPM 11/01/2016 Inactive polymyxin B sulfate 10,000 unit-trimethoprim 1 mg/mL eye drops RxNorm: 712809 2 Drop(s) OPH QID 05/31/2016 06/09/2016 Inactive simvastatin 40 mg tablet RxNorm: 209324 TAKE 1 TABLET BY MOUTH EVERY DAY 03/14/2016 06/20/2016 Inactive hydrochlorothiazide 12.5 mg tablet RxNorm: 404737 1 Tablet(s) PO 3 x week 02/22/2016 06/20/2016 Inactive Anusol-HC 25 mg rectal suppository RxNorm: 3251297 1 Suppository RTL BID as needed hemorrhoid 02/22/2016 04/21/2016 Inactive valsartan 320 mg tablet RxNorm: 828898 1 Tablet(s) PO daily 02/201606/20/2016 Inactive Victoza 2-Dereck 0.6 mg/0.1 mL (18 mg/3 mL) subcutaneous pen injector RxNorm: 755828 1.2 Milligram(s) SQ daily 09/29/201506/20 Inactive quanity sufficient for 30 day supply/DC byetta Victoza 2-Dereck 0.6 mg/0.1 mL (18 mg/3 mL) subcutaneous pen injector RxNorm: 745610 1.2 Milligram(s) SQ daily 08/18/201509/27 Inactive quanity sufficient for 30 day supply/DC byetta glipizide 10 mg tablet RxNorm: 900756 1 Tablet(s) PO BID 201506/20/2016 Inactive levothyroxine 50 mcg tablet RxNorm: 040285 1 Tablet(s) PO daily 07/28/2015 06/20/2016 Inactive felodipine ER 10 mg tablet,extended release 24 hr RxNorm: 353686 1 Tablet(s) PO daily 07/28/2015 06/20/2016 Inactive metoprolol succinate ER 50 mg tablet,extended release 24 hr RxNorm: 040162 1 Tablet(s) PO daily 07/28/2015 06/20/2016 Inactive Victoza 2-Dereck 0.6 mg/0.1 mL (18 mg/3 mL) subcutaneous pen injector RxNorm: 951341 0.6 Milligram(s) SQ daily 07/13/201508/17 Inactive quanity sufficient for 30 day supply/DC byetta Victoza 2-Dereck 0.6 mg/0.1 mL (18 mg/3 mL) subcutaneous pen injector RxNorm: 512753 0.6 Milligram(s) SQ daily 07/13/201507/12 Inactive quanity sufficient for 30 day supply amoxicillin 500 mg capsule RxNorm: 253293 1 Capsule(s) PO TID 07/06/2015 07/15/2015 Inactive Byetta 5 mcg/dose (250 mcg/mL)1.2 mL subcutaneous pen injector RxNorm: 004637 5 Microgram(s) SQ BID 07/06/20152015 Inactive amoxicillin 500 mg capsule RxNorm: 133436 1 Capsule(s) PO TID 06/17/2015 06/26/2015 Inactive prednisone 20 mg tablet RxNorm: 887151 1 Tablet(s) PO daily 06/21/2015 Inactive Pen Needle 32 gauge x 5/32" RxNorm: 1 injection Miscellaneous QW 06/04/2015 12/30/2015 Inactive Bydureon 2 mg/0.65 mL subcutaneous pen injector RxNorm: 3902837 2 Milligram(s) SQ BID 06/04/2015 07/05/2015 Inactive simvastatin 40 mg tablet RxNorm: 808188 1 Tablet(s) PO daily 02/25/2016 Inactive Vitamin B-12 1,000 mcg tablet RxNorm: 563947 1 Tablet(s) PO daily No Start Date Active Combivent 18 mcg-103 mcg/actuation aerosol inhaler RxNorm: 422733 1 INH daily as needed No Start Date Active magnesium oxide 400 mg tablet RxNorm: 288681 1 Tablet(s) PO daily No Start Date Active ferrous sulfate 325 mg (65 mg iron) tablet RxNorm: 766579 1 Tablet(s) PO daily No Start Date Active Edward 3 capsule RxNorm : Capsule(s) PO No Start Date Active Vitamin C 500 mg tablet RxNorm: 169264 1 Tablet(s) PO daily No Start Date Active Vitamin D3 5,000 unit tablet RxNorm: 840532 1 Tablet(s) PO daily No Start Date Active Aspirin Low Dose 81 mg tablet,delayed release RxNorm: 841756 Tablet(s) PO daily No Start Date Active Fish Oil 300 mg-1,000 mg capsule RxNorm: 837800 1 Capsule(s) PO daily No Start Date Active Senior-Jay oral RxNorm: oral No Start Date Active Eliquis 2.5 mg tablet RxNorm: 1919948 1 Tablet(s) PO BID No Start Date 07/31/2016 Inactive simvastatin 40 mg tablet RxNorm: 212519 1 Tablet(s) PO daily No Start Date 03/02/2015 Inactive Vitamin D3 1,000 unit tablet RxNorm: 994509 1 Tablet(s) PO daily No Start Date 08/17/2016 Inactive hydrochlorothiazide 12.5 mg tablet RxNorm: 885980 1 Tablet(s) PO daily No Start Date 02/21/2016 Inactive metoprolol succinate ER 50 mg tablet,extended release 24 hr RxNorm: 674070 1 Tablet(s) PO daily No Start Date 2015 Inactive Vitamin C RxNorm: PO No Start Date 2014 Inactive allopurinol 100 mg tablet RxNorm: 128586 1 Tablet(s) PO BID No Start Date 06/20/2016 Inactive metformin 1,000 mg tablet RxNorm: 342585 1 Tablet(s) PO BID No Start Date 06/03/2015 Inactive valsartan 320 mg tablet RxNorm: 679354 1 Tablet(s) PO daily No Start Date 10/17/2016 Inactive magnesium 250 mg tablet RxNorm: 1 Tablet(s) PO daily No Start Date 07/19/2016 Inactive Vitamin D3 5,000 unit tablet RxNorm: 627043 1 Tablet(s) PO daily No Start Date 07/19/2016 Inactive allopurinol 100 mg tablet RxNorm: 946243 1 Tablet(s) PO daily No Start Date 07/27/2015 Inactive levothyroxine 50 mcg tablet RxNorm: 502641 1 Tablet(s) PO daily No Start Date 07/27/2015 Inactive glipizide 10 mg tablet RxNorm: 150109 1 Tablet(s) PO BID No Start Date 07/27/2015 Inactive felodipine ER 10 mg tablet,extended release 24 hr RxNorm: 310329 1 Tablet(s) PO daily No Start Date [...] Code Item Item Code Result Date %Hba1C Kca994 % HbA1c 51503-1 7.8 % 05/30/2017 %Hba1C Zbg836 Gluc Ave 177 mg/dL 05/30/2017 Metabolic Ord15 [...] Metabolic Ord15 CALCIUM 9.4 mg/dL 05/30/2017 Microalbumin Zsi292 MicroAlb 97.5 mg/dL 05/30/2017 %Hba1C Adg283 % HbA1c 77449-8 7.8 % 08/06/2015 %Hba1C Rvy656 Gluc Ave 177 mg/dL 08/06/2015 Comp Metabolic Kjg573 NA 135 mEq/L 08/03/2015 Comp Metabolic Ixu094 K 4.7 mEq/L 08/03/2015 Comp Metabolic Ipy861 CL 100 mEq/L 08/03/2015 Comp Metabolic Gyc549 CO2 24.0 mEq/L 08/03/2015 Comp Metabolic Msg484 ANION GAP 16 08/03/2015 Comp Metabolic Lqq639 GLUCOSE 214 mg/dL 08/03/2015 Comp Metabolic Tym442 Creat 1.5 mg/dL 08/03/2015 Comp Metabolic Bhl556 eGFR 37 ml/min/1.73m2 08/03/2015 Comp Metabolic Hbw038 BUN 46 mg/dL 08/03/2015 Comp Metabolic Hxj716 B/C Ratio 31.3 Ratio 08/03/2015 Comp Metabolic Bgp955 CALCIUM 9.6 mg/dL 08/03/2015 Comp Metabolic Uxi417 ALK PHOS 51 U/L 08/03/2015 Comp Metabolic Fhb499 AST(SGOT) 25 U/L 08/03/2015 Comp Metabolic Kov123 ALT(SGPT) 24 U/L 08/03/2015 Comp Metabolic Fqj491 BILI T 0.3 mg/dL 08/03/2015 Comp Metabolic Uub408 ALBUMIN 4.3 g/dL 08/03/2015 Comp Metabolic Qcx795 TPRO 7.1 g/dL 08/03/2015 Comp Metabolic Jpx300 GLOB 2.8 g/dL 08/03/2015 Comp Metabolic Jjd273 A/G Ratio 1.5 Ratio 08/03/2015 Comp Metabolic Xsl152 Osmo 288 mOsmo 08/03/2015 Cbc With Differential [...] 91.5 fl 08/03/2015 Cbc With Differential Ord2 [place]% 8.7 % 08/03/2015 Cbc With Differential Ord2 MCH 30.6 pg 08/03/2015 Cbc With Differential Ord2 Eos% 2.8 % 08/03/2015 Cbc With Differential Ord2 MCHC 33.4 pg 08/03/2015 Cbc With Differential Ord2 PLT 215 K/ul 08/03/2015 Cbc With Differential Ord2 Baso% 0.3 % 08/03/2015 Cbc With Differential Ord2 Neut ABS# 6.35 K/ul 08/03/2015 Cbc With Differential Ord2 RDW 13.9 % 08/03/2015 Cbc With Differential Ord2 Lymph ABS# 2.58 K/ul 08/03/2015 Cbc With Differential Ord2 [place] ABS# 0.9 K/ul 08/03/2015 Cbc With Differential Ord2 Eos ABS# 0.3 K/ul 08/03/2015 Cbc With Differential Ord2 Baso ABS# 0.0 K/ul 08/03/2015 Cbc With Differential Ord2 New Analyzer Notice Please note new ref ranges starting 07-15-2015 due to implemntation of new five part differential hematolgy analyzer. 08/03/2015 Lipase Yop601 LIPASE 64 U/L 08/03/2015 Amylase Ord34 AMYLASE [...] level 01/25/2017 None Full Exam - General 1995 Ears/Nose/Throat lips/teeth/gingiva Overall: benign lips 01/25/2017 None Full Exam - General 1995 Ears/Nose/Throat lips/teeth/gingiva Overall: normal dentition 01/25/2017 None Full Exam - General 1994 Ears/Nose/Throat lips/teeth/gingiva Overall: benign gingiva 01/25/2017 None Full Exam - General 1995 Ears/Nose/Throat lips/teeth/gingiva Overall: no masses 01/25/2017 None [...] gingiva 03/03/2015 None Full Exam - General 1995 Ears/Nose/Throat lips/teeth/gingiva Overall: no masses 03/03/2015 None [...] 1: 140/60 Code: 8480-6 BMI: 26.5 Code: 96066-6 Heart Rate 1: 87 bpm Height: 5'6" SpO2: 97% Weight: 164 lbs 05/30/2017 Blood Pressure 1: 128/66 Code : 8480-6 BMI: 26.6 Code : 10933-3 Heart Rate 1 : 66 bpm Height: 5'6" SpO2: 94% Weight: 165 lbs 01/26/2017 Blood Pressure 1: 140/82 Code : 8480-6 BMI: 26.3 Code : 61225-3 Heart Rate 1 : 73 bpm Height: 5'6" SpO2: 96% Waist Measure (cm): 84 cm Weight: 163 lbs 01/25/2017 Blood Pressure 1: 140/80 Code : 8480-6 BMI: 26.3 Code : 04430-6 Heart Rate 1 : 73 bpm Height: 5'6" SpO2: 96% Weight: 163 lbs 12/21/2016 Blood Pressure 1: 122/68 Code : 8480-6 BMI: 26.6 Code : 92280-8 Heart Rate 1 : 73 bpm Height: 5'6" SpO2: 97% Weight: 165 lbs 12/15/2016 Blood Pressure 1: 124/60 Code : 8480-6 BMI: 26.6 Code : 01519-9 Heart Rate 1 : 68 bpm Height: 5'6" SpO2: 96% Weight: 165 lbs 10/18/2016 Blood Pressure 1: 138/68 Code : 8480-6 BMI: 26.1 Code : 42454-1 Heart Rate 1 : 68 bpm Height: 5'6" SpO2: 96% Weight: 162 lbs 08/09/2016 Blood Pressure 1: 116/54 Code : 8480-6 BMI: 25.7 Code : 18738-2 Heart Rate 1 : 71 bpm Height: 5'6" SpO2: 97% Weight: 159 lbs 06/21/2016 Blood Pressure 1: 140/72 Code : 8480-6 BMI: 26.5 Code : 05596-7 Heart Rate 1 : 71 bpm Height: 5'6" SpO2: 98% Weight: 164 lbs 05/31/2016 Blood Pressure 1: 142/88 Code : 8480-6 BMI: 26.6 Code : 10746-1 Heart Rate 1 : 77 bpm Height: 5'6" SpO2: 97% Weight: 165 lbs 02/22/2016 Blood Pressure 1: 138/80 Code : 8480-6 BMI: 26.1 Code : 31209-4 Heart Rate 1 : 72 bpm Height: 5'6" SpO2: 97% Weight: 162 lbs 11/16/2015 Blood Pressure 1: 148/70 Code : 8480-6 BMI: 25.5 Code : 15452-1 Heart Rate 1 : 76 bpm Height: 5'6" SpO2: 97% Weight: 158 lbs 09/29/2015 Blood Pressure 1: 130/70 Code : 8480-6 BMI: 26.0 Code : 21578-3 Heart Rate 1 : 78 bpm Height: 5'6" SpO2: 98% Weight: 161 lbs 08/03/2015 Blood Pressure 1: 140/72 Code : 8480-6 BMI: 26.0 Code : 08307-8 Heart Rate 1 : 90 bpm Height: 5'6" SpO2: 97% Weight: 161 lbs 07/06/2015 Blood Pressure 1: 122/70 Code : 8480-6 BMI: 26.0 Code : 50084-9 Heart Rate 1 : 76 bpm Height: 5'6" SpO2: 96% Weight: 161 lbs 06/17/2015 Blood Pressure 1: 136/68 Code : 8480-6 BMI: 25.5 Code : 57537-7 Heart Rate 1 : 75 bpm Height: 5'6" SpO2: 98% Weight: 158 lbs 06/04/2015 Blood Pressure 1: 135/78 Code : 8480-6 BMI: 26.8 Code : 14939-8 Heart Rate 1 : 73 bpm Height: 5'6" SpO2: 98% Weight: 166 lbs 03/03/2015 Blood Pressure 1: 128/62 Code : 8480-6 BMI: 26.0 Code : 91624-7 Heart Rate 1 : 66 bpm Height: [...] Present Encounters Encounter Performer Location Codes Date ([id number]) [id number] EST. PATIENT, LEVEL IV Diagnosis: Type 2 diabetes mellitus without complications[ICD10: E11.9] Diagnosis: Essential (primary) hypertension[ICD10: I10] Diagnosis: Mixed hyperlipidemia[ICD10: E78.2] Melisa Hughes MD, [facility] CPT-4: 12269 07/19/2017 ([id number]) 77214 EST. 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 PATIENT, LEVEL IV Diagnosis: Type 2 diabetes mellitus without complications[ICD10: E11.9] Diagnosis: Generalized anxiety disorder[ICD10: F41.1] Diagnosis: Essential (primary) hypertension[ICD10: I10] [facility] CPT-4: 36286 01/25/2017 92984 EST. PATIENT, LEVEL III Diagnosis: Pleurodynia[ICD10: R07.81] [facility] CPT-4 : 08691 12/21/2016 ([id number]) 52214 EST. PATIENT, LEVEL IV Diagnosis: Generalized anxiety disorder[ICD10: F41.1] Diagnosis: Essential (primary) hypertension[ICD10: I10] Diagnosis: Low back pain[ICD10: M54.5] Diagnosis: Urinary tract infection, site not specified[ICD10: N39.0] Diagnosis: Type 2 diabetes mellitus without complications[ICD10: E11.9] [facility] CPT-4: 96490 12/15/2016 ([id number]) 19839 EST. PATIENT, LEVEL IV Diagnosis: Type 2 diabetes mellitus without complications[ICD10: E11.9] Diagnosis: Essential (primary) hypertension[ICD10: I10] Diagnosis: Other insomnia[ICD10: G47.09] Melisa Hughes MD [facility] CPT- 4: 34013 10/18/2016 ([id number]) 83552 EST. PATIENT, LEVEL IV Diagnosis: Essential (primary) hypertension[ICD10: I10] Diagnosis: Type 2 diabetes mellitus without complications[ICD10: E11.9] Melisa Hughes MD, [facility] CPT-4: 62266 08/09/2016 ([id number]) 39995 EST. PATIENT, LEVEL IV Diagnosis: Type 2 diabetes mellitus without complications[ICD10: E11.9] Diagnosis: Essential (primary) hypertension[ICD10: I10] Diagnosis: Mixed hyperlipidemia[ICD10: E78.2] Diagnosis: Generalized anxiety disorder[ICD10: F41.1] Melisa Hughes MD, [facility] CPT-4: 51657 06/21/2016 ([id number]) 36755 EST. PATIENT, LEVEL III Diagnosis: Acute follicular conjunctivitis, bilateral[ICD10: H10.013] Aleena Hughes MD, [facility] CPT-4: 52893 05/31/2016 ([id number]) 08029 EST. 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 PATIENT, LEVEL IV Diagnosis: Sacroiliitis, not elsewhere classified[ICD10: M46.1] Diagnosis: Unspecified inflammatory spondylopathy, sacral and sacrococcygeal region[ICD10: M46.98] Diagnosis: Essential (primary) hypertension[ICD10: I10] Melisa Hughes MD, [facility] CPT-4: 81235 11/16/2015 ([id number]) 27834 EST. 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 PATIENT, LEVEL IV Diagnosis: Generalized abdominal pain[ICD10: R10.84] Diagnosis: Other cholelithiasis without obstruction[ICD10: K80.80] Virgie Hughes MD, [facility] CPT-4: 37892 08/03/2015 ([id number]) 41596 EST. 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 PATIENT, LEVEL IV Diagnosis: Acute recurrent maxillary sinusitis[ICD10: J01.01] Diagnosis: Acute laryngopharyngitis[ICD10: J06.0] Diagnosis: Gastro-esophageal reflux disease without esophagitis[ICD10: K21.9] Diagnosis: Other specified diseases of inner ear, bilateral[ICD10: H83.8X3] Virgie Hughes MD, [facility] CPT-4: 23539 06/17/2015 ([id number]) 98703 EST. 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 07/19/2017 Appointment: Melisa Hughes WPtel: [address] [place], [place] [address] (15 min) Moderate 07/19/2017 Patient Education: Patient [...] to medications. 05/30/2017 App[facility]ment: [phone] (15 min) Moderate 05/30/2017 Patient Education: Patient [...] care surrogate. 01/26/2017 [phone] [facility] [facility] - Annual Wellness Visit 01/26/2017 Patient Education: [...] medications. 01/25/2017 Appointment: Melisa Hughes WPtel: [phone] [facility] (15 min) Moderate 01/25/2017 Patient Education: Patient Medication Summary Completed 01/25/2017 Appointment: Melisa Hughes WPtel: [phone] [facility] (15 min) Moderate 01/17/2017 Referral: Giuliano Santo [...] not improve. 12/21/2016 Appointment: Virgie Holbrook WPtel: [facility] (30 min) Complex 12/21/2016 Patient Education: Patient Medication Summary Completed 12/21/2016 Referral: External, Ordering Provider Patient informed. Script faxed. Completed 12/20/2016 Visit Plan: Back pain - lumbar spine disc degeneration - we will do a referral to dr. santo for injections and physical therapy at [place] or [facility] therapy if we cannot get you in to [place]. HTN - stable continue with current medications. [...] less controlled. 12/15/2016 Appointment: Melisa Hughes WPtel: [facility] [place] (15 min) Moderate 12/15/2016 Patient Education: Patient Medication Summary Completed 12/15/2016 Care Plan: Referral Order SNOMED-CT : 670444525 Pending 12/15/2016 Care Plan: Referral Order SNOMED-CT : 303503433 Pending 12/15/2016 Visit Plan: Diabetes Mellitus - [...] time insomnia. 10/18/2016 Appointment: Melisa Hughes WPtel: [address] [place], [place] [address] (15 min) Moderate 10/18/2016 Patient Education: Patient [...] as indicated. 08/09/2016 Appointment: Mel[facility] Hughes [facility]Ptel[phone] [facility] (15 min) Moderate 08/09/2016 Patient Education: Patient [...] with lexapro 06/21/2016 Appointment: Mel[facility] Hughes [facility]Ptel[phone] [facility] (15 min) Moderate 06/21/2016 Patient Education: Patient Medication Summary Completed 06/21/2016 Care Plan: SCREENINGMAMMOGRAPHYDIGITAL LOINC : 80077-6 Pending 06/21/2016 Visit Plan: Conjunctivitis - rx for eye drops/lube sent electronically to the patient's pharmacy. The patient has been instructed to cleanse affected eye with warm washcloth, then place medication into affected eye four times daily. 05/31/2016 Appointment: Ale[facility] Melton [facility] [phone] [phone] [place] (15 min) Moderate 05/31/2016 Patient Education: [...] less controlled. 02/22/2016 Appointment: Melisa Hughes WPtel: [address] [place], [place] [phone] [place] (15 min) Moderate 02/22/2016 Patient Education: Patient Medication Summary Completed 02/22/2016 Patient Education: Hypertension Completed 02/22/2016 Care Plan: Referral Order SNOMED-CT : 756168091 Pending 02/22/2016 Care Plan: Referral Order SNOMED-CT : 347290987 Pending 02/22/2016 Visit Plan: Sacroiliitis - referral to Dr. Covarrubias at [place] for injections- sample of voltaren gel given [...] 11/16/2015 Care Plan: Referral Order SNOMED-CT : 511066906 Pending 11/16/2015 Appointment: Melisa Hughes WPtel: [facility] (15 min) Moderate 2015 Visit Plan: Diabetes [...] of control. 09/29/2015 Appointment: Melisa Hughes WPtel: [phone] [facility] (15 min) Moderate 09/29/2015 Patient Education: Patient [...] for amoxicillin 07/06/2015 Appointment: Melisa Hughes WPtel: [phone] [facility] (15 min) Moderate 07/06/2015 Patient Education: Patient [...] at home. 06/04/2015 Appointment: Melisa Hughes WPtel: [phone] [facility] (15 min) Moderate 06/04/2015 Patient Education: Patient Medication Summary Completed 06/04/2015 Patient Education: Hypertension Completed 06/04/2015 Visit Plan: CKD- will obtain labs from fire patroller in [place]. She saw the PA, Liya Ridley, most recently. We have called and left a message to have these faxed over. DM- she is following an paperboard boxes estimator in [place] who manages her labs and medications CAD- following Dr. Pagan in [facility]. She has had two stents placed in [...] blood pressure readings at home. 03/03/2015 Appointment: Melisa Hughes WPtel: [facility] [address] New Patient 03/03/2015 Patient Education: Patient Medication Summary Completed 03/03/2015 Patient Education: Hypertension Completed 03/03/2015 Referral: External, Ordering Provider Referral Appointment Requested Referral: Josesito Covarrubias WPtel: Referral Initiated Referral: Josesito Covarrubias WPtel: Referral Appointment Requested Referral: Giuliano Santo Referral Completed Referral: Giuliano Joseph Referral Appointment Requested Referral: Linnea Cleveland WPtel: [address] [place] [address] Referral Appointment Requested Referral: Linnea Cleveland WPtel: [address] [place] [address] Referral Completed Instructions Comment . Sinusitis - [...] Sacroiliitis - referral to Dr. Covarrubias at [place] for injections- sample of voltaren gel given [...] diabetes. . CKD- will obtain labs from fire patroller in [place]. She saw the PA, Liya Ridley, most recently. We have called and left a message to have these faxed over. DM- she is following an paperboard boxes estimator in [place] who manages her labs and medications CAD- following Dr. Pagan in [facility]. She has had two stents placed in [...] eye four times daily. dr. gibbs at [facility] in [place] - will do referral for back injections stop the keflex and start on the bactrim ds twice daily x 7 days. we will do a referral to dr. santo for injections and physical therapy at [place] or [facility] physical therapy if we cannot get you in to [place] . Back pain - lumbar spine disc degeneration - we will do a referral to dr. santo for injections and physical therapy at [place] or [facility] therapy if we cannot get you in to [place]. HTN - stable continue with current medications. [...] are starting to become less controlled. take 1/2 a pill daily x 1 week then [...]
--- OUTSIDE RECORDS SUMMARY | 2017-08-17 12:42 | XMS REPORT | Continuity of Care Document ---
Author Author [facility] Organization [facility] Address Unknown Phone Unavailable Allergies Active Description Code Type Severity Reaction Onset Reported/Identified Relationship to Patient Clinical Status Yes acetaminophen [id number] Drug Allergy Mild HALLUCINATIONS 01/15/2010 Yes aspirin [id number] Drug Allergy Mild HIVES 01/15/2010 Yes oxycodone [id number] Drug Allergy Mild HALLUCINATIONS 01/15/2010 Medications There is no data. Problems Date Dx Coded Attending Type Code Diagnosis Diagnosed By 01/29/2015 CAROLINE ISIDORE O RN MOBILE Ot 250.00 01/29/2015 CAROLINE, ISIDORE O RN MOBILE Ot 272.4 01/29/2015 CAROLINE, ISIDORE O RN MOBILE Ot 414.00 01/29/2015 ARAWU, ISIDORE O RN MOBILE Ot 426.3 02/09/2015 NWAGWU, ISIDORE O RN MOBILE Ot 250.00 02/09/2015 NWAGWU, ISIDORE O RN MOBILE Ot 272.4 02/09/2015 ARAWTrevor, ISIDORE O RN MOBILE Ot 414.00 02/09/2015 CAROLINE, ISIDORE O RN MOBILE Ot 426.3 08/20/2015 RAGHAV CHAMBERS, MIRI Stinson Ot D72.829 ELEVATED WHITE BLOOD CELL COUNT, UNSPECI 08/20/2015 RAGHAV CHAMBERS, MIRI Stinson Ot E11.9 TYPE 2 DIABETES MELLITUS WITHOUT COMPLIC 08/20/2015 MIRI AVILEZ MD Ot E78.0 PURE HYPERCHOLESTEROLEMIA 08/20/2015 MIRI AVILEZ MD Ot E78.5 HYPERLIPIDEMIA, UNSPECIFIED 08/20/2015 MIRI AVILEZ MD Ot I12.9 HYPERTENSIVE CHRONIC KIDNEY DISEASE W ST 08/20/2015 MIRI AVILEZ MD Ot I25.119 ATHSCL HEART DISEASE OF [place] COR ART W 08/20/2015 MIRI AVILEZ MD Ot I44.7 LEFT BUNDLE-BRANCH BLOCK, UNSPECIFIED 08/20/2015 RAGHAV CHAMBERS, MIRI Stinson Ot I65.23 OCCLUSION AND STENOSIS OF BILATERAL [place] 08/20/2015 MIRI AVILEZ MD Ot J45.909 UNSPECIFIED ASTHMA, UNCOMPLICATED 08/20/2015 MIRI AVILEZ MD Ot K29.70 GASTRITIS, UNSPECIFIED, WITHOUT BLEEDING 08/20/2015 MIRI AVILEZ MD Ot K80.20 CALCULUS OF GALLBLADDER W/O CHOLECYSTITI 08/20/2015 MIRI AVILEZ MD Ot N18.9 CHRONIC KIDNEY DISEASE, UNSPECIFIED 08/20/2015 MIRI AVILEZ MD Ot R50.9 FEVER, UNSPECIFIED 08/20/2015 MIRI AVILEZ MD Ot Z95.5 PRESENCE OF CORONARY ANGIOPLASTY IMPLANT 08/28/2015 RENÉ GUILLAUME APRN Ot K80.20 08/28/2015 RENÉ GUILLAUME APRN Ot N28.9 09/03/2015 RUPERTO MARQUEZ DO Ot K80.10 CALCULUS OF GALLBLADDER W CHRONIC CHOLEC 09/03/2015 RUPERTO MARQUEZ DO Ot K80.20 09/03/2015 RUPERTO MARQUEZ DO Ot Z79.899 OTHER GROUP HOME (CURRENT) DRUG THERAPY 09/04/2015 RENÉ GUILLAUME APRN Ot K80.20 09/04/2015 RENÉ GUILLAUME APRN Ot N28.9 09/30/2015 RUPERTO MARQUEZ DO Ot K80.10 09/30/2015 RUPERTO MARQUEZ DO Ot Z79.899 04/26/2016 ASIA FORD MD Ot E03.9 HYPOTHYROIDISM, UNSPECIFIED 04/26/2016 ASIA FORD MD Ot E11.9 TYPE 2 DIABETES MELLITUS WITHOUT COMPLIC 04/26/2016 ASIA FORD MD Ot I10 ESSENTIAL (PRIMARY) HYPERTENSION 04/26/2016 ASIA FORD MD Ot I25.10 ATHSCL HEART DISEASE OF [place] CORONARY 04/26/2016 ASIA FORD MD Ot E03.9 HYPOTHYROIDISM, UNSPECIFIED 04/26/2016 ASIA FORD MD Ot E11.9 TYPE 2 DIABETES MELLITUS WITHOUT COMPLIC 04/26/2016 ASIA FORD MD Ot I10 ESSENTIAL (PRIMARY) HYPERTENSION 04/26/2016 LOGAN MD, BASHAR J Ot I25.10 ATHSCL HEART DISEASE OF [place] CORONARY 04/26/2016 ASIA FORD MD J Ot E03.9 HYPOTHYROIDISM, UNSPECIFIED 04/26/2016 ASIA FORD MD J Ot E11.9 TYPE 2 DIABETES MELLITUS WITHOUT COMPLIC 04/26/2016 ASIA FORD MD J Ot I10 ESSENTIAL (PRIMARY) HYPERTENSION 04/26/2016 ASIA FORD MD J Ot I25.10 ATHSCL HEART DISEASE OF [place] CORONARY 04/26/2016 ASIA FORD MD J Ot E03.9 HYPOTHYROIDISM, UNSPECIFIED 04/26/2016 ASIA FORD MD J Ot E11.9 TYPE 2 DIABETES MELLITUS WITHOUT COMPLIC 04/26/2016 ASIA FORD MD J Ot I10 ESSENTIAL (PRIMARY) HYPERTENSION 04/26/2016 ASIA FORD MD J Ot I25.10 ATHSCL HEART DISEASE OF [place] CORONARY 04/26/2016 ASIA FORD MD J Ot E03.9 HYPOTHYROIDISM, UNSPECIFIED 04/26/2016 ASIA FORD MD J Ot E11.9 TYPE 2 DIABETES MELLITUS WITHOUT COMPLIC 04/26/2016 ASIA FORD MD J Ot I10 ESSENTIAL (PRIMARY) HYPERTENSION 04/26/2016 ASIA FORD MD J Ot I25.10 ATHSCL HEART DISEASE OF [place] CORONARY 04/27/2016 ASIA FORD MD J Ot E03.9 HYPOTHYROIDISM, UNSPECIFIED 04/27/2016 ASIA FORD MD J Ot E11.9 TYPE 2 DIABETES MELLITUS WITHOUT COMPLIC 04/27/2016 ASIA FORD MD J Ot I10 ESSENTIAL (PRIMARY) HYPERTENSION 04/27/2016 ASIA FORD MD J Ot I25.10 ATHSCL HEART DISEASE OF [place] CORONARY 05/06/2016 ASIA FORD MD Ot E03.9 HYPOTHYROIDISM, UNSPECIFIED 05/06/2016 ASIA FORD MD J Ot E13.9 OTHER SPECIFIED DIABETES MELLITUS WITHOU 05/06/2016 ASIA FORD MD J Ot I10 ESSENTIAL (PRIMARY) HYPERTENSION 05/06/2016 ASIA FORD MD J Ot I25.10 ATHSCL HEART DISEASE OF [place] CORONARY 05/11/2016 ASIA FORD MD J Ot E11.9 TYPE 2 DIABETES MELLITUS WITHOUT COMPLIC 05/11/2016 ASIA FORD MD J Ot E78.5 HYPERLIPIDEMIA, UNSPECIFIED 05/11/2016 ASIA FORD MD Ot I10 ESSENTIAL (PRIMARY) HYPERTENSION 05/11/2016 ASIA FORD MD Ot I25.10 ATHSCL HEART DISEASE OF [place] CORONARY 05/11/2016 ASIA FORD MD Ot I44.7 LEFT BUNDLE-BRANCH BLOCK, UNSPECIFIED 05/11/2016 ASIA FORD MD Ot R94.39 ABNORMAL RESULT OF OTHER CARDIOVASCULAR 05/11/2016 ASIA FORD MD Ot Z79.899 OTHER SEARCH COORDINATOR (CURRENT) DRUG THERAPY 05/11/2016 ASIA FORD MD Ot Z95.5 PRESENCE OF CORONARY ANGIOPLASTY IMPLANT 05/17/2016 ASIA FORD MD Ot E03.9 HYPOTHYROIDISM, UNSPECIFIED 05/17/2016 ASIA FORD MD Ot E11.9 TYPE 2 DIABETES MELLITUS WITHOUT COMPLIC 05/17/2016 ASIA FORD MD Ot I10 ESSENTIAL (PRIMARY) HYPERTENSION 05/17/2016 ASIA FORD MD Ot I25.10 ATHSCL HEART DISEASE OF [place] CORONARY 05/24/2016 ASIA FORD MD Ot E03.9 HYPOTHYROIDISM, UNSPECIFIED 05/24/2016 ASIA FORD MD Ot E13.9 OTHER SPECIFIED DIABETES MELLITUS WITHOU 05/24/2016 ASIA FORD MD Ot I10 ESSENTIAL (PRIMARY) HYPERTENSION 05/24/2016 ASIA FORD MD Ot I25.10 ATHSCL HEART DISEASE OF [place] CORONARY 05/30/2016 ASIA FORD MD Ot E03.9 HYPOTHYROIDISM, UNSPECIFIED 05/30/2016 ASIA FORD MD Ot E11.9 TYPE 2 DIABETES MELLITUS WITHOUT COMPLIC 05/30/2016 ASIA FORD MD Ot I10 ESSENTIAL (PRIMARY) HYPERTENSION 05/30/2016 ASIA FORD MD Ot I25.10 ATHSCL HEART DISEASE OF [place] CORONARY 06/07/2016 ASIA FORD MD Ot E03.9 HYPOTHYROIDISM, UNSPECIFIED 06/07/2016 ASIA FORD MD Ot E13.9 OTHER SPECIFIED DIABETES MELLITUS WITHOU 06/07/2016 ASIA FORD MD Ot I10 ESSENTIAL (PRIMARY) HYPERTENSION 06/07/2016 ASIA FORD MD Ot I25.10 ATHSCL HEART DISEASE OF [place] CORONARY 06/09/2016 ASIA FORD MD Ot E11.9 TYPE 2 DIABETES MELLITUS WITHOUT COMPLIC 06/09/2016 ASIA FORD MD Ot E78.5 HYPERLIPIDEMIA, UNSPECIFIED 06/09/2016 ASIA FORD MD Ot I10 ESSENTIAL (PRIMARY) HYPERTENSION 06/09/2016 ASIA FORD MD Ot I25.10 ATHSCL HEART DISEASE OF [place] CORONARY 06/09/2016 ASIA FORD MD Ot I44.7 LEFT BUNDLE-BRANCH BLOCK, UNSPECIFIED 06/09/2016 ASIA FORD MD Ot R94.39 ABNORMAL RESULT OF OTHER CARDIOVASCULAR 06/09/2016 ASIA FORD MD Ot Z79.899 OTHER GROUP HOME (CURRENT) DRUG THERAPY 06/09/2016 ASIA FORD MD Ot Z95.5 PRESENCE OF CORONARY ANGIOPLASTY IMPLANT 06/11/2016 ASIA FORD MD Ot E11.9 TYPE 2 DIABETES MELLITUS WITHOUT COMPLIC 06/11/2016 ASIA FORD MD Ot E78.5 HYPERLIPIDEMIA, UNSPECIFIED 06/11/2016 ASIA FORD MD Ot I10 ESSENTIAL (PRIMARY) HYPERTENSION 06/11/2016 ASIA FORD MD Ot I25.10 ATHSCL HEART DISEASE OF [place] CORONARY 06/11/2016 ASIA FORD MD Ot I44.7 LEFT BUNDLE-BRANCH BLOCK, UNSPECIFIED 06/11/2016 ASIA FORD MD Ot R94.39 ABNORMAL RESULT OF OTHER CARDIOVASCULAR 06/11/2016 ASIA FORD MD Ot Z79.899 OTHER SEARCH COORDINATOR (CURRENT) DRUG THERAPY 06/11/2016 ASIA FORD MD Ot Z95.5 PRESENCE OF CORONARY ANGIOPLASTY IMPLANT 11/02/2016 DAREN ALMODOVAR MD Ot K21.9 GASTRO-ESOPHAGEAL REFLUX DISEASE WITHOUT 11/02/2016 DAREN ALMODOVAR MD Ot Z01.818 ENCOUNTER FOR OTHER PREPROCEDURAL EXAMIN 11/02/2016 DAREN ALMODOVAR MD Ot Z12.11 ENCOUNTER FOR SCREENING FOR MALIGNANT NE 11/04/2016 DAREN ALMODOVAR MD Ot E11.9 TYPE 2 DIABETES MELLITUS WITHOUT COMPLIC 11/04/2016 DAREN ALMODOVAR MD Ot E78.5 HYPERLIPIDEMIA, UNSPECIFIED 11/04/2016 DAREN ALMODOVAR MD Ot I10 ESSENTIAL (PRIMARY) HYPERTENSION 11/04/2016 DAREN ALMODOVAR MD Ot I25.10 ATHSCL HEART DISEASE OF [place] CORONARY 11/04/2016 DAREN ALMODOVAR MD Ot K21.9 GASTRO-ESOPHAGEAL REFLUX DISEASE WITHOUT 11/04/2016 DAREN ALMODOVAR MD Ot K44.9 DIAPHRAGMATIC HERNIA WITHOUT OBSTRUCTION 11/04/2016 DAREN ALMODOVAR MD Ot Z12.11 ENCOUNTER FOR SCREENING FOR MALIGNANT NE 11/04/2016 DAREN ALMODOVAR MD Ot Z79.899 OTHER SEARCH COORDINATOR (CURRENT) DRUG THERAPY 11/04/2016 DAREN ALMODOVAR MD Ot Z95.5 PRESENCE OF CORONARY ANGIOPLASTY IMPLANT 11/08/2016 DAREN ALMODOVAR MD Ot E11.9 TYPE 2 DIABETES MELLITUS WITHOUT COMPLIC 11/08/2016 DAREN ALMODOVAR MD Ot E78.5 HYPERLIPIDEMIA, UNSPECIFIED 11/08/2016 DAREN ALMODOVAR MD Ot I10 ESSENTIAL (PRIMARY) HYPERTENSION 11/08/2016 DAREN ALMODOVAR MD Ot I25.10 ATHSCL HEART DISEASE OF [place] CORONARY 11/08/2016 DAREN ALMODOVAR MD Ot K21.9 GASTRO-ESOPHAGEAL REFLUX DISEASE WITHOUT 11/08/2016 DAREN ALMODOVAR MD Ot K44.9 DIAPHRAGMATIC HERNIA WITHOUT OBSTRUCTION 11/08/2016 DAREN ALMODOVAR MD Ot Z12.11 ENCOUNTER FOR SCREENING FOR MALIGNANT NE 11/08/2016 DAREN ALMODOVAR MD Ot Z79.899 OTHER SEARCH COORDINATOR (CURRENT) DRUG THERAPY 11/08/2016 DAREN ALMODOVAR MD Ot Z95.5 PRESENCE OF CORONARY ANGIOPLASTY IMPLANT 11/09/2016 DAREN ALMODOVAR MD Ot K21.9 GASTRO-ESOPHAGEAL REFLUX DISEASE WITHOUT 11/09/2016 DAREN ALMODOVAR MD Ot Z01.818 ENCOUNTER FOR OTHER PREPROCEDURAL EXAMIN 11/09/2016 DAREN ALMODOVAR MD Ot Z12.11 ENCOUNTER FOR SCREENING FOR MALIGNANT NE 11/16/2016 DAREN ALMODOVAR MD Ot E11.9 TYPE 2 DIABETES MELLITUS WITHOUT COMPLIC 11/16/2016 DAREN ALMODOVAR MD Ot E78.5 HYPERLIPIDEMIA, UNSPECIFIED 11/16/2016 DAREN ALMODOVAR MD Ot I10 ESSENTIAL (PRIMARY) HYPERTENSION 11/16/2016 DAREN ALMODOVAR MD Ot I25.10 ATHSCL HEART DISEASE OF [place] CORONARY 11/16/2016 DAREN ALMODOVAR MD Ot K21.9 GASTRO-ESOPHAGEAL REFLUX DISEASE WITHOUT 11/16/2016 DAREN ALMODOVAR MD Ot K44.9 DIAPHRAGMATIC HERNIA WITHOUT OBSTRUCTION 11/16/2016 DAREN ALMODOVAR MD Ot Z12.11 ENCOUNTER FOR SCREENING FOR MALIGNANT NE 11/16/2016 DAREN ALMODOVAR MD Ot Z79.899 OTHER SEARCH COORDINATOR (CURRENT) DRUG THERAPY 11/16/2016 DAREN ALMODOVAR MD Ot Z95.5 PRESENCE OF CORONARY ANGIOPLASTY IMPLANT 12/12/2016 INÉS AGUILAR MD Ot E03.9 HYPOTHYROIDISM, UNSPECIFIED 12/12/2016 INÉS AGUILAR MD Ot E11.9 TYPE 2 DIABETES MELLITUS WITHOUT COMPLIC 12/12/2016 INÉS AGUILAR MD Ot E78.00 PURE HYPERCHOLESTEROLEMIA, UNSPECIFIED 12/12/2016 INÉS AGUILAR MD Ot I10 ESSENTIAL (PRIMARY) HYPERTENSION 12/12/2016 INÉS AGUILAR MD Ot I25.10 ATHSCL HEART DISEASE OF [place] CORONARY 12/12/2016 INÉS AGUILAR MD Ot M48.06 SPINAL STENOSIS, LUMBAR REGION 12/12/2016 INÉS AGUILAR MD Ot M54.5 LOW BACK PAIN 12/12/2016 INÉS AGUILAR MD Ot M62.838 OTHER MUSCLE SPASM 12/12/2016 INÉS AGUILAR MD Ot N39.0 URINARY TRACT INFECTION, SITE NOT SPECIF 12/12/2016 INÉS AGUILAR MD Ot Z79.82 SEARCH COORDINATOR (CURRENT) USE OF ASPIRIN 12/12/2016 INÉS AGUILAR MD Ot Z79.84 SEARCH COORDINATOR (CURRENT) USE OF ORAL HYPOGLYC 12/12/2016 INÉS AGUILAR MD Ot Z90.710 ACQUIRED ABSENCE OF BOTH CERVIX AND UTER 12/12/2016 INÉS AGUILAR MD Ot Z95.5 PRESENCE OF CORONARY ANGIOPLASTY IMPLANT 12/14/2016 INÉS AGUILAR MD Ot E03.9 HYPOTHYROIDISM, UNSPECIFIED 12/14/2016 INÉS AGUILAR MD Ot E11.9 TYPE 2 DIABETES MELLITUS WITHOUT COMPLIC 12/14/2016 INÉS AGUILAR MD Ot E78.00 PURE HYPERCHOLESTEROLEMIA, UNSPECIFIED 12/14/2016 INÉS AGUILAR MD Ot I10 ESSENTIAL (PRIMARY) HYPERTENSION 12/14/2016 INÉS AGUILAR MD Ot I25.10 ATHSCL HEART DISEASE OF [place] CORONARY 12/14/2016 INÉS AGUILAR MD Ot M48.06 SPINAL STENOSIS, LUMBAR REGION 12/14/2016 INÉS AGUILAR MD Ot M54.5 LOW BACK PAIN 12/14/2016 INÉS AGUILAR MD Ot M62.838 OTHER MUSCLE SPASM 12/14/2016 INÉS AGUILAR MD Ot N39.0 URINARY TRACT INFECTION, SITE NOT SPECIF 12/14/2016 INÉS AGUILAR MD Ot Z79.82 GROUP HOME (CURRENT) USE OF ASPIRIN 12/14/2016 INÉS AGUILAR MD Ot Z79.84 GROUP HOME (CURRENT) USE OF ORAL HYPOGLYC 12/14/2016 INÉS AGUILAR MD Ot Z90.710 ACQUIRED ABSENCE OF BOTH CERVIX AND UTER 12/14/2016 INÉS AGUILAR MD Ot Z95.5 PRESENCE OF CORONARY ANGIOPLASTY IMPLANT 12/17/2016 INÉS AGUILAR MD Ot E03.9 HYPOTHYROIDISM, UNSPECIFIED 12/17/2016 INÉS AGUILAR MD Ot E11.9 TYPE 2 DIABETES MELLITUS WITHOUT COMPLIC 12/17/2016 INÉS AGUILAR MD Ot E78.00 PURE HYPERCHOLESTEROLEMIA, UNSPECIFIED 12/17/2016 INÉS AGUILAR MD Ot I10 ESSENTIAL (PRIMARY) HYPERTENSION 12/17/2016 INÉS AGUILAR MD Ot I25.10 ATHSCL HEART DISEASE OF [place] CORONARY 12/17/2016 INÉS AGUILAR MD Ot M48.06 SPINAL STENOSIS, LUMBAR REGION 12/17/2016 INÉS AGUILAR MD Ot M54.5 LOW BACK PAIN 12/17/2016 INÉS AGUILAR MD Ot M62.838 OTHER MUSCLE SPASM 12/17/2016 INÉS AGUILAR MD Ot N39.0 URINARY TRACT INFECTION, SITE NOT SPECIF 12/17/2016 INÉS AGUILAR MD Ot Z79.82 GROUP HOME (CURRENT) USE OF ASPIRIN 12/17/2016 INÉS AGUILAR MD Ot Z79.84 GROUP HOME (CURRENT) USE OF ORAL HYPOGLYC 12/17/2016 INÉS AGUILAR MD Ot Z90.710 ACQUIRED ABSENCE OF BOTH CERVIX AND UTER 12/17/2016 INÉS AGUILAR MD Ot Z95.5 PRESENCE OF CORONARY ANGIOPLASTY IMPLANT 01/11/2017 RENÉ GUILLAUME RN MOBILE Ot R07.81 PLEURODYNIA 01/23/2017 RENÉ GUILLAUME RN MOBILE Ot R07.81 PLEURODYNIA 08/07/2017 RAGHAV CHAMBERS, MIRI Stinson Ot Z12.31 ENCNTR SCREEN MAMMOGRAM FOR MALIGNANT NE Procedures There is no data. Results Test Result Range Complete urinalysis with reflex to culture - 05/11/16 07:52 Urine color determination YELLOW NRG Urine clarity determination CLEAR NRG Urine pH measurement by test strip 5 5-9 Specific gravity of urine by test strip 1.015 1.016- 1.022 Urine protein assay by test strip, semi-quantitative 3+ NEGATIVE Urine glucose detection by automated test strip NEGATIVE NEGATIVE Erythrocytes detection in urine sediment by light microscopy NEGATIVE NEGATIVE Urine ketones detection by automated test strip NEGATIVE NEGATIVE Urine nitrite detection by test strip NEGATIVE NEGATIVE Urine total bilirubin detection by test strip NEGATIVE NEGATIVE Urine urobilinogen measurement by automated test strip (mass/volume) NORMAL NORMAL Urine leukocyte esterase detection by dipstick NEGATIVE NEGATIVE Automated urine sediment erythrocyte count by microscopy (number/high power field) NONE NRG Automated urine sediment leukocyte count by microscopy (number/high power field ) [HPF] NRG Bacteria detection in urine sediment by light microscopy MODERATE NRG Squamous epithelial cells detection in urine sediment by light microscopy 5-10 NRG Crystals detection in urine sediment by light microscopy NONE NRG Casts detection in urine sediment by light microscopy NONE NRG Mucus detection in urine sediment by light microscopy NEGATIVE NRG Complete urinalysis with reflex to culture YES NRG PT panel in platelet poor plasma by coagulation assay - 05/11/16 07:52 Prothrombin time (PT) in platelet poor plasma by coagulation assay 11.5 s 12.2-14.7 INR in platelet poor plasma or blood by coagulation assay 0.9 0.8-1.4 Activated partial thromboplastin time (aPTT) in platelet poor plasma bycoagulation assay - 05/11/16 07:52 Activated partial thromboplastin time (aPTT) in platelet poor plasma bycoagulation assay 28 s 24-35 Comprehensive metabolic panel - 05/11/16 07:52 Serum or plasma sodium measurement (moles/volume) 140 mmol/L 135-145 Serum or plasma potassium measurement (moles/volume) 4.2 mmol/L 3.6-5.0 Serum or plasma chloride measurement (moles/volume) 105 mmol/L 98-107 Carbon dioxide 22 mmol/L 21-32 Serum or plasma anion gap determination (moles/volume) 13 mmol/L 5-14 Serum or plasma urea nitrogen measurement (mass/volume) 40 mg/dL 7-18 Serum or plasma creatinine measurement (mass/volume) 1.35 mg/dL 0.60-1.30 Serum or plasma urea nitrogen/creatinine mass ratio 30 NRG Serum or plasma creatinine measurement with calculation of estimated glomerular filtration rate 39 NRG Serum or plasma glucose measurement (mass/volume) 118 mg/dL 70-105 Serum or plasma calcium measurement (mass/volume) 9.8 mg/dL 8.5-10.1 Serum or plasma total bilirubin measurement (mass/volume) 0.3 mg/dL 0.1-1.0 Serum or plasma alkaline phosphatase measurement (enzymatic activity/volume) 60 U/L 40-136 Serum or plasma aspartate aminotransferase measurement (enzymatic activity/ volume) 20 U/L 5-34 Serum or plasma alanine aminotransferase measurement (enzymatic activity/volume ) 31 U/L 0-55 Serum or plasma protein measurement (mass/volume) 8.2 g/dL 6.4-8.2 Serum or plasma albumin measurement (mass/volume) 4.8 g/dL 3.2-4.5 Lipid 1996 panel - 05/11/16 07:52 Serum or plasma triglyceride measurement (mass/volume) 123 mg/dL <150 Serum or plasma cholesterol measurement (mass/volume) 204 mg/dL < 200 Serum or plasma cholesterol in HDL measurement (mass/volume) 69 mg/ dL 40-60 Cholesterol in LDL [mass/volume] in serum or plasma by direct assay 120 mg/dL 1-129 Serum or plasma cholesterol in VLDL measurement (mass/volume) 25 mg/ dL 5-40 Bacterial urine culture - 05/11/16 07:52 Bacterial urine culture NG NRG Methicillin resistant Staphylococcus aureus (MRSA) screening culture - 07:52 Methicillin resistant Staphylococcus aureus (MRSA) screening culture NEG NRG Complete urinalysis with reflex to culture - 12/12/16 11:15 Urine color determination YELLOW NRG Urine clarity determination SLIGHTLY CLOUDY NRG Urine pH measurement by test strip 7 5-9 Specific gravity of urine by test strip 1.010 1.016- 1.022 Urine protein assay by test strip, semi-quantitative 3+ NEGATIVE Urine glucose detection by automated test strip NEGATIVE NEGATIVE Erythrocytes detection in urine sediment by light microscopy NEGATIVE NEGATIVE Urine ketones detection by automated test strip NEGATIVE NEGATIVE Urine nitrite detection by test strip NEGATIVE NEGATIVE Urine total bilirubin detection by test strip NEGATIVE NEGATIVE Urine urobilinogen measurement by automated test strip (mass/volume) NORMAL NORMAL Urine leukocyte esterase detection by dipstick 3+ NEGATIVE Automated urine sediment erythrocyte count by microscopy (number/high power field) [HPF] NRG Automated urine sediment leukocyte count by microscopy (number/high power field ) [HPF] NRG Bacteria detection in urine sediment by light microscopy NEGATIVE NRG Squamous epithelial cells detection in urine sediment by light microscopy 5-10 NRG Crystals detection in urine sediment by light microscopy NONE NRG Casts detection in urine sediment by light microscopy NONE NRG Mucus detection in urine sediment by light microscopy NEGATIVE NRG Complete urinalysis with reflex to culture YES NRG Bacterial urine culture - 12/12/16 11:15 Bacterial urine culture [id number] NRG COLONY COUNT 10,000/ML - 100,000/ML NRG FTX;REPORTABLE SENSITIVITY REPORTED 12/13 16:31 NRG URINE CULTURE RESULTS PLUS NRG Bacterial susceptibility panel - 12/12/16 11:15 Gentamicin susceptibility test by minimum inhibitory concentration < = NRG Trimethoprim/sulfamethoxazole susceptibility test by minimum inhibitoryconcentration <= NRG Tobramycin susceptibility test by minimum inhibitory concentration < = NRG Cefazolin susceptibility test by minimum inhibitory concentration > = NRG Piperacillin/tazobactam susceptibility test by minimum inhibitory concentration 32 NRG Ciprofloxacin susceptibility test by minimum inhibitory concentration <= NRG Meropenem susceptibility test by minimum inhibitory concentration < = NRG Nitrofurantoin susceptibility test by minimum inhibitory concentration 32 NRG Aztreonam susceptibility test by minimum inhibitory concentration < = NRG Cefepime susceptibility test by minimum inhibitory concentration <= NRG Encounters ACCT No. Visit Date/Time Discharge Status Pt. Type Provider Facility Loc./Unit Complaint [id number] 08/07/2017 10:30:00 08/07/2017 23:59:59 CLS Preadmit MIRI AVILEZ MD [facility] RAD SCREENING MAMMO [id number] 12/21/2016 13:57:00 12/21/2016 23:59:59 CLS Outpatient RENÉ GUILLAUME APRN [facility] RAD RIGHT RIB PAIN AFTER FALL [id number] 12/12/2016 09:39:00 12/12/2016 14:22:00 DIS Emergency INÉS AGUILAR MD [facility] ER BACK PAIN [id number] 11/04/2016 07:14:00 11/04/2016 10:30:00 DIS Outpatient DAREN ALMODOVAR MD [facility] ENDO SCREENING AND REFLUX WITH EPIGASTRIC PAIN [id number] 11/02/2016 10:00:00 11/02/2016 11:05:00 DIS Outpatient DAREN ALMODOVAR MD [facility] PREOP SCREENING/REFLUX WITH EPIGASTRIC PAIN [id number] 05/11/2016 07:16:00 05/11/2016 15:40:00 DIS Outpatient ASIA FORD MD [facility] CATH ABN STRESS TEST,CAD,HTN, HLP [id number] 05/02/2016 07:56:00 05/02/2016 23:59:59 CLS Outpatient ASIA FORD MD [facility] CARD CAD,DIABETES [id number] 04/25/2016 12:30:00 04/25/2016 23:59:59 CLS Outpatient ASIA FORD MD [facility] CARD CAD,DIABETES [id number] 09/03/2015 07:19:00 09/03/2015 16:35:00 DIS Outpatient RUPERTO MARQUEZ DO [facility] [id number] 09/01/2015 09:28:00 09/01/2015 23:59:59 CLS Outpatient RUPERTO MARQUEZ DO [facility] PREOP [id number] 08/19/2015 08:41:00 08/20/2015 12:40:00 DIS Inpatient MIRI AVILEZ MD [facility] [id number] 08/03/2015 11:55:00 08/03/2015 23:59:59 CLS Outpatient RENÉ GUILLAUME APRN [facility] RAD [id number] 01/08/2015 09:15:00 01/08/2015 23:59:59 CLS Outpatient ROMERO VELAZQUEZ APRN [facility] CARD
== END 2017-08-14 17:58 | disposition home or self-care (01) ==
LOC: EDUNIT# 14:35 → ER 14:37
DX: S02.2XXA Fracture of nasal bones, initial encounter for closed fracture (principal); M25.561 Pain in right knee; M25.562 Pain in left knee; R07.2 Precordial pain; I25.10 Atherosclerotic heart disease of native coronary artery without angina pectoris; E78.00 Pure hypercholesterolemia, unspecified; I10 Essential (primary) hypertension; K21.9 Gastro-esophageal reflux disease without esophagitis; M81.0 Age-related osteoporosis without current pathological fracture; E03.9 Hypothyroidism, unspecified; E11.9 Type 2 diabetes mellitus without complications; R40.2142 Coma scale, eyes open, spontaneous, at arrival to emergency department; R40.2252 Coma scale, best verbal response, oriented, at arrival to emergency department; R40.2362 Coma scale, best motor response, obeys commands, at arrival to emergency department; Z88.5 Allergy status to narcotic agent; Z88.8 Allergy status to other drugs, medicaments and biological substances; Z79.82 Long term (current) use of aspirin; Z23 Encounter for immunization; Z79.84 Long term (current) use of oral hypoglycemic drugs; Z79.52 Long term (current) use of systemic steroids; Z96.653 Presence of artificial knee joint, bilateral; Z96.641 Presence of right artificial hip joint; Z95.5 Presence of coronary angioplasty implant and graft; Z90.710 Acquired absence of both cervix and uterus; W01.0XXA Fall on same level from slipping, tripping and stumbling without subsequent striking against object, initial encounter
CPT/HCPCS: 70450; 70486; 72125; 90471; 90715; 99284

== ENCOUNTER → 2017-09-13 | Outpatient (CLI) | payer MEDICARE, OTHER | LOC: RAD 07:44 | PROVIDERS: ATTEND Family Medicine | DX: Z12.31 Encounter for screening mammogram for malignant neoplasm of breast (principal) | CPT/HCPCS: 77067 ==